=== PATIENT | female | born 1960 | race Caucasian/White ===

== ENCOUNTER → 2017-04-09 | Outpatient (CLI) | payer OTHER ==
[~2017-04-09] MED LIST: AMBIEN 10 MG TA10 MG PO; AMBIEN 5 MG TABL5 M1 PO; ATIVAN1 M1 PO; AUGMENTIN 875875 MG PO; CALCIUM 500 +1 EAC5 PO; CALCIUM/MAGNESIUM PO; CARVEDILOL3.125 MG PO; CIPRO500 MG PO; CIPROFLOXACIN500 M1 PO; CLIMARA 0.070.075 MG TRANSDERM; COLACE100 MG PO; DIFLUCAN200 MG PO; DIOVAN HCT 1601 EAC1 PO; DIPHENHYDRAM50 MG/M2 IV PUSH; DULCOLAX STOOL100 MG PO; FLAGYL500 MG PO; HYDROCODONE-AP1 EAC6 PO; IBUPROFEN 600600 M1 PO; LEVOTHYROXIN0.025 MG PO; LEVOTHYROXINE 0.1 MG PO; LISINOPRIL2.5 MG PO; MAGNESIUM OXID400 MG PO; MILK OF MA2400 MG/10 PO; MIRALAX17 GM PO; MULTIVITAMIN PO; NAPROSYN375 MG PO; NORCO 5-325 TA1 EACH PO; ONDANSETRON HCL4 M2 PO; OTHER MISCELL; PERCOCET 5-3251 EACH PO; PHENERGAN 25 MG25 M1 PO; POTASSIUM20 PO; PROTONIX40 M1 PO; SENOKOT-S1 TA1 PO; SERTRALINE HCL50 MG PO; SPIRONOLACTONE25 M1 PO; TYLENOL325 MG PO; VANCOCIN 250 M250 M1 PO; VENTOLIN HFA 1818 GM INH; VITAMIN B-1100 M1 PO; VIVELLE-DOT1 EAC1 TD; VIVELLE-DOT1 EAC1 TRANSDERM; VIVELLE-DOT1 EAC2 TRANSDERM; XANAX 0.5 MG0.5 MG PO; ZOCOR20 MG PO; ZOFRAN 4 MG ORAL4 MG PO; ZOFRAN ODT4 MG PO; [UNRECOGNIZED DRUG - OTHER] PO
--- NOTE | ~2017-04-09 | EXE ---
[facility] [employer] [place] [address] STRESS ECHOCARDIOGRAM Name: ALLAN PRYOR Room #: [facility]#: [id number] Admission: 04/09/17 Attend Phys: Arjun Cabrera MD Discharge: Date of : 56 Date of Service: 04/09/17 1716 Report #: [id number] THIS REPORT FOR: //name// APPROVED REPORT Exam: Stress Echocardiogram Indication: Chest pain Patient Location: Out-Patient Stress Nurse: Marisol Soto RN HR: 90 bpm Rhythm: NSR Medical History Medical History: Cardiac arrest, cardiomyopathy Allergies: Morphine Cardiac Risk Factors: HTN, Hyperlipidemia, Smoking Procedure The patient underwent an Exercise Stress Test using the Ron Protocol. Blood pressure, heart rate, and EKG were monitored. An Echocardiogram was performed by splicing technician in four stages in quad fashion. At peak stress, four selected images were obtained and placed side by side with resting images for comparison. Stress Test Details Stress Test: Exercise stress testing was performed using a Ron protocol. HR Resting HR: 90 bpm Max Heart Rate (APMHR): 162 bpm Max HR Achieved: 146 bpm Target HR (85% APMHR): 137 bpm % of APMHR: 90 Recovery HR: 104 bpm HR response to stress: Normal HR response to stress BP Resting BP: 127/96 mmHg Max BP: 148/100 mmHg Recovery BP: 118/82 mmHg ECG Resting ECG: Sinus Rhythm, nonspecific ST-T abnormalities Stress ECG: Sinus Rhythm, nonspecific ST-T abnormalities ST Change: Non-ischemic [facility] [address] [place] [address] STRESS ECHOCARDIOGRAM Name: ALLAN PRYOR Room #: [facility]#: [id number] Admission: 04/09/17 Attend Phys: Arjun Cabrera MD Discharge: Date of : 56 Date of Service: 04/09/171715 Report #: [id number] Clinical Reason for Termination: Shaking, short of breath, fatigue Exercise duration: 5 min 4 sec Exercise capacity: 7.00 METs Pre-Stress Echo The resting Echocardiogram showed normal left ventricular contractility with an estimated Ejection Fraction of about 50-55%. Normal wall motion in all segments on baseline images. Post-Stress Echo The stress Echocardiogram showed normal left ventricular contractility with an estimated Ejection Fraction of about 65%. Clinical Normal augmentation of myocardial wall segments using a 17 segment model. Conclusion Clinical Response: Non-ischemic Exercise Capacity: Average Stress ECG Response: Non-ischemic Stress Echo Images: Non-ischemic Other Information Study Quality: Adequate <ELECTRONICALLY SIGNED> By: Arjun Cabrera MD 04/09/171715 15 1716 Arjun Cabrera MD /INF
== END ==
LOC: CV 09:40
DX: R07.9 Chest pain, unspecified (principal)

== ENCOUNTER → 2017-10-28 | Outpatient (CLI) | payer OTHER | LOC: CAT 10-27 12:09 | DX: N28.1 Cyst of kidney, acquired (principal); M47.896 Other spondylosis, lumbar region; Z90.49 Acquired absence of other specified parts of digestive tract; Z90.710 Acquired absence of both cervix and uterus ==

== ENCOUNTER → 2017-11-17 | Outpatient (CLI) | payer OTHER | LOC: NUC 11-06 11:02 | DX: R10.9 Unspecified abdominal pain (principal); R63.4 Abnormal weight loss ==

== ENCOUNTER → 2018-01-13 | Outpatient (CLI) | payer OTHER | LOC: RAD 06:25 | DX: K46.9 Unspecified abdominal hernia without obstruction or gangrene (principal) ==

== ENCOUNTER → 2018-05-03 | Outpatient (CLI) | payer OTHER ==
--- NOTE | ~2018-05-03 | 2DMMODE ---
[facility] [place] [address] 2 D/M-MODE ECHOCARDIOGRAM Name: ALLAN PRYOR Room #: REG [facility]#: [id number] Admission: 05/03/18 Attend Phys: Arjun Cabrera MD Discharge: Date of : 56 Date of Service: 05/03/18 1041 Report #: [id number] THIS REPORT FOR: //name// APPROVED REPORT Study performed: 05/03/2018 09:38:42 EXAM: Comprehensive 2D, Doppler, and color-flow Echocardiogram Patient Location: Out-Patient Status: routine BSA: 1.38 HR: 71 bpm BP: 137/100 mmHg Rhythm: NSR Other Information Study Quality: Adequate/parasternal window Indications Cardiomyopathy, CAD. Hx: Cardiac arrest, HTN 2D Dimensions RVDd: 30.09 mm LVEF(%): 55.36 (>50%) IVSd: 9.03 (7-11mm) LVOT Diam: 19.39 (18-24mm) LVDd: 39.02 mm PWd: 10.22 (7-11mm) LVDs: 27.97 (25-40mm) Aortic Root: 31.30 mm Arnold's LVEF: 55.36 % Volumes Left Atrial Volume (Systole) Single Plane 4CH: 16.36 mL Single Plane 2CH: 20.16 mL Aortic Valve AoV Peak Abhishek.: 1.03 m/s AO Peak Gr.: 4.20 mmHg Mitral Valve E/A Ratio: 0.8 MV Decel. Time: 279.52 ms MV E Max Abhishek.: 0.54 m/s MV A Abhishek.: 0.65 m/s [facility] [address] [address] 2 D/M-MODE ECHOCARDIOGRAM Name: ALLAN PRYOR Room #: [facility]#: [id number] Admission: 05/03/18 Attend Phys: Arjun Cabrera MD Discharge: Date of : 56 Date of Service: 05/03/18 1041 Report #: [id number] PHT: 81.06 ms IVRT: 101.50 ms Pulmonary Valve PV Peak Abhishek.: 0.77 m/s PV Peak Gr.: 2.36 mmHg Tricuspid Valve TR Peak Abhishek.: 2.19 m/s RAP Estimate: 5.00 mmHg TR Peak Gr.: 19.21 mmHg PA Pressure: 24.00 mmHg Left Ventricle The left ventricle is normal size. There is normal LV segmental wall motion. There is normal left ventricular wall thickness. Left ventricular systolic function is normal. LVEF is 50- 55%. Mild diastolic dysfunction is present (impaired relaxation pattern). Right Ventricle The right ventricle is normal size. The right ventricular systolic function is normal. Atria The left atrium size is normal. The right atrium size is normal. Aortic Valve Aortic valve leaflets are mildly thickened. No aortic regurgitation is present. There is no aortic valvular stenosis. Mitral Valve The mitral valve is normal in structure. Trace mitral regurgitation. No evidence of mitral valve stenosis. Tricuspid Valve The tricuspid valve is normal in structure. Mild tricuspid regurgitation. Estimated PAP is 25mmHg. Pulmonic Valve The pulmonary valve is normal in structure. Trace pulmonic regurgitation. Great Vessels The aortic root is normal in size. Ascending aorta is not well visualized. IVC is normal in size and collapses >50% with inspiration. [facility] [place] [address] 2 D/M-MODE ECHOCARDIOGRAM Name: ALLAN PRYOR Room #: REG [facility]#: [id number] Admission: 05/03/18 Attend Phys: Arjun Cabrera MD Discharge: Date of : 56 Date of Service: 05/03/18 1041 Report #: [id number] Pericardium There is no pericardial effusion. <Conclusion> The left ventricle is normal size. There is normal left ventricular wall thickness. Left ventricular systolic function is normal. Mild diastolic dysfunction is present (impaired relaxation pattern). The right ventricle is normal size. The left atrium size is normal. There is no aortic valvular stenosis. Trace mitral regurgitation. Mild tricuspid regurgitation. Estimated PAP is 25mmHg. <ELECTRONICALLY SIGNED> By: Arjun Cabrera MD 05/03/181040 40 40 Arjun Cabrera MD /WHIT
== END ==
LOC: CV 08:52
DX: I07.1 Rheumatic tricuspid insufficiency (principal); I25.10 Atherosclerotic heart disease of native coronary artery without angina pectoris; I42.9 Cardiomyopathy, unspecified; I10 Essential (primary) hypertension

== ENCOUNTER 2019-02-18 18:07 | Inpatient (IN) | payer OTHER ==
[~2019-02-18] VITALS: Ht 162.6 cm; Wt 47.6 kg
[2019-02-18 18:07] VITALS: BP 154/128
[2019-02-18 18:22] LABS: ABSOLUTE NEUTROPHILS 3.6 thou/uL (1.4-8.2); BASOPHILS 0.7 % (0.0-2.0); EOSINOPHILS 1.5 % (0.0-3.0); HEMOGLOBIN 13.6 gm/dL (12.0-15.0); LYMPHOCYTES 27.1 % (24.0-44.0); MCH 36.2 pg (26.0-34.0); MCV 106.6 fL (80.0-100.0); PLATELET COUNT 155 thou/uL (150-400); POLYS 62.7 % (36.0-66.0); RBC 3.75 mil/uL (4.20-5.00); WBC 5.7 thou/uL (4.0-11.0)
[2019-02-18 18:48] LABS: ALBUMIN 4.1 g/dL (3.4-5.0); CALCIUM 10.2 mg/dL (8.5-10.1); TOTAL BILIRUBIN 0.8 mg/dL (<0.1-1.0); TOTAL PROTEIN 8.1 g/dL (6.4-8.2)
--- NOTE | 2019-02-18 19:06 | NUR ---
LAB CALLED REQUESTING MORE URINE FOR ORDERED TESTS. NURSE NOTIFIED
[2019-02-18 19:14] LABS: POTASSIUM 2.9 mmol/L (3.5-5.1)
[2019-02-18 21:32] LABS: URINE BLOOD NEGATIVE (Negative); URINE CLARITY CLEAR; URINE COLOR YELLOW; URINE GLUCOSE-RANDOM* NEGATIVE (Negative); URINE KETONES 1+ (Negative); URINE LEUKOCYTES-REFLEX NEGATIVE (Negative); URINE NITRITE-REFLEX NEGATIVE (Negative); URINE PROTEIN (DIPSTICK) 1+ (Negative); URINE SPECIFIC GRAVITY 1.015 (1.005-1.035); URINE UROBILINOGEN 0.2 E.U./dl (0.2-1.0)
[2019-02-18 21:34] LABS: ICTOTEST (BILI CONFIRMATORY) Negative (Negative); URINE BILIRUBIN NEGATIVE (Negative)
[2019-02-18 21:40] LABS: AMP/METHAMP Negative (Negative); BARBITURATES Negative (Negative); BENZODIAZEPINES Negative (Negative); COCAINE Negative (Negative); METHADONE Negative (Negative); OPIATES Negative (Negative); PCP Negative (Negative)
[2019-02-18 21:41] VITALS: BP 134/106
[2019-02-18 21:42] LABS: CRYSTALS None Seen /LPF (None Seen); HYALINE CASTS 0-3 Few /LPF (None Seen); MUCUS 0-3 Light strn/LPF (None Seen); SQUAMOUS 0-3 Few /LPF (0-3); URINE RBC None Seen /HPF (0-2); URINE WBC-REFLEX 0-5 Rare /HPF (0-5)
[2019-02-18 22:06] VITALS: BP 134/106
[2019-02-18 22:15] VITALS: BP 132/97
[2019-02-18 22:19] LABS: PHOSPHORUS 3.5 mg/dL (2.5-4.9)
[2019-02-18 23:13] LABS: FOLIC ACID 42.7 ng/mL (8.6-58.9)
--- NOTE | 2019-02-18 23:37 | NUR ---
PATIENT WAS A NEW ADMISSION TO THE UNIT THIS SHIFT. SHE ARRIVED VIA CART FROM THE ER AND WAS TRANSFERRED TO THE BED WITHOUT INCIDENT. PATIENT IS FULLY ALERT AND ORIENTED AND ABLE TO PARTICIPATE IN ADMISSION PROCESS AND CALL APPROPRIATELY FOR REQUESTS. SEIZURE PRECAUTIONS INITIATED WITH CIWA SCORE OF 4. NURSE TO COMPLETE ADMISSION PROCESS AND INITIATE CARE PLAN.
[2019-02-18] MEDS ORDERED: SYNTHROID88 MCG PO (23:41)
[2019-02-18 23:50] VITALS: BP 143/104
[2019-02-19 04:40] VITALS: BP 138/100
[2019-02-19 05:41] LABS: CALCIUM 9.1 mg/dL (8.5-10.1); CREATININE 0.7 mg/dL (0.6-1.0); MAGNESIUM 2.8 mg/dL (1.8-2.4); POTASSIUM 3.6 mmol/L (3.5-5.1)
[2019-02-19 07:47] VITALS: BP 139/96
--- NOTE | 2019-02-19 11:03 | EKG ---
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: JIMY : 1960 Requested By: Bishnu Marquis Order Number: [id number] MD: Arjun Cabrera Measurements Intervals [place] Rate: 99 P: 68 FL: 146 QRS: 16 QRSD: 85 T: 12 QT: 364 QTc: 468 Interpretive Statements Sinus rhythm Probable left atrial enlargement Nonspecific ST segment abnormalities Compared to ECG 05/06/2016 12:39:14 Sinus tachycardia no longer present Electronically Signed On 02-19-2019 11:03:42 CDT by Arjun Cabrera [email or web address] ��������������������������������������������� <ELECTRONICALLY SIGNED> ���������������������������������������� By: Arjun Cabrera MD ��������������������������������������������� 02/19/19 1103 16 16 Arjun Cabrera MD /TRAN
[2019-02-19 11:11] VITALS: BP 121/89
[2019-02-19 15:48] VITALS: BP 129/91
[2019-02-19 20:02] VITALS: BP 139/93
--- NOTE | 2019-02-19 21:21 | NUR ---
PT A&OX4, VSS, HAVING TONGUE PAIN. PATIENT HAS A LIDOCAINE SWISH FOR HER TONGUE. MRI AND EEG DONE TODAY. NO SIGNS OF DISTRESS. HAND TREMORS. STEADY ON FEET X1 ASSITST TO BATHROOM. AT BEDSIDE. ALL BED RAILS UP AND PADDED FOR SEIZURE PRECAUTION. FALL BUNDLE IN PLACE. WILL CONTIUE TO MONITOR.
[2019-02-20 05:14] LABS: CALCIUM 9.1 mg/dL (8.5-10.1); CREATININE 0.6 mg/dL (0.6-1.0); MAGNESIUM 1.3 mg/dL (1.8-2.4); PHOSPHORUS 3.6 mg/dL (2.5-4.9); POTASSIUM 3.7 mmol/L (3.5-5.1)
--- NOTE | 2019-02-20 07:30 | NUR ---
Pt. has slept fair during the night. Lorazepam given x2 this shift for anxiety. Tylenol given for headache at HS with good relief. CIWA 2-3. No seizure activities. Seizure precautions maintained. Bed alarm on for safety. Afebrile. No nausea or vomiting. Up with assist to bathroom x1. Will continue to monitor.
[2019-02-20 07:40] VITALS: BP 146/99
[2019-02-20] MEDS ORDERED: VITAMIN B-1100 M2 PO (08:30)
[2019-02-20] MEDS ORDERED: MULTIVITAMINS1 EAC7 PO (08:30)
[2019-02-20 11:23] VITALS: BP 139/97
[2019-02-20 11:24] LABS: CHOLESTEROL 213 mg/dL (<200); HDL CHOLESTEROL 106 mg/dL (>40); LDL CHOLESTEROL 93 mg/dL (<100); TRIGLYCERIDE 71 mg/dL (<150); VLDL 14 mg/dL (<40)
[2019-02-20 15:10] VITALS: BP 147/88
[2019-02-20 19:20] VITALS: BP 142/103
[2019-02-20 19:23] VITALS: BP 138/96
--- NOTE | 2019-02-20 20:55 | NUR ---
ASSUMED CARE OF PATIENT AT 0715, PATIENT ALERT AND ORIENTED X 4. PATIENT UP AD ALLYSON. FALL PRECATIONS IN PLACE, PATIENT AND SPOUSE INSTRUCTED ABOUT BED/CHAIR ALARM, BUT NEEDS REINFORCEMENT. CIWA DONE THIS SHIFT AND IS NORMAL, NO SIDE EFFECTS NOTED. PATIENT C/O PAIN WITH TONGUE AREA, RECEIVED TYLENOL 650 MG X 1 AND LIDOCAINE SWISH AND SPIT X 1 WITH PARTIAL RELIEF. PATIENT HAS RIGHT FOREARM IV WITH NS AT 125CC/HR, PATIENT RECEIVED 1 IV ANTIBIOTIC THIS SHIFT. AT BEDSIDE MOST OF THE DAY. DR KAUR HER THIS AM,A DN ORDER RECEIVED TO DISCHARGE PATIENT TO HOME, WANTS TO SPEAK WITH THE DOCTOR, THIS RN NOTIFIED DR KAUR WHO SPOKE WITH THE , AND PATIENT WILL NOT DISCHARGE TODAY. PATIENT RECEIVED MAGNESIUM 2 GM IVPB X 1 THIS SHIFT, MAGNESIUM LEVEL 1.3. WILL CONTINUE TO MONITOR.
[2019-02-21] VITALS (9 sets, daily range): BP systolic 119–184; BP diastolic 88–124
--- NOTE | 2019-02-21 03:26 | NUR ---
ASSUMED PT CARE AROUND 1900. A&OX4, FORGETFUL. C/O TONGUE PAIN FROM BITING IT AT HOME DURING HER SEIZURE. PAIN MEDICATION GIVEN WITH SOME RELIEF. MILD BILAT HAND TREMORS NOTED. LORAZEPAM GIVEN FOR ANXIETY. PT SLEPT MOST OF THE NIGHT. UP W/ 1 ASSIST TO BTR. FALL PRECAUTIONS IN PLACE. PROGRESSING SLOWLY TOWARD POC GOALS. WILL CONTINUE TO MONITOR FURTHER.
[2019-02-21 05:35] LABS: HEMATOCRIT 33.3 % (37.0-47.0); MCH 36.6 pg (26.0-34.0); MCHC 33.9 g/dL (28.0-37.0); MCV 107.9 fL (80.0-100.0); RBC 3.09 mil/uL (4.20-5.00); RDW 13.3 % (10.5-14.5); WBC 3.7 thou/uL (4.0-11.0)
[2019-02-21 05:36] LABS: HEMOGLOBIN 11.3 gm/dL (12.0-15.0)
[2019-02-21 05:52] LABS: CALCIUM 9.3 mg/dL (8.5-10.1); CREATININE 0.7 mg/dL (0.6-1.0); MAGNESIUM 1.4 mg/dL (1.8-2.4); POTASSIUM 3.6 mmol/L (3.5-5.1)
--- NOTE | 2019-02-21 10:40 | 2DMMODE ---
[facility] [address] [place] [address] 2 D/M-MODE ECHOCARDIOGRAM Name: ALLAN PRYOR Ivan Room #: 354-P [facility] IN M.R.#: [id number] ������������� Admission: 02/18/19 ������������� Attend Phys: Reno Gipson, Discharge: ��� ������������� ��� Date of : 56 Date of Service: 02/21/19 1040 �� Report #: [id number] �������� ��������������������������������������������[id number] THIS REPORT FOR: //name// APPROVED REPORT Study performed: 02/21/2019 10:05:16 EXAM: Comprehensive 2D, Doppler, and color-flow Echocardiogram Patient Location: Echo lab Room #: 354 Status: routine BSA: 1.49 HR: 94 bpm BP: 163/104 mmHg Rhythm: NSR Other Information Study Quality: Good Indications Sycope vs. seizure. Hx: Cardiac arrest x 2. HTN. 2D Dimensions RVDd: 28.88 mm IVSd: 9.34 (7-11mm) LVOT Diam: 20.62 (18-24mm) LVDd: 45.16 mm PWd: 8.56 (7-11mm) LVDs: 33.73 (25-40mm) Aortic Root: 35.45 mm Volumes Left Atrial Volume (Systole) Single Plane 4CH: 21.07 mL Single Plane 2CH: 34.10 mL LA ESV Index: 20.00 mL/m2 Aortic Valve AoV Peak Abhishek.: 0.98 m/s AO Peak Gr.: 3.84 mmHg LVOT Max P.50 mmHg LVOT Max V: 0.79 m/s ALPA Vmax: 2.69 cm2 Mitral Valve E/A Ratio: 0.5 MV Decel. Time: 255.67 ms MV E Max Abhishek.: 0.49 m/s [facility] [address] [place] [address] 2 D/M-MODE ECHOCARDIOGRAM Name: ALLAN PRYOR [facility] [id number] ������������� Admission: 02/18/19 ������������� Attend Phys: Reno Gipson, Discharge: ��� ������������� ��� Date of : 56 Date of Service: 02/21/19 1040 �� Report #: [id number] �������� ��������������������������������������������[id number] MV A Abhihsek.: 0.91 m/s MV PHT: 74.15 ms IVRT: 110.73 ms Pulmonary Valve PV Peak Abhishek.: 0.55 m/s PV Peak Gr.: 1.21 mmHg Pulmonary Vein P Vein S: 0.78 m/s P Vein D: 0.38 m/s P Vein S/D Ratio: 2.05 Tricuspid Valve TR Peak Abhishek.: 2.22 m/s RAP Estimate: 5.00 mmHg TR Peak Gr.: 19.79 mmHg PA Pressure: 25.00 mmHg Left Ventricle The left ventricle is normal size. There is normal LV segmental wall motion. There is normal left ventricular wall thickness. Left ventricular systolic function is normal. LVEF is 55%. Mild diastolic dysfunction is present (impaired relaxation pattern). Right Ventricle The right ventricle is normal size. The right ventricular systolic function is normal. Atria The left atrium size is normal. The right atrium size is normal. Aortic Valve Aortic valve leaflets are mildly thickened. Trace aortic regurgitation. There is no aortic valvular stenosis. Mitral Valve The mitral valve is normal in structure. Trace to mild mitral regurgitation. Tricuspid Valve The tricuspid valve is normal in structure. Mild tricuspid regurgitation. Estimated PAP is 25mmHg. Pulmonic Valve Pulmonic valve is not well visualized. Trace pulmonic regurgitation. [facility] [address] [place] [address] 2 D/M-MODE ECHOCARDIOGRAM Name: ALLAN PRYOR Room #: 354-P [facility] IN .R.#: [id number] ������������� Admission: 02/18/19 ������������� Attend Phys: Reno Gipson, Discharge: ��� ������������� ��� Date of : 56 Date of Service: 02/21/19 1040 �� Report #: [id number] �������� ��������������������������������������������[id number] Great Vessels The aortic root is normal in size. Ascending aorta is not well visualized. IVC is normal in size and collapses >50% with inspiration. Pericardium There is no pericardial effusion. <Conclusion> The left ventricle is normal size. There is normal left ventricular wall thickness. Left ventricular systolic function is normal. Mild diastolic dysfunction is present (impaired relaxation pattern). The right ventricle is normal size. The left atrium size is normal. The right atrium size is normal. Trace aortic regurgitation. Trace to mild mitral regurgitation. Mild tricuspid regurgitation. Estimated PAP is 25mmHg. ��������������������������������������������� <ELECTRONICALLY SIGNED> ���������������������������������������� By: Arjun Cabrera MD ��������������������������������������������� 02/21/19 1040 1040 1040 Arjun Cabrera MD /INF
--- NOTE | 2019-02-21 13:54 | NUR ---
Nutrition: Pt seen due to BMI 18. Admitted following seizure. Hx Daily ETOH, cardiac arrest, multiple abdominal surgeries. Reports current weight is 97# which has has been trending up from a low of 88# 2 months ago. 128# 5 years ago prior to diverticulitis dx/surgeries. Appetite reportedly good. No visible wasting. Agrees to Ensure once a day. Possible discharge noted. Low risk for now.
--- NOTE | 2019-02-21 13:57 | NUR ---
ASSESSMENT: CM REVIEWED CHART AND MET WITH PATIENT AND HER AT THE BEDSIDE. PT REPORTS SHE LIVES IN A HOME WITH HER . PT HAS TWO STEPS TO ENTER WITH NO HANDRAILS. PT REPORTS 14 STEPS WITH HANDRAILS TO HER BEDROOM. PT REPORTS SHE AMBULATES INDEPENDENTLY BUT DOES HAVE A CANE/WALKER/WHEELCHAIR. PT REPORTS SHE IS INDEPENDENT WITH ADLS. PT REPORTS HAVING A GRAB BAR AND SHOWER CHAIR. PT REPORTS SHE DOES NOT NEED HH AT DISCHARGE. PT REPORTS SHE HAS HAD [facility] IN THE PAST. CM DISCUSSED ROLE. PT DOES NOT ANTICIPATE HAVING ANY NEEDS AT DISCHARGE. CM WILL CONTINUE TO FOLLOW TO ASSIST NEEDED.
[2019-02-21] MEDS ORDERED: LIPITOR 20 MG T20 M1 PO (14:52)
[2019-02-21] MEDS ORDERED: TRI-BUFFERED A325 M1 PO (14:59)
[2019-02-22 04:25] VITALS: BP 118/84
--- NOTE | 2019-02-22 06:07 | NUR ---
PATIENT IS PROGRESSING IN HER CARE PLAN. VITAL SIGNS STABLE WITH PATIENT HAVING NO COMPLAINTS OF NAUSEA. PATIENT DID COMPLAIN OF PAIN WHICH WAS TREATED EFFECTIVELY WITH MEDICATION AND NON PHARMACOLOGICAL INTERVENTION. PATIENT HAS REMAINED FULLY ORIENTED AND ABLE TO CALL APPROPRIATELY FOR REQUESTS. CIWA ASSESSMENT NEGATIVE. PATIENT HAS BEEN UP TO BATHROOM MULTIPLE TIMES WITH ASSISTANCE INCIDENT FREE BUT IS STILL CONSIDERED HIGH FALL RISK. POSSIBLE DISCHARGE SOON. CONTINUE PLAN OF CARE.
[2019-02-22 07:20] VITALS: BP 142/108
[2019-02-22 08:59] LABS: CREATININE 0.7 mg/dL (0.6-1.0); MAGNESIUM 1.7 mg/dL (1.8-2.4); POTASSIUM 3.5 mmol/L (3.5-5.1)
[2019-02-22 11:21] VITALS: BP 152/111
--- NOTE | 2019-02-22 14:50 | NUR ---
ON-GOING ASSESSMENT: CM REVIEWED CHART. PT IS POSSIBLE DISCHARGE LATER TODAY OR TOMORROW. PT DENIES HAVING ANY NEEDS FROM CM.
--- NOTE | 2019-02-22 15:47 | HC ---
[facility] [address] CONSULTATION Name: ALLAN PRYOR Room #: 354-P ADM IN M.R.#: [id number] Admission: 02/18/19 ������������������ Attend Phys: Reno Gipson MD Discharge: ������������������ Date of : 56 Report #: [id number] THIS REPORT FOR: //name// CC: Reno Gipson Physician staff DONNIE PETERSEN DATE OF SERVICE: 02/20/2019 We were asked by Dr. Gipson to see the patient. HISTORY OF PRESENT ILLNESS: The patient is a 58-year-old with seizure disorder. The patient was admitted 02/21/2019. The patient has a pertinent history of cardiac arrest in 2014 after ventral hernia repair. At that time, the patient was thought to have arrhythmias. The patient has done reasonably well, but has had problems with persistent incisional ventral hernia and has nutrition issues. It is not clear what led to the seizure, but it may be nutritional issues, as magnesium was low on admission and potassium was relatively low. In any event, during the workup, an MRI/MRA was done and the report, although somewhat dubious, states that there is low flow or possibly occlusion of the left carotid artery and for this, our input was requested. PAST MEDICAL HISTORY: Past history, as mentioned, is significant for the cardiac arrest. This was done when Opal procedure colostomy done in 2013 was being taken down and the patient was being hooked up again. The patient was noted to have a cardiomyopathy in 11/2014 with an ejection fraction in the 20% to 25% range; by 04/24, ejection fraction was normal. The Opal procedure was originally done for diverticulitis. SOCIAL HISTORY: The patient states she is generally healthy, otherwise. FAMILY HISTORY: Positive for diabetes mellitus and kidney disease in mother. Father had heart disease and hypertension. ALLERGIES: THE PATIENT IS ALLERGIC TO MORPHINE AND BEE STINGS. HOME MEDICATIONS: Albuterol, amitriptyline, aspirin, carvedilol, hyoscyamine sulfate (Levsin), levothyroxine, Lortab, magnesium, Naprosyn, omeprazole, potassium, promethazine, sertraline and tizanidine. REVIEW OF SYSTEMS: GENERAL: The patient states she is quite thin and had lost some weight, but her weight was rising. No fever. HENT: No hearing changes. No sinus drainage. EYES: No vision change. [address] [address] CONSULTATION Name: ALLAN PRYOR Room #: 354-P [facility] IN [facility]#: [id number] Admission: 02/18/19 ������������������ Attend Phys: Reno Gipson MD Discharge: ������������������ Date of : 56 Report #: [id number] RESPIRATORY: No cough or shortness of breath. CARDIAC: No chest pain. No exertional dyspnea. GASTROINTESTINAL: Has chronic problems with early satiety and bloating, but she is able to control this with medications and diet. GENITOURINARY: No burning or frequency. MUSCULOSKELETAL: No bone or joint pain. SKIN: No rash or infection. NEUROLOGIC: As mentioned, the patient was admitted with seizure. PHYSICAL EXAMINATION: PSYCHIATRIC: The patient is alert and oriented. VITAL SIGNS: Blood pressure 163/104, heart rate 82, respiratory rate 16, temperature 98.9 and O2 sat 94. HEENT: No scleral icterus, no arcus. Normocephalic. Pupils are round and equal. NECK: No mass, no bruit. CHEST: Clear. HEART: Rhythm regular. ABDOMEN: Soft. Ventral hernia noted. PSYCHIATRIC: Shows insight into problem and answers questions appropriately. NEUROLOGIC: No obvious motor or sensory dysfunction. MUSCULOSKELETAL: No bone or joint asymmetry or deformity. SUMMARY: I reviewed the findings with the patient. If there is total occlusion of the carotid, then no further surgical indication exists. If there is substantial doubt about the MRI/MRA, then we should obtain a CT angiogram. I will leave this to the other consults, but as mentioned, if there is substantial doubt, then we should do a confirmatory study and then ultimately the recommendation will be based on that. Thank you for the consult. ��������������������������������������������� <ELECTRONICALLY SIGNED> ���������������������������������������� By: Mohamud Liu MD ��������������������������������������������� 02/22/19 1547 1538 [id number] Mohamud Liu MD /nt
[2019-02-22 15:59] VITALS: BP 136/105
[2019-02-22 16:02] VITALS: BP 142/89
--- NOTE | 2019-02-22 16:21 | NUR ---
ASSUMED CARE OF PT AT APPROX 0700. PT IS ALERT AND ORIENTED X4, MONITORED ON TELE AND ABLE TO MAINTAIN 02 SAT >90 ON RA. EVEN NON LABORED BREATHING. PT IS MONITORED ON TELE. AT BEDSIDE. ASSESMENT CHARTED. PT I ANXIOUS TO LEAVE. NEW CONSULT FOR NEURO AND RENAL US ORDERED. PT TO BE NPO AFTER MIDNIGHT FOR RENAL US. PT AWARE SHE WILL BE HERE ANOTHER DAY AND WILL NOT DC TODAY PLANNED. PT IS TEARFUL, BUT AGREEABLE. BP TREATED WITH ORDERED MEDS. PATIENT AND HAVE BEEN UPDATED ON POC AND DENY AND FURTHER QUESTIONS OR CONCERNS AT THIS TIME. PT IS UP ADLIB IN ROOM AND HALLWAYS. MAKING GOOD PROGRESS TOWARDS POC GOALS. WILL CONTINUE TO MONITOR.
[2019-02-22 19:45] VITALS: BP 149/105; BP 152/105
[2019-02-23 03:45] VITALS: BP 119/80; BP 137/100
[2019-02-23 06:35] VITALS: BP 135/95
[2019-02-23 07:38] VITALS: BP 113/83; BP 114/86
--- NOTE | 2019-02-23 08:02 | NUR ---
PATIENT IS PROGRESSING IN CARE PLAN. VITAL SIGNS STABLE WITH PATIENT HAVING NO COMPLAINTS OF PAIN. PATIENT DID COMPLAIN OF NAUSEA WHICH WAS TREATED APPROPRIATELY. PATIENT REMAINED ORIENTED BUT ANXIOUS OVER SHIFT, AND WAS ABLE TO CALL APPROPRIATELY FOR NEEDS. CIWA COMPLETED. PATIENT WAS UP AD ALLYSON THROUGHOUT SHIFT WITHOUT INCIDENT APPEARING STRONG AND BALANCED WHEN WALKING. CONTINUE PLAN OF CARE.
[2019-02-23 11:32] VITALS: BP 112/82; BP 124/90
--- NOTE | 2019-02-23 11:56 | NUR ---
ON-GOING ASSESSMENT: CM REVIEWED CHART AND SPOKE WITH ATTENDING. PLANS ARE FOR PATIENT TO LIKELY DISCHARGE HOME TODAY. PT REPORTS SHE WILL HAVE NO NEEDS AT DISCHARGE. PTS IS PRESENT AND IS ABLE TO TAKE HER HOME ONCE DISCHARGED.
[2019-02-23] MEDS ORDERED: NORVASC10 MG PO (13:09)
[2019-02-23 14:02] VITALS: BP 124/90
--- NOTE | 2019-02-23 16:51 | NUR ---
ASSUMED CARE OF PT AT APPROX 0700. PT IS ALERT ANDOIRENTED X4. MONITORED ON TELE AND ABLE TO MAINTAIN 02 SAT >90 ON 02 SETTINGS VIA NC. DENIES PAIN AND SOA. EVEN NON LABORED BREATHING AT REST BUT DOES GET LABORED WITH ACTIVITY. 02 SAT REMAINS STABLE AND PT ABLE TO RECOVER QUICKLY. ASSESSMENT CHARTED. THIS AFTERNOON PT COMPLAINS OF CHEST PAIN AND BP IS ELEVATED DOCTOR NOTIFIED AND ORDERED NITRO AND EKG. PT REFUSES NITRO AND STATES THAT IT IS NOT HER CHEST IT IS HER BREAST. BREAST EXAMINED. NO SWELLING OR CHANGE IN TEMPERATURE. PT REQUESTED MEDICATION FOR ANXIETY, ADMINISTERED TO PT. PT AND FAMILY HAVE BEEN UPDATED ON POC. WILL CONTINUE TO MONITOR.
--- NOTE | 2019-02-23 16:58 | NUR ---
ASSUMED CARE OF PT AT APPROX 0700. PT IS LAERT AND ORIENTED X4, MONITRED ON TELE AND ABLE TO MAINTAIN 02 SAT >90 ON RA. DENIES PAIN AND SOA. BP CONTROLLED. PT NPO FOR RENAL US. PT IS ANXIOUS FOR DC. RECIEVED DC ORDERS. COMPLETED DC. WENT OVER DC PAPERWORK WITH PT AND NEW RX. PATIENT AND DENY ANY QUESTIONS REGARDING DC. PT HAS MET POC GOALS OF DC.
--- NOTE | 2019-02-24 10:08 | HC ---
[facility] [place] [address] CONSULTATION Name: ALLAN PRYOR Room #: 354-P [facility] IN .R.#: [id number] Admission: 02/18/19 ������������������ Attend Phys: Reno Gipson MD Discharge: 02/23/19 ������������������ Date of : 56 Report #: [id number] THIS REPORT FOR: //name// CC: Reno Gipson Physician staff DONNIE PETERSEN DATE OF SERVICE: 02/23/2019 NEPHROLOGY CONSULTATION ATTENDING PHYSICIAN: Dr. Gipson. REASON FOR CONSULTATION: Difficult hypertension. HISTORY OF PRESENT ILLNESS: This 58-year-old patient is known to our service from a prior episode of acute renal failure and electrolyte abnormalities, status post prior cardiac arrest 3-4 years ago after surgery for diverticulitis. She recovered from all that, but at this time, was admitted with seizure disorder, mental status changes. She was found on further evaluation, occluded left common carotid and a partially occluded right carotid artery and difficult hypertension and we are seeing her for that. 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 She had a cardiac arrest after surgery. She has got a fairly heavy alcoholism history as well as a smoking history and history of electrolyte disorders related to the alcoholism including hypomagnesemia. She had a colostomy one time that was repaired. She has got an incisional hernia. She has had mild hypertension and has been on only a small dose of carvedilol for that. PAST MEDICAL HISTORY: As alluded to above. CURRENT MEDICATIONS: Include carvedilol 3.125 mg b.i.d., hydralazine 25 mg t.i.d., amlodipine 10 mg daily. FAMILY HISTORY: She had mother with diabetes, hypertension, end-stage renal disease, who was on dialysis, had a kidney transplant. SOCIAL HISTORY: She is a heavy smoker and heavy drinker as well. REVIEW OF SYSTEMS: GENERAL: She is feeling reasonably well. EYES: Her vision is okay. ENT: Hearing okay, swallows okay. No mouth sores. ENDOCRINE: No diabetes. [facility] [address] [place] [address] CONSULTATION Name: ALLAN PRYOR Ivan Room #: 354-P [facility] IN ..#: [id number] Admission: 02/18/19 ������������������ Attend Phys: Reno Gipson MD Discharge: 02/23/19 ������������������ Date of : 56 Report #: [id number] RESPIRATORY: No shortness of air, pleuritic pain or hemoptysis. GASTROINTESTINAL: No nausea, vomiting or diarrhea. GENITOURINARY: Good urinary stream without dysuria, hematuria or renal stone. NEUROLOGIC: She did have a seizure, but she is well now. MUSCULOSKELETAL: Negative. PHYSICAL EXAMINATION: GENERAL: Reasonably well-appearing patient. She is calm and relaxed today. SKIN: Unremarkable. SKELETAL: Shows her to be well developed, well nourished, somewhat thin. HEENT: Extraocular movements are full. No scleral icterus. Hearing and vision intact. Mucous membranes moist. Tongue, buccal mucosa benign. NECK: Supple, no carotid bruits are heard. CHEST: Clear to auscultation. HEART: Regular. ABDOMEN: Soft. A small incisional hernia noted in the anterior abdomen. EXTREMITIES: Show no peripheral edema. Pulses intact. NEUROLOGIC: Intact. LABORATORY DATA: Creatinine is good at 0.7. ASSESSMENT AND PLAN: Hypertension. She has some difficult hypertension. Of course, with her occluded left common carotid and partially occluded right, we would be cautious about over control of her blood pressure. I would recommend discontinuation of the hydralazine. Continue with the carvedilol and amlodipine at the current time with careful followup by her primary care physician and possibly neurosurgical followup. ��������������������������������������������� <ELECTRONICALLY SIGNED> ���������������������������������������� By: Lev Thompson MD ��������������������������������������������� 02/24/19 1008 1004 41 Lev Thompson MD /nt
--- NOTE | 2019-03-01 14:11 | HC ---
[facility] [place] [address] CONSULTATION Name: ALLAN PRYOR Room #: 354-P [facility] IN M.R.#: [id number] Admission: 02/18/19 ������������������ Attend Phys: Reno Gipson MD Discharge: 02/23/19 ������������������ Date of : 56 Report #: [id number] THIS REPORT FOR: //name// CC: Esdras Kelly Physician staff DONNIE PETERSEN DATE OF SERVICE: 02/18/2019 HISTORY OF PRESENT ILLNESS: This is a 58-year-old female patient who was evaluated by me for a history of tonic-clonic seizure. The patient saw Dr. Arriola in 2014 for a grand mal seizure, which occurred after a cardiac arrest and in relation to lidocaine. She has not had any seizure since then. She drinks about four alcoholic drinks a day. She used to drink more. She has cut back. She was not withdrawing when this seizure happened. The history is that of a grand mal seizure. She mostly feels back to her baseline now. REVIEW OF SYSTEMS: Indicates that this patient had a history of seizure. She had a history of cardiac arrest. She had colon problem. She has a history of hysterectomy, thyroid lobectomy and abdominal surgeries. Reversal of colostomy. She does have some abdominal issues now. She believes she does not have any eye, ENT, cardiac, respiratory, , musculoskeletal, constitutional, dermatological, hematological, psychiatric, throat, allergic symptoms which are new and associated with present symptomatology. PAST MEDICAL HISTORY: Positive for seizure, but happened long time ago. FAMILY HISTORY: Negative for seizure. SOCIAL HISTORY: She drinks alcohol virtually every day. PHYSICAL EXAMINATION: The patient's examination indicate she is alert, responsive, able to follow simple commands. She is oriented. Her speech is back to her baseline. Cranial nerve examination 2-12 looks mostly unremarkable. She has a good position sense in both lower extremities. She indicates that she has trouble with tandem walking or with the balance that is going on for a few months. Her position sense is intact. There is no meningeal sign. I could not look at the patient's fundus. She has no edema, cyanosis or jaundice. She is moderately built individual who does not have any dysmorphic features of eyes, ears and face. Blood pressure is 134/106, respiration is 14, pulse is 101 and temperature is 98.7. LABORATORY DATA: Indicates a normal white count, but MCV is high. Urine indicates normal wbc's. She did have a CT scan of the head, which appeared unremarkable. [place] [id number] CONSULTATION Name: ALLAN PRYOR Room #: [address] [place] [address]#: [id number] Admission: 02/18/19 ������������������ Attend Phys: Reno Gipson MD Discharge: 02/23/19 ������������������ Date of : 56 Report #: [id number] IMPRESSION: This patient had another seizure. She consumes significant amount of alcohol and the blood reflects that. I discussed the situation with her. I discussed with her that we will do the work up. Workup is typically normal. It is your choice if you want to go on seizure medications or not. She does have an option of stopping alcohol altogether and see if that helps. She also has option of going on seizure medication. Either way, she has to stop drinking alcohol altogether. She cannot drive for 6 months and she needs to take seizure precautions. We will try to do rest of the workup tomorrow and see if that shows something. Thank you very much for this referral. ��������������������������������������������� <ELECTRONICALLY SIGNED> ���������������������������������������� By: Blaise Pantoja MD ��������������������������������������������� 03/01/19 1411 [id number] Blaise Pantoja MD /nt
--- NOTE | 2019-03-01 14:11 | EEG ---
[facility] [place] [place] [address] ELECTROENCEPHALOGRAM Name: ALLAN PRYOR Room #: 354-P [facility] IN M.R.#: [id number] ������������������ Admission: 02/18/19 ������������������ Attend Phys: Reno Gipson MD Discharge: 02/23/19 ������������������ Date of : 56 Report #: [id number] ����������������������������������������������������������������� [id number] THIS REPORT FOR: //name// CC: Esdras Kelly Physician staff DONNIE PETERSEN DATE OF SERVICE: 02/19/2019 This patient is being evaluated for seizure. EEG was done by placing the electrodes by standard 10-20 system of electrode placement. Both referential and sequential montages were used for recording. Background activity in this patient's EEG is about 11 Hz and 30 microvolt. It is a symmetrical activity. The patient became drowsy and that is associated with bilateral slowing and vertex sharp waves. Photic stimulation is unremarkable. Throughout the record, no active epileptiform activity was noticed. IMPRESSION: This patient's EEG is unremarkable. Thank you very much for this referral. ���������������������������������������� <ELECTRONICALLY SIGNED> ���������������������������������������� By: Blaise Pantoja MD ��������������������������������������������� 03/01/19 1411 1415 1538 Blaise Pantoja MD /nt
== END 2019-02-23 17:13 | disposition home or self-care (01) | DRG 101 ==
LOC: ER 18:07 → EROBS 19:51 → 3W 19:51 → ENTRNSPT 02-23 15:21 → EDTRNSPTSTS 02-23 15:23 → 3W 02-23 17:13
PROVIDERS: Nurse Practitioner; Nurse Practitioner Family; ADMIT Internal Medicine
DX: G40.409 Other generalized epilepsy and epileptic syndromes, not intractable, without status epilepticus (principal); F10.10 Alcohol abuse, uncomplicated; I10 Essential (primary) hypertension; E87.6 Hypokalemia; I65.22 Occlusion and stenosis of left carotid artery; E83.42 Hypomagnesemia; E03.9 Hypothyroidism, unspecified; Z86.74 Personal history of sudden cardiac arrest; Z93.3 Colostomy status; Z90.710 Acquired absence of both cervix and uterus; Z79.899 Other long term (current) drug therapy; Z88.6 Allergy status to analgesic agent; Z91.030 Bee allergy status
CPT/HCPCS: 10879

== ENCOUNTER 2019-03-03 11:44 | Inpatient (IN) | payer OTHER ==
[~2019-03-03] VITALS: Ht 160 cm; Wt 51.3 kg
--- NOTE | ~2019-03-03 | PLAN ---
[facility] [place] [address] REHAB UNIT PLAN OF CARE Name: ALLAN PRYOR Room #: 504-1 ADM IN M.R.#: [id number] Admission: 03/03/19 ������������������ Attend Phys: Dimitrios Reno MD Discharge: ������������������ Date of : 56 Report #: [id number] THIS REPORT FOR: //name// CC: Dimitrios Reno Physician staff DONNIE PETERSEN DATE OF SERVICE: 03/05/2019 PROGRESS NOTE/OVERALL PLAN OF CARE HISTORY: The patient was seen earlier. Last recorded temperature 37.9, pulse 85, respirations 18, blood pressure is 125/87. Nursing notes they had assisted her to the bathroom several times overnight. She appears to be draining well with her residual at 52 mL. She has been working in therapies with transfers, min assist. Gait min assist 50 feet front-wheeled walker. She was mod assist to go up and down stairs. In occupational therapy, lower body dressing is min assist. Speech therapy, mild comprehensive deficits. She has [id number] cognitive deficits, moderate memory deficits. ASSESSMENT: 1. Left hip intertrochanteric fracture status post intramedullary nail on 02/28/2019. 2. Carotid stenosis. Appreciate Cardiology involvement. 3. Partial small-bowel obstruction with prior bowel surgery, colostomy and takedown. 4. Deep venous thrombosis prophylaxis, on Lovenox. 5. History of seizure disorder. 6. Hypertension. 7. Past history of cardiac arrest x 2. 8. Tobacco and alcohol abuse in the past. PLAN: The overall plan of care is based on the preadmission screen, post-admission physician evaluation and information garnered from therapy assessments. 1. Estimated length of stay is probably 7-10 days. 2. Medical prognosis is reasonably good. 3. Anticipated interventions includes the interdisciplinary acute inpatient rehabilitation program. 4. Anticipated functional outcomes would be for the patient to become modified independent with transfers, mobility and ADLs at a walker level as well as improvement as far as overall cognition. She does have speech therapy involved and has the prior significant complications with the cardiac arrest x 2. 5. Discharge destination would be back home with her . [address] [address] REHAB UNIT PLAN OF CARE Name: ALLAN PRYOR Room #: 504-1 ADM IN .R.#: [id number] Admission: 03/03/19 ������������������ Attend Phys: Dimitrios Reno MD Discharge: ������������������ Date of : 56 Report #: [id number] 6. Expected therapy by additional PT, OT and speech 1 hour per day each five days a week throughout the duration of the acute inpatient rehabilitation stay. ��������������������������������������������� ���������������������������������������� By: ��������������������������������������������� 0741 0957 Dimitrios Reno MD /nt
[~2019-03-03 11:44] MED LIST changes: +LIPITOR 20 MG T20 M1 PO; +MULTIVITAMINS1 EAC7 PO; +NORVASC10 MG PO; +SYNTHROID88 MCG PO; +TRI-BUFFERED A325 M1 PO; +VITAMIN B-1100 M2 PO
[2019-03-03] MEDS ORDERED: AMITRIPTYLINE H10 M3 PO (12:32)
[2019-03-03] MEDS ORDERED: FOLIC ACID1 MG PO (12:33)
[2019-03-03] MEDS ORDERED: NEURONTIN600 MG PO (12:37)
[2019-03-03] MEDS ORDERED: NEURONTIN300 MG PO (12:43)
[2019-03-03] MEDS ORDERED: LIDODERM1 EACH TRANSDERM (12:47)
[2019-03-03] MEDS ORDERED: MILK OF MA2400 MG/11 PO (12:50)
[2019-03-03] MEDS ORDERED: OXYCODONE HCL 55 MG PO (13:01)
[2019-03-03] MEDS ORDERED: OXYCODONE HCL10 MG PO (13:03)
[2019-03-03] MEDS ORDERED: OXYCODONE HCL15 MG PO (13:05)
[2019-03-03] MEDS ORDERED: MIRALAX17 GM PO (13:06)
[2019-03-03] MEDS ORDERED: SENOKOT-S1 TA2 PO (13:08)
[2019-03-03] MEDS ORDERED: ZOLOFT50 MG PO (13:09)
--- NOTE | 2019-03-03 14:55 | NUR ---
chart review. pt new to [facility] from today. pt is a & o x 3 with some forgetfulness. pleasant and able to make her needs know. pt preferrs going by cheri. intro to cm, dcp, and team meetings. " ok i want to get home so will work on that"/pt. cheri reported " live in house with and youngest son. independent prior to hospital , getting ready for son and family to come in from in [place] carrying up laundry let go of hand rails, fell backwards down 6 to landing then 6 more to hardwood floor. 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 3 steps to front door - no hand rails. 16 steps inside house. independent with cooking, cleaning, dressing, manage own medication but my helps because all the medication changes. can drive but don't drive often. PCP is Marilin Shook at . 1 fall in last year, slipped out of bed and hit head on night stand."/chrei. per chart pt has cane, walker and wheel chair that she does not use. bedside nurse in room during visit as well. will cont following as needed for dc needs.
[2019-03-03 15:43] VITALS: BP 131/85
--- NOTE | 2019-03-03 15:45 | NUR ---
1450 ADMITTED TO ROOM 504. PATIENT IS ALERT AND ORIENTED X4. PATIENT LARIOS, PLASTICS PATTERNMAKER ARE EQUAL. LUNGS ARE CLEAR. ABD IS SOFT WITH BSX4. PATIENT HAS TWO INCISIONS ON HER LEFT HIP. PATIENT HAS TRACE EDEMA IN HER LEFT LEG. PLAN FOR MARTHA HOSE TO LOWER EXTREMITIES. PATIENT WEARS GLASSES AND HAS HER OWN TEETH. PATIENT IS WBAT WITH GAIT BELT AND WALKER AND ASSIST OF 1 STAFF. FALL AND SAFTY PROTOCOLS IN PLACE. C/O PAIN IN HER LEFT HIP. PATIENT WILL HAVE EVALS FOR OT/PT/ST IN A.M. PATIENT WT 113 LBS. PATIENT VSS 131/85, P71, R 16, T 98. 02 SAT 96 % ON R.A. PATIENT IS ON REGULAR DIET. WILL CONTINUE TO MONITER.
[2019-03-03 19:10] VITALS: BP 121/90
--- NOTE | 2019-03-04 00:15 | NUR ---
PT ASSESSMENT COMPLETED AND VSS. MEDS GIVEN ORDERED AND WELL TOLERATED. FALL PRECAUTIONS IN PLACE. UP TO THE BATHROOM WITH ASST/GAIT/WALKER. STEADY. PRN PAIN MEDICATION HELPFUL. REPOSITIONING FREQUENTLY. SLEEPING AT THIS TIME. SEIZURE PADS IN PLACE. WILL CONTINUE TO MONITOR FREQUENTLY.
[2019-03-04 06:09] LABS: HEMATOCRIT 23.2 % (37.0-47.0); HEMOGLOBIN 7.9 gm/dL (12.0-15.0); MCH 36.4 pg (26.0-34.0); RBC 2.17 mil/uL (4.20-5.00); RDW 13.2 % (10.5-14.5); WBC 7.1 thou/uL (4.0-11.0)
[2019-03-04 06:32] LABS: CALCIUM 9.3 mg/dL (8.5-10.1); CREATININE 0.6 mg/dL (0.6-1.0); MAGNESIUM 1.6 mg/dL (1.8-2.4); POTASSIUM 3.7 mmol/L (3.5-5.1)
--- NOTE | 2019-03-04 18:25 | NUR ---
ASSUMED CARE OF PT AT 0715. PT IS A&OX4 AND VITAL SIGNS ARE STABLE. PT TRANSFERS AND AMBULATES WITH 1 PERSON MINIMAL ASSIST WITH GAIT BELT AND WALKER. PT TAKES MEDICATIONS WHOLE WITH THIN LIQUIDS. DRESSINGS TO LLE C/D/I. PATIENT REPORTED PAIN DURING SHIFT AND WAS MANAGED WITH ORAL PAIN MEDICATIONS, PATIENT PARTICIPATED IN SCHEDULED THERAPIES. FALL PRECAUTIONS IN PLACE AND NURSING WILL CONTINUE TO MONITOR.
[2019-03-04 20:00] VITALS: BP 125/87
--- NOTE | 2019-03-05 03:09 | NUR ---
assumed care at approx 1900 evening 03/04. pt alert and oriented x4, appropriate and cooperative. pt visiting with at bedside at change o shift. pt assisted up to bathroom several times in night. bladder scanned and showed post residual as 52 ml. pt took hs meds with water tolerating well. pt given pain meds as ordered. pt appears to be sleeping now with hourly rounding. bed alarm on and call light in reach. will continue to monitor.
[2019-03-05 07:42] VITALS: BP 140/89
--- NOTE | 2019-03-05 15:25 | NUR ---
ASSUMED CARE OF PT AT 0715. PT IS A&OX4 AND VITAL SIGNS ARE STABLE. PT PAIN MANAGED WITH ORAL MEDICATIONS AND PT WAS ABLE TO PARTICIPATE IN SCHEDULED THERAPIES. DRESSINGS X2 TO THE LLE C/D/I ORDERS PER ORTHO SURGEON TO LEAVE DRESSING IN PLACE UNTIL F/U AND ONLY CHANGE IF SOILED WITH XEROFORM, 2X2 GUAZE AND TEGADERM. TRANSFERS AND AMBULATES WITH STANDBY ASSISTANCE USING GAIT BELT AND WALKER. SEIZURE PRECAUTIONS IN PLACE FOR HX OF SEIZURES. FALL PRECAUTIONS IN PLACE AND NURSING WILL CONTINUE TO MONITOR.
[2019-03-05 18:50] LABS: URINE BILIRUBIN NEGATIVE (Negative); URINE BLOOD NEGATIVE (Negative); URINE CLARITY CLEAR; URINE COLOR YELLOW; URINE GLUCOSE-RANDOM* NEGATIVE (Negative); URINE KETONES NEGATIVE (Negative); URINE LEUKOCYTES-REFLEX NEGATIVE (Negative); URINE NITRITE-REFLEX NEGATIVE (Negative); URINE PROTEIN (DIPSTICK) NEGATIVE (Negative); URINE SPECIFIC GRAVITY <= 1.005 (1.005-1.035); URINE UROBILINOGEN 0.2 E.U./dl (0.2-1.0)
[2019-03-05 19:30] VITALS: BP 109/87
--- NOTE | 2019-03-06 00:29 | NUR ---
PT ASSESSMENT COMPLETED AND VSS. MEDS GIVEN ORDERED AND WELL TOLERATED. FALL PRECAUTIONS IN PLACE. UP TO THE BSC WITH ASST/GAIT/WALKER. STEADY. DSG ON L HIP X 2 DRY AND INTACT. SLEEPING AND PAIN MEDICATION WORKING WELL. SLEEPING. WILL CONTINUE TO MONITOR FREQUENTLY.
--- NOTE | 2019-03-06 15:51 | HC ---
[facility] [place] [address] [place] [address] CONSULTATION Name: ALLAN PRYOR Room #: 504-1 ADM IN M.R.#: [id number] Admission: 03/03/19 ������������������ Attend Phys: Dimitrios Reno MD Discharge: ������������������ Date of : 56 Report #: [id number] THIS REPORT FOR: //name// CC: Dimitrios Reno Physician staff DONNIE TRINITY DATE OF SERVICE: 03/05/2019 NEUROBEHAVIORAL STATUS EXAM ATTENDING PHYSICIAN: Dimitrios Reno MD MILL STENCILER: Addy Collado, PhD CLINICAL PRESENTATION: The patient is a 58-year-old female admitted to the [facility] Rehab Unit for a comprehensive inpatient rehabilitation program. She sustained a fall on 02/26/2019 in which she was admitted through the Emergency Room to the [facility]. She had a displaced left femoral intertrochanteric fracture. The patient reported that her fall occurred when she was trying to walk upstairs with her hands full of laundry when she fell backward down approximately 2 flights of stairs. Her medical history includes a bowel surgery with an ostomy takedown and 2 prior cardiac arrests. Her assessment on admission to [facility] is a left hip intertrochanteric fracture, status post intramedullary nail on 02/28/2019 with weightbearing as tolerated, carotid stenosis, partial small bowel obstruction with prior bowel surgery, colostomy and takedown, history of seizure disorder, hypertension, hypothyroidism, past history of cardiac arrest x 2 and tobacco/alcohol abuse in her past. The patient was living with her in their home. 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 The patient has 2 children. She describes having an unsteady gait. Prior to this most recent admission, she had been sedentary at home. She has a supportive . The patient is described as having been independent with instrumental activities of daily living. Although, her has been setting up her medication. Her described the seizure disorder as a consequence of dehydration. There is no reported history of anxiety or depression. Her most recent seizure was 15 days ago, which was described as related to metabolic issues associated with dehydration. The seizure in November 2014 was in the hospital following a bowel surgery. TECHNIQUES UTILIZED: Clinical interview, review of medical records, staff consultation and behavioral observation, mini mental status exam 2 standard version, clock drawing and letter category fluency assessment. [address] [address] CONSULTATION Name: ALLAN PRYOR Room #: 504-1 [facility] IN ..#: [id number] Admission: 03/03/19 ������������������ Attend Phys: Dimitrios Reno MD Discharge: ������������������ Date of : 56 Report #: [id number] EXAMINATION FINDINGS: The patient was alert and cooperative with the assessment. She accurately described events surrounding her admission. There is no evidence of aphasia. She does not report auditory or visual hallucinations. Her response speed was slow. She was talkative and tangential during the interview. Reduced thought organization is suggested. She describes her symptoms to include sleep disturbance, anxiety and depression. She does not report a change in appetite. Performance on the MMSE 2 brief version was a raw score of 13 and 16, T score of 30 and percentile rank of 2, which is in the borderline range. Her performance on the MMSE 2 standard version was 26/30, which is a T score of 39 and percentile rank of 14. Her letter fluency was within normal limits with a raw score of 36 and a T score of 54, which is at the 66th percentile. Estimated category fluency based on animal fluency was a T score of 52 and percentile rank of 58, which is within normal limits. Clock drawing is within normal limits. She had some difficulty with visual spatial construction and a slight tremor during the constructive tasks. The patient is presenting with subtle to mild variability in cognition. She reports difficulty with word finding and short-term memory. DIAGNOSTIC IMPRESSION: Unspecified anxiety disorder with depression. Subtle to mild neurocognitive disorder -- likely due to medical etiology without behavioral disorder. RECOMMENDATIONS: The patient may benefit from the use of relaxation strategies to assist in the management of anxiety. Brief psychological services to assist in adjustment may be of benefit to improve mood and lower her feelings of anxiety. Reassurance during her recovery and rehab. program will also lower concerns about recovery. Followup neuropsychological assessment may be of benefit as she is likely to have had a concussion from her fall. Additionally, previous cardiac arrest can result in hypoxia and contribute to difficulty in memory. Thank you very much for allowing me to provide the consultation on this patient. ��������������������������������������������� <ELECTRONICALLY SIGNED> ���������������������������������������� By: Addy Collado, PhD ��������������������������������������������� 03/06/19 1551 1740 0212 Addy Collado, PhD /nt
[2019-03-06 20:18] VITALS: BP 133/88
--- NOTE | 2019-03-06 21:57 | NUR ---
ASSUMED CARE OF PT AT 0715. PT A&OX4 AND VITAL SIGNS STABLE. PT PARTICIPATED IN SCHEDULED THERAPIES PAIN MANAGED WITH ORAL MEDICATIONS. AT END OF SHIFT PT REPORTED TO NURSE THAT SHE IS HAVING INCREASED PAIN IN HER LEFT HIP AND FEELS LIKE THE BONE AT HER HIP FEELS UNSTABLE AND THAT "BONE IS RUBBING ON BONE". NIGHT NURSE STATED THAT SHE WOULD CALL FOR NEW ORDERS, AND THIS NURSE INSTRUCTED PATIENT THAT UNTIL NEW ORDERS WERE RECEIVED TO INITIATE TOTAL HIP PRECAUTIONS AND NON-WEIGHT BEARING TO THE AFFECTED HIP. PATIENT AREED TO PRECAUTIONS. FALL PRECAUTIONS IN PLACE AND NURSING WILL CONTINUE TO MONITOR.
--- NOTE | 2019-03-07 03:11 | NUR ---
PT ASSESSMENT COMPLETED AND VSS. MEDS GIVEN ORDERED AND WELL TOLERATED. PT C/O OF INCREASED PAIN. ALSO, SHE FEELS LIKE MAYBE THERE IS A PROBLEM WITH HER LEFT HIP. SHE DESCRIBES FEELING BONE RUBING AGAINST BONE WITH INCREASED PAIN. CONTACTED BELT BUCKLE MAKER JENNIFER. PER ORDERS WILL KEEP PT ON BEDREST TONIGHT AND USE THE BEDPAN. ALSO RECEIVED AN ORDER FOR INCREASE IN PAIN MEDICATION AND SLEEP MEDICATION. WORKING WELL. PT HAS HAD FREQUENCY OVER THE PAST COUPLE OF DAYS. UA NEGATIVE. PT VOIDING LARGE AMOUNTS OF CYU EACH TIME SHE VOIDS. PT IS SLEEPING WELL AT THIS TIME. WILL CONTINUE TO MONITOR.
[2019-03-07 07:30] VITALS: BP 117/67
--- NOTE | 2019-03-07 12:37 | NUR ---
ASSUMED CARES AT 0700. PT SLEEPY, ALERT AND ORIENTED*4. C/O LEFT HIP PAIN 11/14, REFUSED PAIN MEDICATION AT THIS TIME. STATED THAT SHE FELT LIKE SHE HAD A NEW FRACTURE ON LEFT LE, XRAY DONE (NO NEW FX). BRUISING NOTED ON LEFT INNER THIGH. DRESSING ON LEFT THIGH REMAIN DRY AND INTACT. WEIGHT BEARING ON EXTREMITY TOLERATED. ALL VITALS REMAIN STABLE. PT UP WITH 1 MIN ASSIST AND TOLERATED WELL. Q1H VISUAL CHECKS. CALL LIGHT WITHIN REACH. FALL PRECAUTIONS IN PLACE
[2019-03-07 21:25] VITALS: BP 123/67
--- NOTE | 2019-03-08 03:16 | NUR ---
ASSUMED PT CARE AT 1900. PT ASSESSMENT COMPLETED AND VSS. C/O LEFT HIP PAIN 06/16, GAVE PRN OXYCODONE AND PRN TYLENOL SINCE PT EXTREMELY IN PAIN AND WAS CRYING. MEDS GIVEN ORDERED AND WELL TOLERATED. REPORTED HAD 4 LOOSE STOOLS DURING DAY AND REQUESTS TO HOLD SCHEDULE LAXATIVE. FALL PRECAUTIONS IN PLACE. CALL LIGHT WITHIN REACH. UP TO THE BSC WITH ASST/GAIT/WALKER AT NIGHT DUE TO URGENCY . DSG ON L HIP X 2 DRY AND INTACT. SLEEPING AND PAIN MEDICATION WORKING WELL. STILL SLEEPING SOUNDLY AT THIS MOMENT. WILL CONTINUE TO MONITOR FREQUENTLY.
[2019-03-08 06:11] LABS: HEMATOCRIT 25.4 % (37.0-47.0); HEMOGLOBIN 8.7 gm/dL (12.0-15.0); MCHC 34.4 g/dL (28.0-37.0); MCV 104.6 fL (80.0-100.0); PLATELET COUNT 482 thou/uL (150-400); RBC 2.43 mil/uL (4.20-5.00); RDW 13.1 % (10.5-14.5); WBC 5.2 thou/uL (4.0-11.0)
[2019-03-08 06:40] LABS: CALCIUM 9.6 mg/dL (8.5-10.1); CREATININE 0.7 mg/dL (0.6-1.0); MAGNESIUM 1.6 mg/dL (1.8-2.4); POTASSIUM 4.2 mmol/L (3.5-5.1)
[2019-03-08 06:41] LABS: ABSOLUTE NEUTROPHILS 2.9 thou/uL (1.4-8.2); POIKILOCYTOSIS 1+; POLYCHROMASIA 1+; SCHISTOCYTES 1+
[2019-03-08 06:42] LABS: MACROCYTES 1+
[2019-03-08 07:04] VITALS: BP 121/78
--- NOTE | 2019-03-08 12:42 | NUR ---
team meeting, recommendation : dc home with hh ( pt, ot, nursing,) 5th. no dme needs, has walker already.
--- NOTE | 2019-03-08 13:22 | NUR ---
Nutrition: no new wt since last assessment. Folic acid, thiamine, MVI, statin and other meds reviewed. Last albumin from 2 weeks ago was WNL. Recent intake appears fair-good with avg of 73%. Pt reports she does not like the Magic Cup due to the texture, will discontinue, also dislikes Ensure. Per notes, plan for discharge on the . Rec honor food preferences and offer snacks for dereased meal intake. Assessed at mild nutrtion risk.
[2019-03-08 19:10] VITALS: BP 122/90
--- NOTE | 2019-03-09 01:40 | NUR ---
PT ASSESSMENT COMPLETED AND VSS. MEDS GIVEN ORDERED AND WELL TOLERATED. FALL PRECAUTIONS IN PLACE. UP TO THE BATHROOM WITH ASST/GAIT/WALKER. PRN PAIN MEDICATION WORKING WELL. DSGS ON LEFT HIP DRY AND INTACT. SLEEPING WELL. WILL CONTINUE TO MONITOR FREQUENTLY.
[2019-03-09 07:35] VITALS: BP 132/93
[2019-03-09 09:00] VITALS: BP 110/76
--- NOTE | 2019-03-09 10:53 | NUR ---
cm visited with pt rt rosalinda and no [facility] for hh. pt stated " do not know any other hh please call [facility]"/cheri. cm called spoke with [facility]. [place] provided in net work with rosalinda " [facility] is fine i heard of them"/[facility]. referral to be sent to [facility] ( pt, ot, nursing ). anticipate dc on , will provide transportation home. cm spoke with alycia with [facility] and is going to visit pt prior to dc on dcp: home with [facility] ( pt , ot, nursing); bedside nurse to fax dc orders to [facility] - fax # [phone], if need to call [facility] # [phone]
[2019-03-09 12:08] VITALS: BP 110/76
--- NOTE | 2019-03-09 13:12 | NUR ---
ASSUMED CARES AT 0700. PT AWAKE, ALERT AND ORIENTED*4. C/O PAIN LEFT HIP, PAIN MEDICATION ADMINISTERED NEEDED. VITALS REMAIN STABLE. CONTINUES TO HAVE BRUISING ON HIS INNER LEFT THIGH. INCISION ON HIP LEFT REMAIN DRY AND INTACT, DRESSING CHANGED AFTER SHOWER THIS AM. PT UP WITH 1 CONTACT GUARD, AMBULATED WITH GAITBELT AND WALKER AND TOLERATED WELL. Q1H VISUAL CHECKS. CALL LIGHT WITHIN REACH. FALL PRECAUTIONS IN PLACE
--- NOTE | 2019-03-09 13:47 | NUR ---
DISCHARGE PLANNING. ANTICIPATED DISCHARGE TO HOME WITH HOME HEALTH SERVICES. REFERRAL FAXED TO [facility]. CALL RECEIVED FROM KRISTINE SERRATO MOLDING MANAGER. ROJELIO STATES KRISTINE CAN ACCEPT PATIENT CLINICALLY. ROJELIO WILL NEED HOME HEALTH DISCHARGE ORDERS FAXED TO HER IN ORDER TO SUBMIT FOR INSURANCE AUTH THROUGH [facility] AND AUTH PROCESS CAN TAKE ANYWHERE FROM 7 TO 10 DAYS. UNIT CM NOTIFIED.
[2019-03-09 19:05] VITALS: BP 141/89
--- NOTE | 2019-03-10 01:46 | NUR ---
assumed care at approx 1900 evening 03/09. pt lying in bed at change of shift with head of bed elevated. pt alert and oriented x4, appropriate and cooperataive. pt requested snack at hs stating she was hungry. pt ate sandwich and fruit. pt took hs meds with water tolerating well. pt appears to be sleeping soundly with hourly rounding checks. bed alarm on, call light in reach. will continue to monitor.
[2019-03-10 07:45] VITALS: BP 133/87
--- NOTE | 2019-03-10 20:00 | NUR ---
ASSUMED CARE OF PT AT 0715. PT IS A&OX4, VITAL SIGNS ARE STABLE. PT REPOPRTS PAIN AND WAS TREATED AND MANAGED WITH PO MEDICAITONS, PARTICIPATED IN SCHEDULED THERAPIES. PLANS FOR D/C 03/11. PATIENT TRANSFERS AND AMBULATES WITH STANDBY ASSISTANCE WITH GAIT BELT AND WALKER. DRESSINGS TO LLE AT SURGICAL SITES C/D/I. SEIZURE PRECAUTIONS (HX OF SEIZURES) AND FALL PRECAUTIONS IN PLACE AND NURSING WILL CONTINUE TO MONITOR.
[2019-03-10 21:41] VITALS: BP 146/87
[2019-03-10 23:00] VITALS: BP 152/65
--- NOTE | 2019-03-11 01:44 | NUR ---
PT ASSESSMENT COMPLETED AND VSS. MEDS GIVEN ORDERED AND WELL TOLERATED. FALL PRECAUTIONS IN PLACE. UP TO THE BATHROOM WITH ASST/GAIT/WALKER - STEADY. PRN PAIN MEDICATION HELPFUL. DSG ON L HIP DRY AND INTACT. SLEEPING WELL. WILL CONTINUE TO MONITOR FREQUENTLY.
[2019-03-11 07:20] VITALS: BP 117/78
[2019-03-11 09:31] VITALS: BP 117/78
[2019-03-11] MEDS ORDERED: CYCLOBENZAPRINE5 MG PO (09:48)
[2019-03-11] MEDS ORDERED: OXYCODONE HCL 55 MG PO (09:48)
[2019-03-11] MEDS ORDERED: ACETAMINOPHEN325 M1 PO (09:49)
--- NOTE | 2019-03-11 10:00 | NUR ---
ASSUMED CARES AT 0700. REPORTS SLEPT GOOD LAST NIGHT. PT AWAKE, ALERT AND ORIENTEDX4. ABLE TO VOICE HER NEEDS. C/O PAIN LEFT HIP, RATES PAIN AT 9/10, PAIN MEDICATION ADMINISTERED NEEDED. VITALS REMAIN STABLE ON RA BRUISING ON HIS INNER LEFT THIGH IS FADING. INCISION ON HIP LEFT REMAIN DRY AND INTACT, DRESSING CHANGED, INCISION HEALING WELL AND PT WILL FOLLOW UP WITH [facility] WITHIN 1 WEEK AFTER DISCHARGE TO REMOVE SUTURES. PT UP WITH 1 CONTACT GUARD, AMBULATED WITH GAITBELT AND WALKER AND TOLERATED WELL. OFFERED SUPPORTIVE CARE. ENCOURAGED PT TO VOICE HER NEEDS. ASSISTED TO BATHROOM. HAD BM THIS AM. PT ABLE TO WASHED UP AND PUT CLOTHES ON WITH SUPER[employer]ION AND MIN HELP. PT D/C HOME WITH HH TODAY. Q1H VISUAL CHECKS. CALL LIGHT WITHIN REACH. FALL PRECAUTIONS IN PLACE.
--- NOTE | 2019-03-11 10:01 | H ---
[facility] [place] [address] HISTORY AND PHYSICAL Name: ALLAN PRYOR Room #: 504-1 ADM IN M.R.#: [id number] Admission: 03/03/19 ������������������ Attend Phys: Dimitrios Reno MD Discharge: ������������������ Date of : 56 Report #: [id number] THIS REPORT FOR: //name// CC: Dimitrios Reno Physician staff DONNIE PETERSEN DATE OF SERVICE: 03/04/2019 HISTORY AND PHYSICAL/POSTADMISSION PHYSICIAN EVALUATION HISTORY OF PRESENT ILLNESS: The patient is a 58-year-old white female who has multiple premorbid medical issues who apparently missed a step while she was going up the steps. She had a fall 02/26/2019 was admitted to [facility]. CT image revealed comminuted mildly displaced left femoral intertrochanteric fracture. She was cleared by Cardiology prior to surgery and underwent left intramedullary implant on 02/28/2019 and is allowed weightbearing as tolerated. The patient during the workup did undergo a CTA showing complete occlusion of the left common carotid artery. She has proximal 50% luminal narrowing in the region of the distal right common carotid artery. Cardiology has been following. Apparently recommendation was to hold aspirin 325 for 12 weeks. Cardiology has been consulted. The patient was progressing in therapies at [facility] and felt to be ready for admission for acute in-hospital inpatient rehabilitation. She is to continue the Lovenox for DVT prophylaxis as is ordered. PAST MEDICAL HISTORY: Includes a prior history of bowel surgery with subsequent ostomy takedown with cardiac arrest x 2. PAST SURGICAL HISTORY: Diverticulitis, encephalopathy, seizures, portal hypertensive gastropathy, partial small-bowel obstruction, malnutrition. ALLERGIES: BEE STING AND MORPHINE. MEDICATIONS: Please see the full medication listing. This includes vitamins, herbals, and supplements. SOCIAL HISTORY: She lives with her , cyril. There are 3-5 steps to get in. She can stay on the lower level, although there is no bedroom there, but there is apparently a comfortable couch that she could sleep on. She has the kitchen on that level. Her is retired and there is a son that lives there as well that can assist. REVIEW OF SYSTEMS: Did not offer any current complaints of chest pain, shortness of breath or abdominal discomfort. [address] [address] HISTORY AND PHYSICAL Name: ALLAN PRYOR Room #: 504-1 ADM IN [facility]#: [id number] Admission: 03/03/19 ������������������ Attend Phys: Dimitrios Reno MD Discharge: ������������������ Date of : 56 Report #: [id number] Past history also includes a note of some tobacco and alcohol abuse. PHYSICAL EXAMINATION: GENERAL: The patient is a thin 58-year-old white female, pleasant, in no obvious distress. VITAL SIGNS: Last recorded temperature 36.8, pulse 87, respirations 20, blood pressure 121/90. She is alert. Facies appeared symmetric. HEENT: Appeared to be benign. CHEST: Sounded clear to auscultation. CARDIOVASCULAR: Regular rate and rhythm. ABDOMEN: She has the old incisions from her abdominal surgery, which appear well healed. Soft, nontender. Bowel sounds positive. GENITOURINARY AND RECTAL: Deferred. EXTREMITIES: She has functional range of motion of both upper extremities. Strength appears to be grade 4+/5, right lower extremity functional range of motion with strength grade 4+/5, left lower extremity, her hip incisions are dressed, appeared dry. There is no calf swelling. She can dorsiflex her left ankle. She has been min assist with basic transfers and short distance functional mobility. ASSESSMENT: A 58-year-old white female with the following problems: 1. Left hip intertrochanteric fracture status post intramedullary nail. On 02/28/2019 [facility] allowed weightbearing as tolerated. 2. Carotid stenosis. Question regarding aspirin and statin. Cardiology assisting. 3. Partial small-bowel obstruction with prior bowel surgery, colostomy and takedown. 4. History of seizure disorder. 5. Hypertension. 6. Hypothyroidism. 7. Past history of cardiac arrest x 2. 8. Tobacco/alcohol abuse in the past. PLAN: The patient is admitted for acute in-hospital inpatient rehabilitation. From a postadmission physician evaluation perspective, there are no relevant changes since the preadmission screening. Please see the above review of prior and current medical and functional conditions and comorbidities. Please see the patient's previous and current functional status. As far as prior functional level. she was ambulatory and did not use gait aids, but it sounds like she may have done some furniture walking. As far as risk of complications includes the multiple comorbidities as noted above. Initial plan of care involves the interdisciplinary acute inpatient rehabilitation program. As far as measurable functional goals, the goal is to be modified independent with transfers, mobility and ADLs with appropriate gait aids, so she can return back to the home setting. Prognosis is reasonably good with estimated length of stay probably at least 5-10 days. Potential barriers would include the [facility] [address] [place] [address] HISTORY AND PHYSICAL Name: ALLAN PRYOR Room #: 504-1 ADM IN M.R.#: [id number] Admission: 03/03/19 ������������������ Attend Phys: Dimitrios Reno MD Discharge: ������������������ Date of : 56 Report #: [id number] comorbidities and decreased functional status. The patient meets diagnostic criteria for an acute in-hospital inpatient rehabilitation stay. She meets the medical necessity criteria. We will have the consult physicians continue to follow. She does have the tolerance for therapies and has appropriate discharge goals back to the home setting. ADDENDUM: The patient is on Lovenox for DVT prophylaxis. ��������������������������������������������� <ELECTRONICALLY SIGNED> ���������������������������������������� By: Dimitrios Reno MD ��������������������������������������������� 03/11/19 1001 0816 0842 Dimitrios Reno MD /nt
== END 2019-03-11 13:55 | disposition home health service (06) | DRG 536 ==
LOC: ENTRNSPT 03-11 12:37
PROVIDERS: Hospitalist; Nurse Practitioner; ADMIT Physical Medicine & Rehabilitation
DX: S72.142A Displaced intertrochanteric fracture of left femur, initial encounter for closed fracture (principal); K56.600 Partial intestinal obstruction, unspecified as to cause; I42.9 Cardiomyopathy, unspecified; I65.22 Occlusion and stenosis of left carotid artery; G40.909 Epilepsy, unspecified, not intractable, without status epilepticus; I10 Essential (primary) hypertension; R26.9 Unspecified abnormalities of gait and mobility; G31.84 Mild cognitive impairment of uncertain or unknown etiology; W18.39XA Other fall on same level, initial encounter; E03.9 Hypothyroidism, unspecified; Y93.89 Activity, other specified; Y92.89 Other specified places as the place of occurrence of the external cause; Y99.8 Other external cause status; Z86.74 Personal history of sudden cardiac arrest; Z91.030 Bee allergy status; Z88.6 Allergy status to analgesic agent
CPT/HCPCS: 10112

== ENCOUNTER → 2019-06-13 | Outpatient (CLI) | payer OTHER ==
[~2019-06-13] MED LIST changes: +ACETAMINOPHEN325 M1 PO; +AMITRIPTYLINE H10 M3 PO; +CYCLOBENZAPRINE5 MG PO; +FOLIC ACID1 MG PO; +LIDODERM1 EACH TRANSDERM; +MILK OF MA2400 MG/11 PO; +NEURONTIN300 MG PO; +NEURONTIN600 MG PO; +OXYCODONE HCL 55 MG PO; +OXYCODONE HCL10 MG PO; +OXYCODONE HCL15 MG PO; +SENOKOT-S1 TA2 PO; +ZOLOFT50 MG PO
== END ==
LOC: NUC 07:45
DX: I42.9 Cardiomyopathy, unspecified (principal); E78.5 Hyperlipidemia, unspecified; I10 Essential (primary) hypertension; F17.200 Nicotine dependence, unspecified, uncomplicated

== ENCOUNTER 2019-08-08 18:18 | Inpatient (IN) | payer OTHER ==
[~2019-08-08] VITALS: Ht 160 cm; Wt 49.8 kg
[2019-08-08 18:19] VITALS: BP 157/109
[2019-08-08 18:40] LABS: ABSOLUTE NEUTROPHILS 4.1 thou/uL (1.4-8.2); BASOPHILS 0.2 % (0.0-2.0); EOSINOPHILS 0.1 % (0.0-3.0); HEMATOCRIT 34.6 % (37.0-47.0); HEMOGLOBIN 11.7 gm/dL (12.0-15.0); LYMPHOCYTES 7.2 % (24.0-44.0); MCH 36.1 pg (26.0-34.0); MCHC 33.7 g/dL (28.0-37.0); MCV 106.9 fL (80.0-100.0); MONOCYTES 6.3 % (1.0-8.0); PLATELET COUNT 137 thou/uL (150-400); POLYS 86.2 % (36.0-66.0); RBC 3.24 mil/uL (4.20-5.00); RDW 14.5 % (10.5-14.5); WBC 4.8 thou/uL (4.0-11.0)
[2019-08-08 18:50] LABS: ANION GAP 14 mmol/L (7-16); BUN 8 mg/dL (7-18); CALCIUM 9.4 mg/dL (8.5-10.1); CHLORIDE 98 mmol/L (98-107); CO2 28 mmol/L (21-32); CREATININE 0.7 mg/dL (0.6-1.0); GLUCOSE 109 mg/dL (74-106); SODIUM 140 mmol/L (136-145)
[2019-08-08 18:59] LABS: ALBUMIN 3.7 g/dL (3.4-5.0); PHOSPHORUS 3.3 mg/dL (2.5-4.9); SGOT 79 U/L (15-37); SGPT 30 U/L (30-65); TOTAL BILIRUBIN 0.7 mg/dL (<0.1-1.0); TOTAL PROTEIN 7.8 g/dL (6.4-8.2); TROPONIN-I <0.06 ng/mL (<0.06)
[2019-08-08 19:03] LABS: MAGNESIUM 0.9 mg/dL (1.8-2.4)
[2019-08-08 19:14] LABS: URINE BILIRUBIN NEGATIVE (Negative); URINE BLOOD NEGATIVE (Negative); URINE CLARITY CLEAR; URINE COLOR YELLOW; URINE GLUCOSE-RANDOM* NEGATIVE (Negative); URINE KETONES NEGATIVE (Negative); URINE LEUKOCYTES-REFLEX NEGATIVE (Negative); URINE NITRITE-REFLEX NEGATIVE (Negative); URINE PROTEIN (DIPSTICK) NEGATIVE (Negative); URINE UROBILINOGEN 0.2 E.U./dl (0.2-1.0)
[2019-08-08 19:20] LABS: MACROCYTES 1+
[2019-08-08 19:21] LABS: AMP/METHAMP Negative (Negative); BARBITURATES Negative (Negative); BENZODIAZEPINES Negative (Negative); COCAINE Negative (Negative); METHADONE Negative (Negative); OPIATES Negative (Negative); PCP Negative (Negative)
[2019-08-08] MEDS ORDERED: ROBAXIN 750 MG750 MG PO (20:02)
[2019-08-08] MEDS ORDERED: CALCIUM500 MG PO (20:02)
[2019-08-08] MEDS ORDERED: ONDANSETRON ODT4 MG PO (20:03)
[2019-08-08] MEDS ORDERED: OMEPRAZOLE 20 M20 M1 PO (20:03)
[2019-08-08] MEDS ORDERED: PROAIR HFA8.5 GM INH (20:04)
[2019-08-08] MEDS ORDERED: VITAMIN B-1100 M2 PO (20:05)
[2019-08-08] MEDS ORDERED: VITAMIN B-121000 MC2 SUBLING (20:06)
[2019-08-08 20:15] VITALS: BP 158/104
--- NOTE | 2019-08-08 20:16 | NUR ---
HANDOFF TOOL PRINTED TO CCU AT THIS TIME.
--- NOTE | 2019-08-08 20:38 | NUR ---
FIRST ATTEMPT TO CALL REPORT. CCU TO RETURN CALL
--- NOTE | 2019-08-08 20:52 | NUR ---
REPORT GIVEN TO CCU NURSE KURT AT THIS TIME. NURSE STATED SHE HAD NO FURTHER QUESTIONS.
[2019-08-08 20:55] VITALS: BP 175/144
[2019-08-08 21:36] VITALS: BP 153/94
[2019-08-08 22:12] LABS: FOLIC ACID 63.6 ng/mL (8.6-58.9)
[2019-08-08] MEDS ORDERED: PHENERGAN 25 MG25 MG PO (22:58)
[2019-08-08] MEDS ORDERED: METHOCARBAMOL750 MG PO (23:13)
[2019-08-09 00:33] VITALS: BP 133/91
[2019-08-09 00:51] LABS: MAGNESIUM 1.4 mg/dL (1.8-2.4)
[2019-08-09 01:04] LABS: POTASSIUM 2.8 mmol/L (3.5-5.1)
--- NOTE | 2019-08-09 05:33 | NUR ---
PT IS AN ER ADMIT WHO CAME TO THE FLOOR WITH SEIZURES. SPOUSE AT BEDSIDE. PT IS STABLE. SEIZURE PRECAUTION IN PLACE. ADMISSION ASSESSMENT AND EDUCATION COMPLETED. PT IS ALERT AND ORIENTED WITH NO SIGN OF DISTRESS NOTED. SKIN IS INTACT, FALL PRECAUTION IN PLACE. PT IS SEEN BY WINDOW SYSTEMS ADMINISTRATOR. PAIN MED ADMINISTERED FOR PAIN TO LEFT HIP. CONTINUE TO MONITOR PATIENT. DENIES ANY FURTHER NEEDS AT THIS TIME.
[2019-08-09 05:40] VITALS: BP 128/98
[2019-08-09 08:07] VITALS: BP 160/110
--- NOTE | 2019-08-09 08:40 | EKG ---
[address] [place] [address] ELECTROCARDIOGRAM REPORT Name: ALLAN PRYOR Room #: 216-P [facility] IN .R.#: [id number] Admission: 08/08/19 Attend Phys: Giorgio Cleveland MD Discharge: Date of : 56 Report #: [id number] THIS REPORT FOR: //name// [facility] ED Test Date: 2019-08-08 Test Time: 18:38:53 Pat Name: ALLAN PRYOR Department: Room: [facility] Gender: F Athletic Gear Custodian: REBA : 1960 Requested By: Bladimir Park Order Number: [id number] MD: Nelson Nieto Measurements Intervals [place] Rate: 112 P: 56 [place]: 167 QRS: 23 QRSD: 86 T: 13 QT: 362 QTc: 494 Interpretive Statements Sinus tachycardia RSR' in V1 or V2, probably normal variant Borderline prolonged QT interval Baseline wander in lead(s) V2 Compared to ECG 02/18/2019 18:17:38 RSR' in V1 or V2 now present Sinus rhythm no longer present Electronically Signed On 08-09-2019 8:39:57 PAPER COATING SUPERVISOR by Nelson Nieto [email or web address] <ELECTRONICALLY SIGNED> By: Nelson Nieto MD 08/09/19 0839 37 37 Nelson Nieto MD /EPI
[2019-08-09 08:41] LABS: MAGNESIUM 2.4 mg/dL (1.8-2.4)
[2019-08-09 08:53] LABS: POTASSIUM 2.7 mmol/L (3.5-5.1)
[2019-08-09 11:46] VITALS: BP 142/101
[2019-08-09 17:07] VITALS: BP 132/91
--- NOTE | 2019-08-09 19:05 | NUR ---
ASSUMED CARE 0700. ALERT X4, ST ON TELE, STAND BY ASSIST. SEIZURE PRECAUTIONS IN PLACE. CALLS FOR ASSISTANCE CAN BE IMPULSIVE. FALL PRECAUTIONS REMAIN IN PLACE.
[2019-08-09 19:07] VITALS: BP 139/99
--- NOTE | 2019-08-10 05:22 | NUR ---
ASSUMED PT CARE AT 1900. SPOUSE AT BEDSIDE. AT THE BEGINNING OF SHIFT, PT WWAS BECOMING IRRIATBLE AND AGITATED. SHE STATED SHE WANTS TO GO OUTSIDE AND SMOKE. RN COMMUNICATED WITH PATIENT THAT SHE CANT GO OUTSIDE AND SMOKE. SHE HAD REQUESTED FOR A NICOTINE PATCH, WHUCH WASN'T DUE. PT HAD TAKEN OFF THE INITIAL NICTOTINE PATCH. PT BECAME MORE AGITATED AND IRRITABLE. SHE STATED SHE WANTED TO GO FOR A WALK. RN TOLD SPOUSE AND PATIENT SHE COULD ONLY WALK ON THE UNIT BUT SHE HAD LFET THE UNIT AND WAS OFF THE MONITOR. SECURITY WAS NOTIFIED AND PT WAS FOUND AND BROUGHT BACK TO UNIT. AGITATION INCREASED AND ATIVAN WAS ADMINISTERED. CIWA PROTOCOL WAS DONE AND HER SCORE WAS 9. IV ATIVAN ADMINISTERED AND MORE ATIVAN WAS GIVEN. PT WAS GOING TO BE RESTRAINED, SHE IS CONFUSED. HALDOL ORDERED AND ADMINISTERED TO PT. CONTINUE TO MONITOR PATIENT. SCHEDULED MEDS ADMINISTERED TO PT. FALL PRECAUTION IN PLACE. DENIES ANY FURTHER NEEDS AT THIS TIME.
[2019-08-10 06:53] LABS: CALCIUM 8.4 mg/dL (8.5-10.1); CREATININE 0.6 mg/dL (0.6-1.0); MAGNESIUM 1.3 mg/dL (1.8-2.4); PHOSPHORUS 3.2 mg/dL (2.5-4.9); POTASSIUM 4.4 mmol/L (3.5-5.1)
[2019-08-10 08:15] VITALS: BP 127/99
--- NOTE | 2019-08-10 08:34 | EKG ---
[address] [address] ELECTROCARDIOGRAM REPORT Name: ALLAN PRYOR Room #: 216- ADM IN M.R.#: [id number] Admission: 08/08/19 Attend Phys: Giorgio Cleveland MD Discharge: Date of : 56 Report #: [id number] THIS REPORT FOR: //name// Test Date: 2019-08-09 Test Time: 13:35:01 Pat Name: ALLAN PRYOR Department: Room: 216 Gender: F Piping Designer: Christine COLEY : 1960 Requested By: Giorgio Cleveland Order Number: [id number] MD: Nelson Nieto Measurements Intervals [place] Rate: 94 P: 51 UT: 137 QRS: 41 QRSD: 81 T: 42 QT: 384 QTc: 481 Interpretive Statements Sinus rhythm Compared to ECG 08/08/2019 18:38:53 Sinus tachycardia no longer present Electronically Signed On 08-10-2019 8:34:04 PROJECTION ENGINEER by Nelson Nieto [email or web address] <ELECTRONICALLY SIGNED> By: Nelson Nieto MD 08/10/19 0834 1335 [id number] Nelson Nieto MD /TRAN
[2019-08-10 11:30] VITALS: BP 128/94
[2019-08-10] MEDS ORDERED: ZOLOFT50 M1 PO (13:44)
--- NOTE | 2019-08-10 16:47 | NUR ---
patient on ETOH protocol. Casemgt rec consult. Patient somulent, casemgt to visit with patient regarding tx options once more alert.
[2019-08-10 17:00] VITALS: BP 133/98
--- NOTE | 2019-08-10 17:11 | NUR ---
ASSUMED CARE 0700. REMAINS ON CIWA PROTOCAL PER ORDER. UP WITH ASSISTANCE TO COMMODE. POOR MEAL INTAKE. REMAINS ON ELECTROLYTE PROTOCOL. FALL PRECAUTIONS IN PLACE. CALL LIGHT IN REACH. VS WNL. NSR ON TELE.
[2019-08-10 19:16] VITALS: BP 139/96
[2019-08-11 00:20] VITALS: BP 132/94
[2019-08-11 04:55] VITALS: BP 134/87
--- NOTE | 2019-08-11 05:57 | NUR ---
ASSESSMENT DOCUMENTED.PT BEEN RESTING IN NO ACUTE DISTRESS.A/O AND VERY DROWSY.PT EASY TO AROUSE TO USE BATHROOM AND PARTICIPATE IN ADLS.PT WAS ABLE TO EAT GOOD AMOUNT OF FOOD LAST NOC.IVF INFUSING.MAGNESIUM WAS REPLACED PER ELYTES PROTOCOLS.REMAINS ON CIWR PER PROTOCOL REQUIRING LORAZEPAM.ON SEIZURE PRECAUTIONS.NO SPELLS OR SEIZURE EPISODES NOTED.NO CONCERNS AT THIS TIME.WILL CONT TO MONITOR PER POC.
[2019-08-11 09:40] VITALS: BP 132/88
--- NOTE | 2019-08-11 15:51 | NUR ---
Case opened to follow for dc planning needs. Senior Industrial Engineer visited with the pt and her spouse at bedside. Pt is a&ox4 today but having c/o double vision. Nursing advised and they report pt has a neuro consult ordered. Pt's spouse at bedside. Both report pt has been going to outpt therapy 2xwkly since her hip fx in the summer. 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 Pt's health insurance is through her spouse who is retired [employer]. She is anticipating resuming outpt therapy [place] vs . The pt has an old ostomy and is indep with cares. Pt has rwalker for home use and a railing on her stairs. Pt's spouse drives and denies any dc concerns. Both acknowledge daily ethol use but minimize anything beyond one drink. Ethol resources offered and pt receptive. Community resources for AA and mental health counseling noted on the pt's dc instructions. The pt has been seen by therapy this afternoon and they are supportive of the pt going to outpt therapy at [place] and advise use of her rwalker at all times for balance. No cm interventions indicated at this time. Will remain available should dc needs arise.
[2019-08-11 16:01] VITALS: BP 132/88
[2019-08-11 16:03] VITALS: BP 132/88
--- NOTE | 2019-08-11 17:39 | NUR ---
ASSESSMENT CHARTED. PT ALERT AND ORIENTED WITH FORGETFULNESS. VSS. REPORT HAVING DOUBLE VISION. DR. MAHER AND DR VELIZ NOTIFIED. ORDERS RECEIVED. UPDATED ON PT'S PROGRESS. ON CIWA AND SEIZURE PROTOCAL. WILL CONTINUE TO MONITOR.
[2019-08-11 19:33] VITALS: BP 133/87
[2019-08-12 04:30] VITALS: BP 127/86
--- NOTE | 2019-08-12 04:44 | NUR ---
PT APPEARS TO BE ASLEEP. PT SR ON MONITOR. PT REMAINS ON RA. REQUIRED 2 DOSES OF PAIN MEDS DURING SHIFT. UP TO BATHROOM MULTIPLE TIMES TO VOID.
[2019-08-12 08:00] VITALS: BP 107/71
[2019-08-12] MEDS ORDERED: NEURONTIN 300300 M1 PO (11:25)
[2019-08-12] MEDS ORDERED: TRAMADOL 50 MG50 MG PO (11:26)
[2019-08-12 12:00] VITALS: BP 121/79
[2019-08-12] MEDS ORDERED: [UNRECOGNIZED DRUG - REMARK] (14:14)
--- NOTE | 2019-08-12 14:39 | NUR ---
PT ALERT AND ORIENTED WITH FORGETFULNESS. VSS. RECEIVED PRN PAIN MED FOR LEFT HIP PAIN WITH PARTIAL RELIEF. SEEN BY DR. VELIZ AND DR. MAHER. ORDERS GIVEN TO DISCHARGE PT TO HOME WITH HOME HEALTH. DISCHARGE INSTRUCTIONS GIVEN TO PT AND THE . THEY VERBERLISED UNDERSTANDING. PT LEFT THE FACILITY ACCOMPANIED BY THE .
== END 2019-08-12 15:28 | disposition home health service (06) | DRG 100 ==
LOC: ER 18:18 → 2N 19:42 → EROBS 19:42 → 2N 20:56 → ENTRNSPT 08-12 14:37 → EDTRNSPTSTS 08-12 14:42 → 2N 08-12 15:28
PROVIDERS: Emergency Medicine; Nurse Practitioner Acute Care; ADMIT Hospitalist
DX: R56.9 Unspecified convulsions (principal); E43 Unspecified severe protein-calorie malnutrition; I42.9 Cardiomyopathy, unspecified; Z68.1 Body mass index [BMI] 19.9 or less, adult; I10 Essential (primary) hypertension; E87.6 Hypokalemia; E83.42 Hypomagnesemia; D53.9 Nutritional anemia, unspecified; F17.210 Nicotine dependence, cigarettes, uncomplicated; E03.9 Hypothyroidism, unspecified; G62.9 Polyneuropathy, unspecified; F10.10 Alcohol abuse, uncomplicated; R40.0 Somnolence; Z79.82 Long term (current) use of aspirin; Z93.3 Colostomy status; Z90.710 Acquired absence of both cervix and uterus; Z88.6 Allergy status to analgesic agent; Z82.49 Family history of ischemic heart disease and other diseases of the circulatory system; Z83.79 Family history of other diseases of the digestive system; Z71.6 Tobacco abuse counseling; Z79.899 Other long term (current) drug therapy
CPT/HCPCS: 10081

== ENCOUNTER 2020-03-02 12:00 | Inpatient (IN) | payer OTHER ==
[~2020-03-02] VITALS: Ht 160 cm; Wt 38.1 kg
--- NOTE | ~2020-03-02 | EKG ---
[facility] [place] [address] ELECTROCARDIOGRAM REPORT Name: ALLAN PRYOR Ivan Room #: 247-P ADM IN M.R.#: [id number] Admission: 03/02/20 Attend Phys: Esdras Kelly MD Discharge: Date of : 56 Report #: [id number] THIS REPORT FOR: cc: FAM - Family physician unknown FAM - Family physician unknown Bud Farrell MD ~ THIS REPORT FOR: //name// [facility] Test Date: 2020-03-06 Test Time: 08:23:33 Pat Name: ALLAN PRYOR Department: Room: [facility] Gender: F Digital Specialist: Vinh CORTEZ : 1960 Requested By: Aure Guerra Order Number: [id number] MD: Measurements Intervals [place] Rate: 97 P: 39 TN: 132 QRS: 43 QRSD: 70 T: -6 QT: 362 QTc: 460 Interpretive Statements Sinus rhythm Anteroseptal infarct, age indeterminate Compared to ECG 03/05/2020 23:35:16 Myocardial infarct finding now present [email or web address] By: 0823 2 Epiphany Epiphany, /EPI
--- NOTE | ~2020-03-02 | HC ---
[facility] [place] [address] CONSULTATION Name: ALLAN PRYOR Room #: 205-P ADM IN M.R.#: [id number] Admission: 03/02/20 Attend Phys: Esdras Kelly MD Discharge: Date of : 56 Report #: [id number] THIS REPORT FOR: cc: [facility] - Family physician unknown FAM - Family physician unknown Vivek Goodman MD ~ CC: DANIEL unknown Esdras Kelly DATE OF SERVICE: 03/23/2020 ENDOCRINE CONSULTATION NOTE CONSULTING PHYSICIAN: Dr. Cleveland. REASON FOR CONSULTATION: Hypothyroidism. HISTORY OF PRESENT ILLNESS: This is a 59-year-old female patient who presented originally on 03/02/2020 with complaints of progressive weakness, diminishing appetite, poor p.o. intake and weight loss, along with nausea and occasional vomiting. She was admitted for further care and monitoring and was found to have issues with malabsorption, malnutrition, and then ended up having a cardiopulmonary arrest and underwent a successful CPR, after which she was mechanically ventilated. During that time, she developed aspiration pneumonia and was ensured to be COVID-19 negative and had become encephalopathic and developed issues with metabolic acidosis as well. The patient has stabilized gradually and was successfully extubated on 03/20/2020. I am consulted due to uncontrolled hypothyroidism. The patient's who is available bedside indicated that the patient had hypothyroidism for decades and that she has been on a stable regimen of levothyroxine 88 mcg daily, which she maintains has been given to her consistently up until her presentation to the hospital. It appears that during the patient's critical illness which is the majority of her hospital stay here, she has not been able to receive levothyroxine. The patient at this point suffers significant expressive aphasia and is unable to give much information pertaining to her history of present illness. Levothyroxine 100 mcg daily was resumed earlier today. REVIEW OF SYSTEMS: CONSTITUTIONAL: Fatigue, tiredness, weight loss, diminishing appetite. HEENT: No sore throat, ear drainage or sinus pain. PULMONARY: Shortness of breath, recent issues with respiratory failure, mechanical ventilation, extubated on 03/20/2020, aspiration pneumonia resolved. CARDIAC: Cardiopulmonary arrest earlier during this hospital stay, dyspnea on exertion. No chest pain or palpitations. GASTROINTESTINAL: Intractable abdominal discomfort and nausea with occasional [facility] [address] [place] [address] CONSULTATION Name: ALLAN PRYOR Room #: [address] [place] [address] [place] ..#: [id number] Admission: 03/02/20 Attend Phys: Esdras Kelly MD Discharge: Date of : 56 Report #: [id number] vomiting, weight loss. NEUROLOGY: Generalized seizure disorder, polyneuropathy. PSYCHIATRY: Depression, anxiety. Otherwise, review of systems was noncontributory other than those mentioned in HPI. PAST MEDICAL HISTORY: 1. Hypothyroidism. 2. Respiratory failure in the context of pulseless electrical activity and cardiac arrest with mechanical ventilation, extubated on 03/20/2020. 3. Recent issues with aspiration pneumonia. 4. Cardiomyopathy. 5. History of alcohol abuse. 6. Severe malnutrition. 7. Hypertension. 8. Depression. 9. Peripheral neuropathy. 10. Generalized seizure disorder. 11. History of diverticulitis. 12. History of left hip fracture. 13. Anemia. 14. Malnutrition. PAST SURGICAL HISTORY: Noted for ventral hernial repair, bowel resection, reversal of colostomy, hysterectomy, rhinoplasty, thyroid lobectomy. OUTPATIENT MEDICATIONS: Phenergan 25 mg p.r.n., methocarbamol 750 mg p.o. t.i.d., carvedilol, Coreg 3.25 mg daily, levothyroxine 88 mcg daily, Ultram q.6 hours p.r.n., omeprazole 20 mg daily, albuterol 2 puffs q.4-6 hours p.r.n., vitamin B1 100 mg t.i.d., cyanocobalamin 1000 mcg sublingual daily, magnesium oxide 800 mg p.o. b.i.d., folic acid 1 mg daily. ALLERGIES: BEE STINGS AND MORPHINE. FAMILY HISTORY: Noncontributory. SOCIAL HISTORY: She is an everyday smoker. Drinks alcohol. PHYSICAL EXAMINATION: GENERAL: female patient who appears uncomfortable, confused, cachectic, but not in pain or distress. VITAL SIGNS: Blood pressure 131/89 mmHg, heart rate is 95 beats per minute, respiration 18 per minute, temperature 36.6 degrees Celsius. CONSTITUTIONAL: The patient is sitting upright in bed, appears uncomfortable. She is moaning indiscriminately, but does not appear to be in pain or distress. [address] [address] CONSULTATION Name: ALLAN PRYOR Room #: 205-P [facility] IN [facility].#: [id number] Admission: 03/02/20 Attend Phys: Esdras R. Hura, MD Discharge: Date of : 56 Report #: [id number] HEENT: Anicteric sclerae. Intact extraocular motions. NECK: Supple, without JVD. No thyromegaly. CHEST: Noted for moderate air entry with scattered rales. No wheezes or crackles. HEART: Regular rate and rhythm without murmurs or gallops. ABDOMEN: Soft, lax. No guarding. Active bowel sounds. EXTREMITIES: Lower extremity exam is negative for ankle edema. The patient has good pedal pulses bilaterally. NEUROLOGIC: Awake, alert, aphasic, moves both upper extremities spontaneously. PSYCHIATRIC: Seems a bit frustrated and upset, moans indiscriminately, nonverbal. LABORATORY RESULTS: Blood glucose values have ranged between 81 and 162 mg/dL, sodium 139, potassium 3.4, chloride 105, CO2 of 23, anion gap 11, BUN 12, creatinine 0.7, glucose 98, AST 22, lipase 214, total bilirubin 0.2, calcium 9.7, phosphorus 3.2, magnesium 2.7, alkaline phosphatase 130, ALT 13, total protein 5.9, albumin 2.0. EGFR 85. Ammonia 22. Lactic acid 2.8. Troponin is negative. Total cholesterol 213, triglycerides 106, HDL 106, LDL 93. Free T4 is 0.7. BNP 2491. INR 1.1. White blood count 6.6, hemoglobin 8.4, hematocrit 24.8, platelets 377. TSH 40.384. Hemoglobin A1c from 11/2014 was 5.2. ASSESSMENT AND PLAN: 1. Hypothyroidism. As noted per her current thyroid function indices, the patient has uncontrolled hypothyroidism. One could debate the adequacy of her dose to begin with. However, a few week long interruption of levothyroxine intake due to the significant medical events she had undergone had almost certainly contributed to this outlook. That said, I will resume the patient's levothyroxine therapy at this point in time, but at a slightly higher dose of levothyroxine 100 mcg daily. I discussed this change at length with her and I explained that further followup in the future would be necessary in 6-8 weeks to ensure the adequacy of this dose. 2. Hyperlipidemia. The patient is currently on atorvastatin therapy and tolerates it well, she is to continue with the same. 3. Hyperglycemia. The patient has had intermittent hyperglycemia that has been covered with a Humalog supplemental scale with mostly adequate control. The patient does not have a well-described history of type 2 diabetes mellitus. Her hemoglobin A1c was well within normal limits several years ago in 2015. I will check a current hemoglobin A1c to better ascertain her overall outlook here more recently. 4. Hypertension. The patient's level of blood pressure control is adequate, continue with the current regimen. I have reviewed the patient's clinical care notes, laboratory data, and other pertinent clinical information for over 35 minutes in addition to my interview with her and her . [address] [address] CONSULTATION Name: ALLAN PRYOR Room #: 205-P [facility] IN M.R.#: [id number] Admission: 03/02/20 Attend Phys: Esdras Kelly MD Discharge: Date of : 56 Report #: [id number] I appreciate this consultation by Dr. Cleveland. By: 1430 46 Vivek Goodman MD /nt
[2020-03-02 12:00] VITALS: BP 97/71
[~2020-03-02 12:00] MED LIST changes: +CALCIUM500 MG PO; +METHOCARBAMOL750 MG PO; +NEURONTIN 300300 M1 PO; +OMEPRAZOLE 20 M20 M1 PO; +ONDANSETRON ODT4 MG PO; +PHENERGAN 25 MG25 MG PO; +PROAIR HFA8.5 GM INH; +ROBAXIN 750 MG750 MG PO; +TRAMADOL 50 MG50 MG PO; +VITAMIN B-121000 MC2 SUBLING; +ZOLOFT50 M1 PO; +[UNRECOGNIZED DRUG - REMARK]
[2020-03-02 12:28] LABS: URINE BLOOD NEGATIVE (Negative); URINE CLARITY SL CLOUDY; URINE COLOR YELLOW; URINE GLUCOSE-RANDOM* NEGATIVE (Negative); URINE KETONES 3+ (Negative); URINE LEUKOCYTES-REFLEX NEGATIVE (Negative); URINE NITRITE-REFLEX NEGATIVE (Negative); URINE PROTEIN (DIPSTICK) 1+ (Negative)
[2020-03-02 12:35] LABS: URINE BILIRUBIN NEGATIVE (Negative)
[2020-03-02 12:36] LABS: ICTOTEST (BILI CONFIRMATORY) Negative (Negative)
[2020-03-02 12:47] LABS: HEMATOCRIT 37.2 % (37.0-47.0); HEMOGLOBIN 12.8 gm/dL (12.0-15.0); MCH 36.9 pg (26.0-34.0); MCHC 34.3 g/dL (28.0-37.0); MCV 107.6 fL (80.0-100.0); PLATELET COUNT 326 thou/uL (150-400); RBC 3.46 mil/uL (4.20-5.00); RDW 13.6 % (10.5-14.5); WBC 6.6 thou/uL (4.0-11.0)
[2020-03-02 12:56] LABS: ALBUMIN 3.2 g/dL (3.4-5.0); CALCIUM 9.4 mg/dL (8.5-10.1); TOTAL PROTEIN 6.8 g/dL (6.4-8.2)
[2020-03-02 12:58] LABS: POTASSIUM 2.1 mmol/L (3.5-5.1)
[2020-03-02 13:10] LABS: URINE REDUCING SUBSTANCE NEGATIVE
[2020-03-02 13:23] LABS: SQUAMOUS >10 Many /LPF (0-3)
[2020-03-02 13:24] LABS: CRYSTALS None Seen /LPF (None Seen); HYALINE CASTS 0-3 Few /LPF (None Seen); URINE RBC None Seen /HPF (0-2); URINE WBC-REFLEX 0-5 Rare /HPF (0-5)
[2020-03-02 13:25] LABS: BACTERIA-REFLEX 1-9 Few /HPF (None Seen)
[2020-03-02 13:50] LABS: ABSOLUTE NEUTROPHILS 5.2 thou/uL (1.4-8.2)
[2020-03-02 13:51] LABS: MACROCYTES 1+
[2020-03-02 14:00] LABS: CALCIUM 9.4 mg/dL (8.5-10.1); CREATININE 1.1 mg/dL (0.6-1.0)
[2020-03-02 14:10] LABS: POTASSIUM 1.8 mmol/L (3.5-5.1)
[2020-03-02] MEDS ORDERED: TRAMADOL 50 MG50 MG PO (14:26)
[2020-03-02] MEDS ORDERED: SENOKOT8.6 MG PO (14:27)
[2020-03-02 14:32] VITALS: BP 102/79
[2020-03-02 15:49] VITALS: BP 96/66
[2020-03-02] MEDS ORDERED: CARVEDILOL12.5 MG PO (16:57)
[2020-03-02 17:30] VITALS: BP 137/83
[2020-03-02 19:20] VITALS: BP 105/77
--- NOTE | 2020-03-02 19:39 | NUR ---
ASSUMED CARE AT 1600, PT TRANSFERRED FROM ED BY ED PROPERTY ADJUSTER. ASSESSMENT AND VITAL SIGNS COMPLETED PER CCU PROTOCOL. PT RESTING COMFORTABLY, CRITICAL LAB VALUES CALLED TO DR. NUR. RN WILL CONTINUE TO MONITOR AND FOLLOW PLAN OF CARE.
[2020-03-03] VITALS (7 sets, daily range): BP systolic 81–108; BP diastolic 54–73
[2020-03-03 04:18] LABS: HEMATOCRIT 28.9 % (37.0-47.0); MCH 36.8 pg (26.0-34.0); MCHC 34.4 g/dL (28.0-37.0); RBC 2.7 mil/uL (4.20-5.00); RDW 13.6 % (10.5-14.5); WBC 3.7 thou/uL (4.0-11.0)
[2020-03-03 04:20] LABS: HEMOGLOBIN 9.9 gm/dL (12.0-15.0)
[2020-03-03 04:36] LABS: ALBUMIN 2.1 g/dL (3.4-5.0); CREATININE 0.9 mg/dL (0.6-1.0); MAGNESIUM 2.1 mg/dL (1.8-2.4); TOTAL BILIRUBIN 0.5 mg/dL (0.2-1.0); TOTAL PROTEIN 5.1 g/dL (6.4-8.2)
[2020-03-03 04:41] LABS: CALCIUM 7.3 mg/dL (8.5-10.1); POTASSIUM 2.5 mmol/L (3.5-5.1)
--- NOTE | 2020-03-03 06:01 | NUR ---
ASSESSMENT DOCUMENTED.PT A/OX4.VSS.C/O PAIN MOSTLY TO LEFT HIP AND BUTTOCKS.PAIN MEDS GIVEN ORDERED.MANUFACTURERS AGENT ORDERED EXTRA MEDS FENTANYL AND TRAMADOL THAT ARE CONTROLLING PAIN PARTIALLY.PT DESCRIBES PAIN TO HIP THROBBING,SHARP PAIN,RATING PAIN AT 6-9/10 ON 0-10 PAIN SCALE.PT STATES PAIN IS CONSTANT,SHE ALSO STATED THAT SHE HAD APPOINTMENT AT TO F/U FOR INCREASING PAIN LATELY TO THAT HIP BUT THEY CANCELLED THE APPOINTMENT,H/O FX TO LEFT HIP ONE YEAR AGO.C/O NAUSEAX1 THAT WAS CONTROLLED WITH [facility]..CRITICAL POTASSIUM LEVEL AND CALCIUM CALLED IN TO JANELLE ARAIZA,ORDERS GIVEN,REPLACING POTASSIUM AT THIS TIME.WOUND TO BUTTOCK DRESSED WITH MEPILEX.PT DENIES NAY OTHER NEEDS AT THIS TIME.WILL CONT TO MONITOR PER POC.
[2020-03-03 06:46] LABS: AMP/METHAMP Negative (Negative); BARBITURATES Negative (Negative); BENZODIAZEPINES Negative (Negative); COCAINE Negative (Negative); METHADONE Negative (Negative); OPIATES Negative (Negative); PCP Negative (Negative)
--- NOTE | 2020-03-03 18:40 | NUR ---
ASSESSMENT DOCUMENTED. BP LOW. PT ASYMPTOMATIC. MRI FAX SHEET FILLED OUT AND SENT TO FAX NUMBER. PT RESTING IN BED WITH CALL LIGHT IN REACH. WILL CONTINUE TO MONITOR.
[2020-03-04 03:00] VITALS: BP 88/64
--- NOTE | 2020-03-04 04:42 | NUR ---
ASSUMED CARE OF PATIENT AT 1900. PATIENT C/O PAIN THROUGH NOC. OBTAINED ORDER FOR ROBAXIN PER PATIENT REQUEST IT IS A HOME MEDICATION. PATIENT STATES THAT IT HELPS WITH THE PAIN. AT 2317 PATIENT HAD AN EPISODE OF EXTREME TACHYCARDIA WITH A HR OF 186. PATIENT WAS FOUND REPOSITIONING HERSELF. PATIENT DENIES ANY CHEST PAIN OR SOA. PATIENT REPORTS IMPROVEMENT IN APPETITE AND REQUESTED A SANDWICH AT BEDTIME.
[2020-03-04 07:22] VITALS: BP 91/66
[2020-03-04 11:22] VITALS: BP 80/58
[2020-03-04 14:16] LABS: FOLIC ACID 8.6 ng/mL (8.6-58.9)
[2020-03-04 15:36] VITALS: BP 103/76
--- NOTE | 2020-03-04 16:33 | NUR ---
ASSESSMENT CHARTED. PT ALERT AND ORIENTED. HAD LOW BP THIS SHIFT. PROVIDER AWARE. PRN PAIN MED GIVEN WITH PARTIAL RELIEF. AT THE BEDSIDE. WILL CONTINUE TO MONITOR.
[2020-03-04 20:00] VITALS: BP 99/75
--- NOTE | 2020-03-05 03:16 | NUR ---
PT RESTING QUIETLY CALLS OUT FOR ASST TO BSC, PRN PAIN MEDS GIVEN FOR C/O L HIP PAIN, NPO SINCE MNOC FOR EGD, REPOSTIONS SELF IN BED, WILL CON'T TO MONITOR PER PPOC.
[2020-03-05 03:40] VITALS: BP 98/72
[2020-03-05 07:30] VITALS: BP 158/67; BP 97/63
[2020-03-05 09:10] LABS: HEMATOCRIT 31.5 % (37.0-47.0); HEMOGLOBIN 10.2 gm/dL (12.0-15.0); MCH 35.9 pg (26.0-34.0); MCHC 32.4 g/dL (28.0-37.0); MCV 110.7 fL (80.0-100.0); RBC 2.85 mil/uL (4.20-5.00); RDW 14.1 % (10.5-14.5); WBC 5.8 thou/uL (4.0-11.0)
[2020-03-05 11:45] VITALS: BP 103/68
--- NOTE | 2020-03-05 13:35 | NUR ---
met with patient and spouse at bedside. Patient admits with hypokalemia, weight loss, electrolyte imbalance. Patient resides at home with spouse. Patient with hx of ORIF left hip February 2019. Patient to have THR in November then COVID cancelled apt. Patient has a f/u apt for THR March 14 with orthopedic from . Spouse at bedside reports he highly doubts she will be strong enough for sx for hip. Due to delay patient has pain in left hip. She uses a walker at home. They have steps in home 8 steps, landing then 8 more steps. Patient reports she does steps using scooting up steps on bottom. Patient with medical hx of bowel sx and ostomy with reversal, cardiac arrest as well. Patient has been to 5n then transitioned to outpatient therapy. 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 [facility] following for dc planning.
[2020-03-05 16:45] VITALS: BP 100/58
--- NOTE | 2020-03-05 16:53 | NUR ---
ASSESSMENT CHARTED. PT ALERT AND ORIENTED. VSS. PRN PAIN MED AND MUSCLE RELAXER GIVEN FOR LEFT HIP PAIN. NPO AFTER MIDNIGHT FOR EGD IN AM. CONSENT SIGNED. WILL CONTINUE TO MONITOR.
[2020-03-05 20:40] VITALS: BP 113/93
--- NOTE | 2020-03-05 23:56 | NUR ---
pt transfered to icu post code, left message with spouse on cell and house phone, pt intubated and st per monitor, report given to staff.
[2020-03-06] VITALS (55 sets, daily range): BP systolic 80–154; BP diastolic 54–118
[2020-03-06 00:08] LABS: BE(vivo) -14.6 mmol/L (-2 to +3); HCO3 12.3 mmol/L (22.0-26.0); PCO2 32.3 mmHg (35.0-45.0); PO2 82.7 mmHg (80.0-100.0); sO2 93.9 % (92.0-98.0)
[2020-03-06 00:09] LABS: pH 7.197 (7.360-7.450)
[2020-03-06 00:44] LABS: HEMATOCRIT 35.2 % (37.0-47.0); HEMOGLOBIN 10.2 gm/dL (12.0-15.0); MCH 36.7 pg (26.0-34.0); MCHC 29.1 g/dL (28.0-37.0); RBC 2.79 mil/uL (4.20-5.00); RDW 16.1 % (10.5-14.5); WBC 13.6 thou/uL (4.0-11.0)
[2020-03-06 00:45] LABS: MCV 125.8 fL (80.0-100.0)
[2020-03-06 00:49] LABS: ALBUMIN 1.5 g/dL (3.4-5.0); CALCIUM 7.3 mg/dL (8.5-10.1); CREATININE 0.7 mg/dL (0.6-1.0); TOTAL BILIRUBIN 0.5 mg/dL (0.2-1.0); TOTAL PROTEIN 4.8 g/dL (6.4-8.2)
[2020-03-06 00:52] LABS: POTASSIUM 6.2 mmol/L (3.5-5.1)
[2020-03-06 03:34] LABS: BE(vivo) -3.2 mmol/L (-2 to +3); HCO3 18.4 mmol/L (22.0-26.0); PCO2 23.4 mmHg (35.0-45.0); PO2 105.3 mmHg (80.0-100.0); pH 7.514 (7.360-7.450); sO2 98.4 % (92.0-98.0)
--- NOTE | 2020-03-06 08:12 | EKG ---
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 : 1960 Requested By: Cece Greer Order Number: [id number] MD: Girish Yu Measurements Intervals [place] Rate: 123 P: 51 NM: 161 QRS: 87 QRSD: 88 T: 4 QT: 304 QTc: 435 Interpretive Statements Sinus tachycardia Borderline right axis deviation Low voltage, extremity and precordial leads Compared to ECG 08/09/2019 13:35:01 Low QRS voltage now present Heart rate has increased Electronically Signed On 03-06-2020 8:12:27 CDT by Girish Yu [email or web address] <ELECTRONICALLY SIGNED> By: Girish Yu MD, [facility] 03/06/20 0812 233 31 Girish Yu MD, FAC /EPI
--- NOTE | 2020-03-06 08:15 | NUR ---
Pt TRANSFERRED TO ICU POST CODE LAST NIGHT AND IS NOW INTUBATED. D/T TRANSFER TO ICU FOR HIGHER LEVEL OF CARE, WILL NEED NEW PT ORDERS PRIOR TO RESUMING PT INTERVENTIONS ONCE Pt MEDICALLY APPROPRIATE.
[2020-03-06 08:16] LABS: BE(vivo) -1.8 mmol/L (-2 to +3); HCO3 21.9 mmol/L (22.0-26.0); PCO2 33.3 mmHg (35.0-45.0); PO2 57.7 mmHg (80.0-100.0); pH 7.435 (7.360-7.450); sO2 91.2 % (92.0-98.0)
--- NOTE | 2020-03-06 09:03 | NUR ---
Received pt to ICU 247 from CCU-post code. Pt unresponsive, slight movement of extremities noted, not purposeful. No eye opening. Pupils responsive. Monitor shows SR. BP supported with Levophed to keep map >65. Incont of urine-catheter placed-uo minimally adequate. On vent via ETT-Called new consult to Dr Nava. orders received. Cont on 100% Fi02 -unable to wean 02 at this time. Abd distended, soft, 0g placed -sma amount yellow gastric contents. Incont of soft brown stool. No bleeding noted. last Hgb 10. Legs mottled up to knees, await Doppler results prior to SCD placed. Reswabbed for Covid 19. Enhanced Precautions practiced. See Natero for assessment. Update given to Pt approx 0730.
--- NOTE | 2020-03-06 11:14 | NUR ---
pt moved to pod 3 in icu.
[2020-03-06 12:35] LABS: HEMATOCRIT 28.2 % (37.0-47.0); HEMOGLOBIN 9.7 gm/dL (12.0-15.0); MCH 36.9 pg (26.0-34.0); MCHC 34.4 g/dL (28.0-37.0); RBC 2.63 mil/uL (4.20-5.00); RDW 14.4 % (10.5-14.5); WBC 7.4 thou/uL (4.0-11.0)
[2020-03-06 12:46] LABS: CALCIUM 7.1 mg/dL (8.5-10.1); CREATININE 0.7 mg/dL (0.6-1.0); POTASSIUM 3.6 mmol/L (3.5-5.1)
--- NOTE | 2020-03-06 12:49 | NUR ---
CONSULTED TO PLACE A CENTRAL LINE FOR A PATIENT IN ICU. THE RIGHT JUGULAR WAS WIDLEY PATENT. A #6F TRIPLE LUMEN POWER INJECTABLE CENTRAL LINE WAS PLACED AFTER A BEDSIDE TIMEOUT WAS COMPLETED. LINE WAS 25CM AND ADVANCED WITHOUT DIFFICULTY. A STAT CHEST XRAY VERIFIED LINE IN GOOD POSITION FOR USE
[2020-03-06 12:58] LABS: TROPONIN-I <0.06 ng/mL (<0.06)
[2020-03-06 13:03] LABS: MCV 107.3 fL (80.0-100.0)
--- NOTE | 2020-03-06 13:40 | NUR ---
PER PATIENT'S SHERRIE'S REQUEST, THIS NURSE SPOKE WITH PATIENT'S SON JOEL VIA PHONE TO PROVIDE UPDATE ON PATIENT. JOEL'S PHONE NUMBER IS [phone]. ANSWERED ALL OF JOEL'S QUESTIONS AND HE EXPRESSED UNDERSTANDING OF PATIENT'S CURRENT STATUS & PLAN OF CARE. HE WOULD LIKE UPDATED BY STAFF.
[2020-03-06 13:53] LABS: CALCIUM 7.1 mg/dL (8.5-10.1); CREATININE 0.8 mg/dL (0.6-1.0)
[2020-03-06 14:30] LABS: POTASSIUM 3.9 mmol/L (3.5-5.1)
--- NOTE | 2020-03-06 14:30 | NUR ---
PATIENT'S SHERRIE PRESENT AT BEDSIDE TO VISIT PATIENT. PATIENT WAS COVID NEGATIVE X 2. THIS NURSE SPOKE WITH SHERRIE AT BEDSIDE REGARDING PATIENT STATUS. SHERRIE HAS DIFFICULTY COMPREHENDING INFORMATION REGARDING PATIENT STATUS AND PLAN OF CARE. SHERRIE FREQUENTLY ASKED NURSE THE SAME QUESTIONS AGAIN AND NEEDED RE-EDUCATION ON THE SITUATION FREQUENTLY.
--- NOTE | 2020-03-06 15:28 | 2DMMODE ---
[facility] [address] [address] 2 D/M-MODE ECHOCARDIOGRAM Name: ALLAN PRYOR Room #: 247-P ADM IN M.R.#: [id number] Admission: 03/02/20 Attend Phys: Esdras Kelly MD Discharge: Date of : 56 Report #: [id number] THIS REPORT FOR: cc: FAM - Family physician unknown FAM - Family physician unknown Arjun Cabrera MD ~ APPROVED REPORT Study performed: 03/06/2020 14:19:03 EXAM: Comprehensive 2D, Doppler, and color-flow Echocardiogram Patient Location: ICU Room #: [facility] Status: routine BSA: 1.48 HR: 119 bpm BP: 127/90 mmHg Rhythm: Tachycardia Other Information Study Quality: Technically Limited Indications Hypertension/HDD Cardiac arrest 2D Dimensions IVSd: 6.52 (7-11mm) LVOT Diam: 21.03 (18-24mm) LVDd: 44.99 mm PWd: 7.02 (7-11mm) Ascending Ao: 34.90 (22-36mm) LVDs: 38.59 (25-40mm) Aortic Root: 29.00 mm IVC: 18.00 mm Aortic Valve AoV Peak Abhishek.: 1.21 m/s AO Peak Gr.: 5.86 mmHg LVOT Max P.44 mmHg LVOT Max V: 0.78 m/s ALPA Vmax: 2.24 cm2 Pulmonary Valve PV Peak Abhishek.: 0.79 m/s PV Peak Gr.: 2.50 mmHg Tricuspid Valve [facility] [address] [place] [place] [address] 2 D/M-MODE ECHOCARDIOGRAM Name: ALLNA PRYOR Room #: 247- ADM IN M.R.#: [id number] Admission: 03/02/20 Attend Phys: Esdras Kelly MD Discharge: Date of : 56 Report #: [id number] TR Peak Abhishek.: 2.50 m/s TR Peak Gr.: 24.98 mmHg PA Pressure: 30.00 mmHg Left Ventricle The left ventricle is normal size. There is dyskinesis in the apical septal wall. There is global hypokinesis of the left ventricle. There is normal left ventricular wall thickness. Left ventricular ejection fraction is at least moderately decreased. LVEF is 35-40%. This study is not technically sufficient to allow evaluation of the LV diastolic function. Right Ventricle The right ventricle is normal size. The right ventricular systolic function is normal. Atria The left atrium size is normal. The right atrium size is normal. Aortic Valve The aortic valve is normal in structure. The Aortic valve is sclerotic. No aortic regurgitation is present. There is no aortic valvular stenosis. Mitral Valve The mitral valve is normal in structure. Trace to mild mitral regurgitation. No evidence of mitral valve stenosis. Tricuspid Valve The tricuspid valve is normal in structure. There is trace tricuspid regurgitation. Estimated PAP 30 mmHg. There is no pulmonary hypertension. Pulmonic Valve The pulmonary valve is normal in structure. There is no pulmonic valvular regurgitation. Great Vessels The aortic root is normal in size. IVC is normal in size and collapses >50% with inspiration. Pericardium There is no pericardial effusion. <Conclusion> [facility] [address] [place] [address] 2 D/M-MODE ECHOCARDIOGRAM Name: ALLAN PRYOR Room #: [facility] IN [facility].#: [id number] Admission: 03/02/20 Attend Phys: Esdras Kelly MD Discharge: Date of : 56 Report #: [id number] The left ventricle is normal size. There is normal left ventricular wall thickness. Left ventricular ejection fraction is at least moderately decreased. LVEF is 35-40%. The right ventricle is normal size. The left atrium size is normal. The Aortic valve is sclerotic. Trace to mild mitral regurgitation. There is trace tricuspid regurgitation. Estimated PAP 30 mmHg. <ELECTRONICALLY SIGNED> By: Arjun Cabrera MD 03/06/20 1527 1527 1527 Arjun Cabrera MD /INF
--- NOTE | 2020-03-06 15:39 | NUR ---
SW reviewed chart and spoke with attending physician. Pt was transferred to ICU from CCU following code blue. PT is currently intubated and sedated. Pt had repeat COVID test, which was negative. SW is following to assist as needed.
--- NOTE | 2020-03-06 17:02 | EKG ---
[facility] [place] [address] ELECTROCARDIOGRAM REPORT Name: ALLAN PRYOR Room #: 247-P ADM IN M.R.#: [id number] Admission: 03/02/20 Attend Phys: Esdras Kelly MD Discharge: Date of : 56 Report #: [id number] THIS REPORT FOR: cc: FAM - Family physician unknown FAM - Family physician unknown Girish Yu MD [facility] THIS REPORT FOR: //name// [facility] Test Date: 2020-03-06 Test Time: 08:23:33 Pat Name: ALLAN PRYOR Department: Room: [facility] P Gender: F Anesthesia Attending: Vinh CORTEZ : 1960 Requested By: Aure Guerra Order Number: [id number] MD: Girish Yu Measurements Intervals [place] Rate: 97 P: 39 WA: 132 QRS: 43 QRSD: 70 T: -6 QT: 362 QTc: 460 Interpretive Statements Sinus rhythm Anteroseptal infarct, age indeterminate Compared to ECG 03/05/2020 23:35:16 No significant change was found Electronically Signed On 03-06-2020 17:02:05 CDT by Girish Yu [email or web address] <ELECTRONICALLY SIGNED> By: Girish Yu MD, [facility] 03/06/20 1702 2 2 Girish Yu MD, [facility] /EPI
--- NOTE | 2020-03-06 17:02 | EKG ---
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 : 1960 Requested By: KEON Peralta Order Number: [id number] MD: Girish Yu Measurements Intervals [place] Rate: 108 P: 62 MT: 160 QRS: 64 QRSD: 83 T: -8 QT: 317 QTc: 425 Interpretive Statements Sinus tachycardia Septal infarct, age indeterminant Low voltage, extremity leads Compared to ECG 03/05/2020 23:32:54 Sinus tachycardia no longer present Electronically Signed On 03-06-2020 17:01:35 CDT by Girish Yu [email or web address] <ELECTRONICALLY SIGNED> By: Girish Yu MD, [facility] 03/06/20 1701 2335 [id number] Girish Yu MD, [facility] /EPI
--- NOTE | 2020-03-06 19:21 | NUR ---
PATIENT ALLAN CONTINUES INTUBATED/ON VENT. FIO2 WAS REDUCED FROM 100% TO 80% THIS SHIFT. VSS. ST ON MONITOR WITH HR IN 110S-120S. RR IN 20S; OVER-BREATHING THE VENT. OCCASIONAL PERIODS WHEN ALLAN HAS RR IN 30S. NOTIFIED DR ONOFRE OF THIS. VENT PROTOCOL ORDERS PLACED. FENTANYL AND VERSED ALTERNATED; PROVIDED RELIEF OF LABORED BREATHING; RR CAME BACK DOWN INTO THE 20S. BPS WERE MAINTAINED ON LEVO GTT; BP BECAME ELEVATED; LEVO GTT REDUCED & STOPPED. BP STABLE. AFEBRILE. ALLAN IS UNRESPONSIVE. HAS SPONTANEOUS SWALLOW REFLEX. SLUGGISH PUPIL RESPONSE AND CORNEAL REFLEX; DOLL EYES PRESENT. ALLAN DOES NOT PULL AWAY FROM PAINFUL STIMULI. UPON STERNAL RUB, ARMS BILATERALLY MOVED TOWARDS BODY. NO GAG OR COUGH REFLEX UPON PERFORMING ORAL CARE/SUCTIONING. GCS 5 CONSISTENTLY THIS SHIFT. [facility] CALLED. REFERRAL NUMBER IS [phone]. [place] REMAINS IN PLACE. TOTAL OUTPUT THIS SHIFT WAS 1425CC. TOTAL IVF INPUT WAS 1997. ONE BAG SODIUM BICARB GIVEN. PERIPHERAL IVS REMOVED. RIGHT IJ TRIPLE LUMEN PLACED. EEG, EKG, AND ECHO COMPLETED THIS SHIFT. RESTRAINTS WERE DISCONTINUED AT 1800. PROTECTIVE BOOTS PLACED BILATERALLY FOR HEEL PROTECTION. MOTTLING PRESENT BILATERAL LEGS AND BILATERAL ELBOWS. BLOOD GLUCOSE 200 AND 166 THIS SHIFT.
[2020-03-07] VITALS (44 sets, daily range): BP systolic 76–125; BP diastolic 49–92
[2020-03-07 04:50] LABS: BE(vivo) -5.8 mmol/L (-2 to +3); HCO3 17.2 mmol/L (22.0-26.0); PCO2 25.9 mmHg (35.0-45.0); PO2 165.8 mmHg (80.0-100.0); pH 7.439 (7.360-7.450); sO2 99.2 % (92.0-98.0)
[2020-03-07 06:06] LABS: HEMATOCRIT 26.9 % (37.0-47.0); MCH 36.1 pg (26.0-34.0); MCHC 33.7 g/dL (28.0-37.0); MCV 107.1 fL (80.0-100.0); RBC 2.51 mil/uL (4.20-5.00); RDW 14.1 % (10.5-14.5); WBC 7.9 thou/uL (4.0-11.0)
[2020-03-07 06:23] LABS: ALBUMIN 1.5 g/dL (3.4-5.0); CALCIUM 6.9 mg/dL (8.5-10.1); CREATININE 0.7 mg/dL (0.6-1.0); MAGNESIUM 1.3 mg/dL (1.8-2.4); TOTAL BILIRUBIN 0.3 mg/dL (0.2-1.0); TOTAL PROTEIN 4.8 g/dL (6.4-8.2)
--- NOTE | 2020-03-07 06:26 | NUR ---
PATIENT DOES NOT OPEN EYES TO NAME SPONTANEOUSLY. SISTER (RENEE) CALLED IN AND ASKED TO SPEAK IN PATIENT'S EAR, AWARE. PATIENT OPENED EYES AND BLINKED 4 TIMES WHEN SISTER WAS TALKING ON THE PHONE. RESPONDS TO PAINFUL STIMULI ON LEFT HAND, DOES NOT RESPOND TO PAINFUL STIMULI ON RIGHT HAND. PUPILS SLUGGISH. SINUS RHYTHM TO SINUS TACHYCARDIA ON MONITOR. PRN VERSED GIVEN FOR AGITATION. L[place]NA PATENT. VENTILATOR SETTINGS CHANGED THROUGHOUT THE NIGHT, FIO2 DECREASED TO 60% FROM 80%, O2 SAT REMAINED ABOVE 90%, PATIENT HAS A POSITIVE GAG REFLEX AND CLOSES MOUTH WHEN DOING ORAL CARE. NO SIGN OF ACUTE DISTRESS NOTED AT THIS TIME. WILL CONTINUE TO MONITOR.
--- NOTE | 2020-03-07 08:00 | NUR ---
NURSE AND JERRY RN PRESENT AT BEDSIDE ASSESSING PATIENT. TURNED PATIENT TO RIGHT SIDE AND REPOSITIONED HER WITH WEDGES. PATIENT HAD SEIZURE LIKE ACTIVITY. PATIENT'S LEFT LEG AND ARM BEGAN TO HAVE SHAKING OR REPETITIVE MOVEMENTS; PATIENT'S HEAD TURNED TOWARDS THE LEFT AND HER EYES DEVIATED TO THE LEFT. PATIENT'S HR INCREASED INTO THE 130S AND HER OXYGEN SATS DROPPED INTO THE 80S. PRN VERSED GIVEN. NOTIFIED PHYSICIAN OF EVENT.
--- NOTE | 2020-03-07 08:18 | HC ---
[facility] [place] [address] CONSULTATION Name: ALLAN PRYOR Room #: 247-P ADM IN M.R.#: [id number] Admission: 03/02/20 Attend Phys: Esdras Kelly MD Discharge: Date of : 56 Report #: [id number] THIS REPORT FOR: cc: FAM - Family physician unknown FAM - Family physician unknown Faizan Jimenez MD ~ CC: [facility] unknown Esdras Kelly DATE OF SERVICE: 03/03/2020 GI CONSULTATION REASON FOR CONSULTATION: Recurrent nausea and vomiting. HISTORY OF PRESENT ILLNESS: Background, the patient is a 59-year-old white female admitted through the Emergency Room on 03/02/2020 with recurrent nausea, vomiting, hypokalemia and hypomagnesemia. She has had recurrent episodes of nausea and vomiting over the past 2 years and frequently will decrease her intake to clear liquids and this will resolve; however, recent episode did not improve. She had recurrent problems over the past 3 weeks with limited intake such that her weight decreased 10-15 pounds. She had not recognized any change in medications or her diet prior to onset of symptoms. She has no significant abdominal distention. If she did eat or drink a small amount, she would frequently regurgitate soon afterwards with burning. She felt very weak. She had no symptoms of chest pain, shortness of breath, fevers or chills. PAST MEDICAL HISTORY: She has an extensive past history, but does not always recall well dates. She has seen Dr. Haley, my partner in the past, but it has been a while. She had recurrent different types of abdominal pain. She does not recall timing of her last upper endoscopy. PAST SURGICAL HISTORY: She has undergone multiple abdominal surgeries for diverticular disease. She has undergone laparoscopic repair of her recurrent ventral hernia on November 2014 and believes that this was her last surgery. She underwent reversal of colostomy on August 2014 after previous placement on March 2014. She has undergone hysterectomy, rhinoplasty, thyroid lobectomy, left hip repair. She did have cardiac arrest x2 in 2014. She has history of hypertension, recurrent diverticulitis, carotid stenosis. 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 HOME MEDICATIONS: K-Dur 20 mEq p.o. b.i.d., gabapentin 300 mg p.o. t.i.d., acetaminophen p.r.n., Phenergan p.r.n., methocarbamol 750 mg p.o. t.i.d. p.r.n., carvedilol 12.5 mg per day, levothyroxine 88 mcg per day, tramadol 50 mg p.r.n., Senokot 8.6 mg each day, omeprazole 20 mg each day, Zofran p.r.n., albuterol inhaler p.r.n., thiamine 100 mg p.o. t.i.d., vitamin B12 1000 mcg sublingual [address] [address] CONSULTATION Name: ALLAN PRYOR Ivan Room #: 247-P [facility] IN .R.#: [id number] Admission: 03/02/20 Attend Phys: Esdras Kelly MD Discharge: Date of : 56 Report #: [id number] each day, magnesium oxide 800 mg p.o. b.i.d., folic acid 1 mg per day, and MiraLax 17 g per day. ALLERGIES: BEE STINGS, MORPHINE, LIDOCAINE. SOCIAL HISTORY: She does smoke cigarettes and does drink alcohol. REVIEW OF SYSTEMS: She denies any fevers or chills. She has experienced no significant chest pain, shortness of breath, wheezing, or cough. She has felt very weak. She has had recurrent nausea and at least small volume emesis with burning chest pain. She denies abdominal pain. PHYSICAL EXAMINATION: GENERAL: She appears alert and in no acute distress at rest, but frail and thin in stature. VITAL SIGNS: Afebrile, blood pressure 108/71, pulse 94. HEENT: No scleral icterus. CARDIOVASCULAR: Heart rate and rhythm regular. LUNGS: Clear to auscultation. ABDOMEN: Soft, scaphoid with no focal tenderness to palpation. EXTREMITIES: She has no significant peripheral edema. LABORATORY DATA: On admission on March 02; white blood cell count 6600, hemoglobin 12.8 with MCV 107.6, platelet count 326,000. Initial sodium 125, potassium 2.1, chloride 75, anion gap 26, BUN 12, creatinine 1.0. AST mildly increased at 56, alkaline phosphatase 155. Serum alcohol level less than 10. UA with 3+ ketones. IMAGING STUDIES: CT abdomen revealed no acute findings in the abdomen and pelvis, a multilobulated 0.8 x 1.2 cm cystic lesion in the uncinate process had increased in size from 0.9 cm. IMPRESSION: 1. Recurrent nausea and vomiting, etiology unclear. She has had recurrent issues over at least the past 2 years. Whether this may be related to severe gastritis, peptic ulcer disease, impaired emptying of the stomach, exacerbated by electrolyte abnormalities, or other is not completely clear. 2. Severe hypokalemia with initial potassium with potassium decreased to 1.8. 3. Hypomagnesemia. 4. 0.8 x 1.2 cm cystic lesion in the uncinate process. 5. Multiple abdominal surgeries. RECOMMENDATIONS: 1. Sips of water/ice chips. 2. Consider EGD Thursday. 3. Continue PPI. [facility] [address] [place] [address] CONSULTATION Name: ALLAN PRYOR Room #: 247-P ADM IN M.R.#: [id number] Admission: 03/02/20 Attend Phys: Esdras Kelly MD Discharge: Date of : 56 Report #: [id number] 4. She is to schedule followup MRI of the abdomen with contrast in 6 months to reevaluate cystic lesion in the pancreas. <ELECTRONICALLY SIGNED> By: Matteo Haley MD 03/07/20 0818 [id number] Faizan Jimenez MD /nt
--- NOTE | 2020-03-07 08:20 | NUR ---
HOSPITALIST AT BEDSIDE. IV KEPPRA; IV POTASSIUM; IV MAGNESIUM GIVEN PER ORDERS.
--- NOTE | 2020-03-07 13:50 | NUR ---
REMOVED 3 RINGS FROM PATIENT'S FINGERS DUE TO HER EDEMA. PLACED RINGS IN A LABELED BAG AND GAVE TO THE PATIENT'S TO TAKE HOME.
--- NOTE | 2020-03-07 13:55 | NUR ---
PATIENT TO CT SCAN AND BACK VIA BED WITH PORTABLE MONITOR, WITH THIS NURSE AND RT FOR CT OF HEAD.
--- NOTE | 2020-03-07 15:30 | NUR ---
PHOTO TAKEN OF PATIENT'S WOUND. PLACED ON CHART.
--- NOTE | 2020-03-07 16:55 | NUR ---
SPOKE WITH DR BETANCUR VIA PHONE. TUBE FEEDING STARTED. OK TO PLACE LOW DOSE INSULIN SS, HYPOGLYCEMIA ORDERS, AND ACCUCHECKS Q6H.
--- NOTE | 2020-03-07 16:59 | NUR ---
SPOKE WITH DR ONOFRE VIA PHONE REGARDING PATIENT'S LOW URINE OUTPUT (10-15 CC/HR). PATIENT HAD A 1 LITER BOLUS OF NS OVER 2 HRS THIS SHIFT AND MAINTANCE NS WAS INCREASED FROM 120 CC/HR TO 150 CC/HR. URINE OUTPUT REMAINED AT 10-15 CC/HR. ORDER TO GIVE 1 LITER BOLUS OF NS OVER 1 HR AND MONITOR URINE OUTPUT. SPOKE ABOUT INCREASING EDEMA IN PATIENT'S BILATERAL ARMS/HANDS; NOT CONCERNING AT THIS TIME. SPOKE ABOUT PRN MED FOR SEIZURE LIKE ACTIVITY; USE PRN VERSED FOR THIS.
--- NOTE | 2020-03-07 19:06 | NUR ---
CT HEAD AND EEG COMPLETED THIS SHIFT. PRN VERSED AND FENTANYL GIVEN FOR VENT COMFORT. VSS. LOW URINE OUTPUT- DR ONOFRE AWARE. PATIENT RECEIVED 2 L BOLUS OF NS ORDERED. SR TO ST ON THE MONITOR.
[2020-03-08] VITALS (29 sets, daily range): BP systolic 80–126; BP diastolic 50–87
--- NOTE | 2020-03-08 01:58 | NUR ---
URINE OUTPUT APPROX 10ML/HR. DR. ONOFRE NOTIFIED. ORDERS OBTAINED FOR LASIX. REFER TO EMAR.
[2020-03-08 04:45] LABS: BE(vivo) -4.5 mmol/L (-2 to +3); HCO3 17.9 mmol/L (22.0-26.0); PCO2 24.3 mmHg (35.0-45.0); PO2 62.5 mmHg (80.0-100.0); pH 7.486 (7.360-7.450)
[2020-03-08 04:58] LABS: HEMATOCRIT 24.1 % (37.0-47.0); HEMOGLOBIN 8.2 gm/dL (12.0-15.0); MCH 36.3 pg (26.0-34.0); MCHC 34.3 g/dL (28.0-37.0); MCV 105.8 fL (80.0-100.0); RBC 2.27 mil/uL (4.20-5.00); RDW 14.3 % (10.5-14.5); WBC 7.5 thou/uL (4.0-11.0)
[2020-03-08 05:17] LABS: CREATININE 0.7 mg/dL (0.6-1.0)
--- NOTE | 2020-03-08 11:05 | NUR ---
discussed during los, no anticipated dc, possible going for eeg tomorrow and thursday. will cont following as needed for dc needs.
[2020-03-08 18:54] LABS: MAGNESIUM 1.5 mg/dL (1.8-2.4); POTASSIUM 3.5 mmol/L (3.5-5.1)
--- NOTE | 2020-03-08 19:00 | NUR ---
ASSUMED CARE OF PATIENT AT 1400 FROM RUY BARNETT. ASSESSMENT COMPLETED. LAGUNA PATENT. PATIENT SEDATED AND UNRESPONSIVE. PATIENT IN UPPER EXTREMITY RESTRAINTS. MAG AND K+ REPLACED AND RECHECKED WITH LABS. PATIENT'S AND SON, ALTERNATED VISITATION TODAY AND AT THE BEDSIDE FOR THE MAJORITY OF THE DAY. JEVITY RUNNING AT 40 WITH RESIDUAL <10. PATIENT TO CONTINUE WITH POC.
[2020-03-09] VITALS (24 sets, daily range): BP systolic 96–122; BP diastolic 66–89
[2020-03-09 04:40] LABS: BE(vivo) -5.3 mmol/L (-2 to +3); HCO3 16.4 mmol/L (22.0-26.0); PO2 215.1 mmHg (80.0-100.0); pH 7.512 (7.360-7.450); sO2 99.6 % (92.0-98.0)
[2020-03-09 04:41] LABS: PCO2 20.9 mmHg (35.0-45.0)
[2020-03-09 04:47] LABS: HEMATOCRIT 22.8 % (37.0-47.0); HEMOGLOBIN 7.5 gm/dL (12.0-15.0); MCH 35.9 pg (26.0-34.0); MCHC 32.9 g/dL (28.0-37.0); MCV 108.8 fL (80.0-100.0); RBC 2.1 mil/uL (4.20-5.00); RDW 14.5 % (10.5-14.5); WBC 6.4 thou/uL (4.0-11.0)
[2020-03-09 05:10] LABS: ALBUMIN 1.5 g/dL (3.4-5.0); CALCIUM 7.4 mg/dL (8.5-10.1); CREATININE 0.7 mg/dL (0.6-1.0); MAGNESIUM 1.9 mg/dL (1.8-2.4); POTASSIUM 3.6 mmol/L (3.5-5.1); TOTAL BILIRUBIN 0.2 mg/dL (0.2-1.0); TOTAL PROTEIN 4.7 g/dL (6.4-8.2)
--- NOTE | 2020-03-09 06:10 | NUR ---
ASSUMED [facility] E[facility] CARE AT 1845. VITAL SIGNS STABLE WITH NURSE NOT PERCEIVING ANY PAIN OR NAUSEA ON BEHALF OF PATIENT. PATIENT IS SEDATED AND UNRESPONSIVE. CRITICAL LOW PCO2 ON THIS MORNINGS ABG WITH PROVIDER CONTACTED AND ORDERS RECEIVED. PATIENT WAS SLIGHTLY AGITATED WITH TURNS AND REPOSITIONING. PRN MEDICATION PROVIDED ACCORDINGLY. TURNS AND SKIN CARE PROVIDED. ENDICOTT TRANSPLANT REPRESENTITIVE CONTACTED NURSE FOR REPORT CONCERNING PATIENT AND STATES THAT CURRENTLY THEY ARE GOING TO STOP FOLLOWING. THEY WILL BE AVAILABLE IF NEEDED. CONTINUE PLAN OF CARE.
--- NOTE | 2020-03-09 17:42 | NUR ---
1200: SPOKE WITH PT'S ABOUT HOSPITAL POLICY REGARDING VISITORS. AN EXCEPTION WAS MADE PER THE PIPEMAN TO ALLOW THE SON AND TO SWITCH AND COME THE SAME DAY. DISCREPENSIES TODAY REGARDING THIS PLAN. SECURITY, DESIGNATED VISITOR LIST, AND HOUSE SUPPERVISOR WERE UNSURE ON THE PLAN OF ACTION. 1730: PT'S SON AT BEDSIDE. SPOKE WITH HOUSE SUPPERVISOR AND SECURITY FOR THE PLAN THIS . JOSE, REAL ESTATE CLOSING COORDINATOR STATED DUE TO THE LACK OF COMMUNICATION, WE WILL ALLOW SON AND TO SWITCH VISITING, NOT TO BE HERE AT THE SAME TIME. IS REQUESTING A SECOND OPINION FOR HOSPITALIST. DR PRATT CALLED, HE WILL SPEAK WITH GYPSY IN THE MORNING. SON ALSO REQUESTED A FAMILY MEETING WITH HOSPITALIST AND SPECIALISTS ON THURSDAY AFTER EEG TO MAKE PLAN.
--- NOTE | 2020-03-09 18:31 | NUR ---
SPOKE WITH /SON/MUTUEL DEPARTMENT MANAGER/ICU CHARGE ABOUT HOSPITAL POLICY REGARDING VISITING HOURS. AN EXCEPTION WAS MADE PER THE DRIP BOX TENDER TO ALLOW THE SON AND TO SWITCH AND COME VISIT THE PT ON THE SAME DAY. DISCREPENSIES REGARDING THIS PLAN, SECURITY, DESIGNATED VISITOR LIST, AND HOUSE SUP WERE UNSURE ON THE POA. PT SON AT BEDSIDE, SECURITY WAS CALLED FOR THE SAFETY OF STAFF AND PTS. FOR NOW I AM TOLD THAT IT IS OKAY FOR TWO SEPERATE VISITORS TO VISIT ON THE SAME DAY, JUST NOT AT THE SAME TIME. THIS WILL BE REVISITED ON THURSDAY. SON ALSO REQUESTED A FAMILY MEETING WITH THE HOSPITALIST AND SPECIALISTS AFTER REPEAT EEG ON THURSDAY TO UPDATE PLAN. ASSESSMENTS DOCUMENTED. PT INTUBATED AND SEDATED. POLYUREA. NO BM. CENTRAL LINE DRESSING CHANGED BY RN. VENT SETTINGS UNCHANGED. WILL CONTINUE TO MONITOR.
[2020-03-10] VITALS (54 sets, daily range): BP systolic 80–121; BP diastolic 52–83
[2020-03-10 03:41] LABS: HEMATOCRIT 23.1 % (37.0-47.0); HEMOGLOBIN 7.7 gm/dL (12.0-15.0); MCH 35.6 pg (26.0-34.0); MCHC 33.2 g/dL (28.0-37.0); MCV 107.4 fL (80.0-100.0); RBC 2.15 mil/uL (4.20-5.00); RDW 14.4 % (10.5-14.5); WBC 6.7 thou/uL (4.0-11.0)
[2020-03-10 03:50] LABS: CALCIUM 7.8 mg/dL (8.5-10.1); CREATININE 0.6 mg/dL (0.6-1.0); MAGNESIUM 1.5 mg/dL (1.8-2.4); POTASSIUM 3.1 mmol/L (3.5-5.1)
[2020-03-10 05:40] LABS: BE(vivo) -1.3 mmol/L (-2 to +3); HCO3 20.8 mmol/L (22.0-26.0); PCO2 25.7 mmHg (35.0-45.0); PO2 150.5 mmHg (80.0-100.0); pH 7.526 (7.360-7.450); sO2 99.2 % (92.0-98.0)
--- NOTE | 2020-03-10 08:02 | NUR ---
PT MOVING EXTREMITIES BUT UNSURE OF IT IS SPONTANEOUS OR ON COMMAND. PT EDEMATOUS AND WEEPING. LASIX GIVEN THIS AM. VITAL SIGNN STABLE. CONTINUE TO MONITOR. PLAN FOR EEG ON THURSDAY. UPDATED ON PT STATUS THIS AM.
--- NOTE | 2020-03-10 13:33 | NUR ---
PATIENT REMAINS INTUBATED AND SEDATED. ON SEDATION VACATION THIS AM PATIENT BECAME TACHYCARDIC, TACHYPNIC, AND STARTED ABDOMINAL BREATHING. PATIENT ALSO SEEMED VERY UNCOMFORTABLE HER HEAD WAS RAISING OFF THE BED AND ARMS WERE COMING UP. WHEN PLACING MY FINGER IN HER HAD AT THAT TIME SHE DID SQUEEZE THEM BUT WOULD NOT LET GO WHEN ASKED. IT DID NOT SEEM PURPOSEFUL. PATIENTS EYES ALSO OPENING BUT NOT TRACKING AND NO CORNEAL REFLEX NOTED. TOLERATING TUBE FEEDINGS. AT BEDSIDE. MRI ON THURSDAY PER NEURO. NO FURTHER CONCERNS AT THIS TIME. WILL CONTINUE TO MONITOR AND CARE PER PLAN OF CARE.
[2020-03-11] VITALS (29 sets, daily range): BP systolic 82–125; BP diastolic 48–90
[2020-03-11 04:18] LABS: CALCIUM 7.9 mg/dL (8.5-10.1); CREATININE 0.6 mg/dL (0.6-1.0); POTASSIUM 3.9 mmol/L (3.5-5.1)
[2020-03-11 05:50] LABS: BE(vivo) -2.8 mmol/L (-2 to +3); HCO3 20.9 mmol/L (22.0-26.0); PO2 142.4 mmHg (80.0-100.0); pH 7.433 (7.360-7.450); sO2 98.9 % (92.0-98.0)
--- NOTE | 2020-03-11 09:30 | NUR ---
sedation vacation: With lower dose propofol, patient awake, tracks, will not follow with eyes around the room. She has a positive gag and cough, alarms the vent with coughing, increase tachycardia HR 120's, increased restlessness with head. Sedation resumed for patient comfort and ventilator management.
--- NOTE | 2020-03-11 19:00 | NUR ---
Patient slowly progressing towards plan of care as evidenced by slight improvement of neuro function. She will track, smile, frown. However, no purposeful movement. Plan for MRI and EEG tomorrow.
[2020-03-12] VITALS (17 sets, daily range): BP systolic 99–149; BP diastolic 69–107
[2020-03-12 04:14] LABS: CALCIUM 8.4 mg/dL (8.5-10.1); CREATININE 0.5 mg/dL (0.6-1.0); POTASSIUM 3.7 mmol/L (3.5-5.1)
[2020-03-12 07:41] LABS: HEMATOCRIT 23.1 % (37.0-47.0); HEMOGLOBIN 7.6 gm/dL (12.0-15.0); MCH 35.5 pg (26.0-34.0); MCHC 32.8 g/dL (28.0-37.0); MCV 108.3 fL (80.0-100.0); RBC 2.13 mil/uL (4.20-5.00); RDW 15.6 % (10.5-14.5); WBC 6.2 thou/uL (4.0-11.0)
--- NOTE | 2020-03-12 11:17 | NUR ---
PT AT BEDSIDE, MRI QUESTIONAIRE COMPLETED. PROPOFOL WAS TURNED OFF AT 0840. PT HAS A POSITIVE GAG, COUGH AND PUPILARY REFLEX. PT DOES NOT TRACK, DOES NOT WITHDRAW FROM PAIN IN UPPER OR LOWER EXTREMITIES. PT MOVES HEAD, OPENS EYES AND MAKES YAWNING MOVEMENT BUT NOTHING TO COMMAND. PT DUMPING URINE THIS MORNING, URINE IS ALMOST COMPLETLY CLEAR.
[2020-03-12 12:02] LABS: BE(vivo) -0.1 mmol/L (-2 to +3); HCO3 22.3 mmol/L (22.0-26.0); PCO2 28.2 mmHg (35.0-45.0); PO2 119.5 mmHg (80.0-100.0); pH 7.516 (7.360-7.450); sO2 98.7 % (92.0-98.0)
--- NOTE | 2020-03-12 14:13 | NUR ---
chart review. geeta notified by bedside nurse that would like to speak with cm. cm called henrique back via phone call, he is not here at this time " she is down for mri and i will have hope but need someone to guide and lead me on next steps not follow me. i am not giving up, but not looking good"/spouse henrique. active listen during phone call. education that can get palliative to talk with him if needed and he is ready for that. palliative was discussed during los today. geeta passed on information to bedside nurse and MD. will cont following as needed for dc needs. she remains on vent going to have eeg and mri of head today.
[2020-03-13] VITALS (24 sets, daily range): BP systolic 109–149; BP diastolic 72–99
[2020-03-13 05:38] LABS: CALCIUM 8.8 mg/dL (8.5-10.1); CREATININE 0.6 mg/dL (0.6-1.0); POTASSIUM 3.3 mmol/L (3.5-5.1)
--- NOTE | 2020-03-13 06:37 | NUR ---
PATIENT OPENS EYES SPONTANEOUSLY, HEAD FOLLOWS RN FROM ONE SIDE OF THE ROOM TO THE OTHER, BUT DOES NOT TRACK ON REQUEST. PATIENT DOES NOT MOVE EXTREMETIES. SINUS TACHYCARDIA ON REAL ESTATE ADMINISTRATIVE ASSISTANT. ON VENTILATOR, FIO2 40%, O2 SAT REMAINS ABOVE 90%, PATIENT WEEPING ON RIGHT ARM. LAGUNA PATENT WITH GREATER THAN 30 ML/HR. MEDICATION SPECIALIST PRESENT AT THE BEDSIDE. SPOKE WITH MULTIPLE TIMES THROUGHOUT THE NIGHT AND GAVE UPDATES. NO SIGN OF ACUTE DISTRESS NOTED AT THIS TIME. WILL CONTINUE TO MONITOR.
--- NOTE | 2020-03-13 20:01 | NUR ---
PATIENT WRITHING IN BED AND PULLING AT TRACH AND OG TUBE. STRUCTURES ASSEMBLER CONTACTED WITH NURSE TO REINITIATE PROPOFOL AND PLACE BILATERAL WRIST RESTRAINTS. CALLED AND NOTIFIED.
--- NOTE | 2020-03-13 20:04 | NUR ---
ASSUMED CARE AT 0700. PT AWAKE AND UNSEDATED BUT UNABLE TO FOLLOW ANY COMMANDS. PT DOES RESPOND TO PAIN AND HAS A GAG REFLEX PRESENT. [facility] ROUNDED ON PT THIS AFTERNOON AND STATED THEY WILL NOT BE CALLING ABOUT PT DAILY. IF PT'S CONDITION CHANGES AND PT DETERIORATES THAT WE ARE TO CALL THEM BACK BUT AT THIS TIME PT HAS HIGHER GSC SCORE. PT STILL ON VENT. PT HAS OG TUBE FOR HYDRATION/MEDICATION NEEDS. PT CONSTANTLY THRASHES HEAD BACK AND FORTH. SHE WILL OCCASIONALLY MOVE LEFT ARM AND RAISE IT IN THE AIR. PT HAS NOT PULLED OR ATTEMPTED TO PULL AT ANY LINES OR TUBES THIS SHIFT. PT DID MANAGE TO TONGUE OUT HER OG TUBE AT SHIFT CHANGE. TUBE FEEDING STOPPED AND NEW OG TUBE PLACED. XRAY ORDERED FOR TUBE PLACEMENT BY ON COMING SHIFT. PT HAD BEDSIDE EEG TODAY AND WENT TO MRI TODAY. PT HAD 2 BM'S THIS SHIFT. PT HAS WOUND TO COCCYX AREA THAT IS COVERED WITH PINK FOAM DRESSING. DRESSING IS Q 4 DAY CHANGE. RN LOOKED UNDER DRESSING AND WOUND IS DRY WITH NO DRAINAGE PRESENT AND HAS A SMALL SCAB PRESENT. PT IS BEING TURNED Q2 HOURS WITH USE OF WEDGES AND PILLOWS. PT'S RIGHT ARM IS EDEMATOUS AND WEEPING. BILAT ARMS ARE ELEVATED AND PAD IS PLACED UNDER RIGHT ARM TO KEEP PT AND BED DRY. PT HAS ADEQUATE UO. PT WAS TOLERATING TUBE FEEDINGS PRIOR TO PULLING OG TUBE OUT AND WAS AT GOAL RATE OF 40 ML/HR. K WAS LOW THIS AM AND WAS REPLACED PER PROTOCOL. SEE LABS.
--- NOTE | 2020-03-13 20:13 | NUR ---
PT'S SON JOEL ARRIVED AT APPROXIMATELY 1600. SON ASKED TO SPEAK WITH NEUROLOGIST. RN PAGED DR. HENRY AND HE CALLED BACK AND SPOKE TO PT'S SON AND ANSWERED QUESTIONS FOR PT'S SON. AT 1700 RN WENT INTO PT'S ROOM AND STATED TO SON THAT VISITING HOURS HAD ENDED AND 1700 AND THAT HE COULD TAKE A FEW MINUTES TO TELL THE PT GOODBYE. PT'S SON BECAME VERY UPSET AND STATED THAT RN DID NOT KNOW WHAT SHE WAS TALKING ABOUT AND THAT HE HAS SPECIAL PERMISSION TO STAY UNTIL 1800. PT'S SON REQUESTED TO TALK TO THE PERSON IN CHARGE. NURSE MALT HOUSE KILN OPERATOR WAS ON UNIT AT THE TIME AND SHE WAS ASKED TO COME SPEAK WITH PT'S SON. NURSE MALT HOUSE KILN OPERATOR STATED THE SAME VISITING HOURS POLICY AND PT'S SON BECAME VERY UPSET STATING THAT HE HAS SPECIAL PERMISSION TO BE THE SECOND VISITOR FOR THIS PT THE CURRENT RULE IS ONLY 1 DESIGNATED VISITOR PER NON-COVID PT'S. PT'S SON ALSO STATED THAT HE HAS SPECIAL PERMISSION TO STAY UNTIL 1800 EACH NIGHT. PT'S SON GAVE NAMES OF 2 HOUSE SUPERVISORS AND HOSPITAL INSULATION ESTIMATOR. NURSE MALT HOUSE KILN OPERATOR STATED SHE WOULD ALLOW HIM TO STAY UNTIL 1800 TODAY BUT THAT SHE WOULD FOLLOW UP WITH ABOVE STATED INDIVIDUALS TO CLARIFY IF THIS IS IN FACT WHAT HE HAS BEEN TOLD. NURSE MALT HOUSE KILN OPERATOR STATES SHE IS HERE TOMORROW AND WILL LET UPDATE NURSING WITH WHAT IS DECIDED.
[2020-03-14] VITALS (25 sets, daily range): BP systolic 86–137; BP diastolic 55–88
[2020-03-14 04:49] LABS: BE(vivo) 0.2 mmol/L (-2 to +3); HCO3 23.4 mmol/L (22.0-26.0); PCO2 30.3 mmHg (35.0-45.0); PO2 141.4 mmHg (80.0-100.0); pH 7.506 (7.360-7.450)
[2020-03-14 05:51] LABS: ABSOLUTE NEUTROPHILS 5.5 thou/uL (1.4-8.2); BASOPHILS 0.1 % (0.0-2.0); EOSINOPHILS 0.9 % (0.0-3.0); HEMATOCRIT 21.6 % (37.0-47.0); HEMOGLOBIN 7.2 gm/dL (12.0-15.0); LYMPHOCYTES 13.2 % (24.0-44.0); MCHC 33.2 g/dL (28.0-37.0); MCV 108.4 fL (80.0-100.0); MONOCYTES 4.3 % (1.0-8.0); PLATELET COUNT 312 thou/uL (150-400); POLYS 81.5 % (36.0-66.0); RBC 1.99 mil/uL (4.20-5.00); RDW 15.2 % (10.5-14.5); WBC 6.8 thou/uL (4.0-11.0)
--- NOTE | 2020-03-14 06:57 | NUR ---
ASSUMED PATIENT CARE AT 1845. VITAL SIGNS STABLE WITH NURSE NOT PERCEIVING ANY PAIN OR NAUSEA. ON BEHALF OF PATIENT. BREATHING STABLE ON VENTILATOR EVIDENCED BY ASSESSMENT AND CONTINUOUS SATURATION MONITORING. PATIENT IS UNABLE TO FOLLOW DIRECTIONS AND NEURO STATUS HAS SHOWN NO IMPROVEMENT SINCE PREVIOUS SHIFT. TURNED FREQUENTLY WITH SKIN CARE PROVIDED. GOOD OUTPUT THROUGH LAGUNA CATHETER. CONTINUE PLAN OF CARE.
[2020-03-14 07:05] LABS: ALBUMIN 1.6 g/dL (3.4-5.0); CALCIUM 9.3 mg/dL (8.5-10.1); CREATININE 0.6 mg/dL (0.6-1.0); POTASSIUM 3.4 mmol/L (3.5-5.1); TOTAL BILIRUBIN 0.2 mg/dL (0.2-1.0); TOTAL PROTEIN 5.3 g/dL (6.4-8.2)
--- NOTE | 2020-03-14 09:14 | NUR ---
pt on cpap mode, tolerating well.
[2020-03-14 09:43] LABS: BE(vivo) -0.6 mmol/L (-2 to +3); HCO3 22.5 mmol/L (22.0-26.0); PCO2 30.5 mmHg (35.0-45.0); PO2 105.5 mmHg (80.0-100.0); pH 7.486 (7.360-7.450); sO2 98.2 % (92.0-98.0)
--- NOTE | 2020-03-14 11:14 | NUR ---
pt has a lot of oral secretions, tape holding og tube to ett got saturated and pt was able to wiggle ogt out. tube feed turned off, will replace and get kub for confirmation
[2020-03-15] VITALS (23 sets, daily range): BP systolic 103–142; BP diastolic 67–95
[2020-03-15 08:20] LABS: ALBUMIN 1.6 g/dL (3.4-5.0); CALCIUM 9.1 mg/dL (8.5-10.1); CREATININE 0.7 mg/dL (0.6-1.0); POTASSIUM 3.1 mmol/L (3.5-5.1); TOTAL BILIRUBIN 0.2 mg/dL (0.2-1.0)
--- NOTE | 2020-03-15 13:46 | NUR ---
PT OPENS EYES AND IS TRACKING. NOT FOLLOWING COMMANDS. AT BEDSIDE, ALL LABS AND POC REVIEWED WITH . DR CHAMBERS SPOKE WITH REGARDING TEST RESULTS AND PTS MENTATION. PT TOLERATED CPAP TRIAL FOR 4 HRS, PT APNEIC ALARM SOUNDING-RR 6. CPAP DISCONTINUED AND UPDATED JAZMÍN. VITAL SIGNS STABLE. PLAN IS TO ATTEMPT WEANING AGAIN TOMORROW- UPDATED ON PLAN.
--- NOTE | 2020-03-15 17:36 | HC ---
[facility] [place] [address] CONSULTATION Name: ALLAN PRYOR Room #: 247-P ADM IN M.R.#: [id number] Admission: 03/02/20 Attend Phys: Esdras Kelly MD Discharge: Date of : 56 Report #: [id number] THIS REPORT FOR: cc: FAM - Family physician unknown FAM - Family physician unknown Blaise Pantoja MD ~ CC: DANIEL unknown Esdras Kelly DATE OF SERVICE: 03/06/2020 HISTORY OF PRESENT ILLNESS: This 59-year-old female patient who was evaluated by me to prognosticate the patient after cardiac arrest. I talked to the night nurses looking after this patient and talked to [facility] former and talked to the day nurses. The patient has a nonischemic cardiomyopathy and had V-tach. She was on the monitor at that time and she was resuscitated. Nurses tell me she is not on any sedation, but she is not responding this morning either. She does have a gag reflex. REVIEW OF SYSTEMS: Positive for GI problems. The patient was bradycardic at one time. The patient is intubated. She has by record question of seizure history. 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 She also has a history of carotid stenosis or occlusion. That appeared to be documented and CT angiogram done in 2019. PAST MEDICAL HISTORY: Pretty extensive and is positive for ischemic cardiomyopathy. FAMILY AND SOCIAL HISTORY: Unavailable. We will try to contact the family. PHYSICAL EXAMINATION: This patient has no response of any kind to any painful or verbal stimuli. Pupils are sluggish at best. She has no reflexes. That is all the examination which can be carried out. Her blood pressure is 138/98. Pulse is 102 and respiration is 24. LABORATORY DATA: Indicate a white count of 13.6, but that may be because of stress. She has numerous lab abnormalities. Potassium has fluctuated. Her albumin is very low. IMPRESSION: Neurological consultation is being requested to prognosticate the patient ____. She had a cardiac arrest. It was in-hospital arrest. It is too early to determine the prognosis. She is going to get more testing done. I will get an EEG done but we have to wait until the Cardiology and Pulmonary feels comfortable to do some imaging study of the brain. She will need that and I will talk to other physician how comfortable they feel, sending her down for [address] [address] CONSULTATION Name: ALLAN PRYOR Room #: 247-P ADM IN .R.#: [id number] Admission: 03/02/20 Attend Phys: Esdras Kelly MD Discharge: Date of : 56 Report #: [id number] and we will get it done when they feel comfortable. Thank you very much for this referral and we will try to reach ____ <ELECTRONICALLY SIGNED> By: Blaise Pantoja MD 03/15/20 1736 [id number] Blaise Pantoja MD /brandon
--- NOTE | 2020-03-15 17:37 | EEG ---
[facility] [place] [address] ELECTROENCEPHALOGRAM Name: ALLAN PRYOR Room #: 247-P ADM IN M.R.#: [id number] Admission: 03/02/20 Attend Phys: Esdras Kelly MD Discharge: Date of : 56 Report #: [id number] THIS REPORT FOR: //name// CC: FAM unknown Esdras Kelly DATE OF SERVICE: 03/13/2020 INTERPRETATION: This patient is being evaluated for hypoxic encephalopathy. EEG was done by placing the electrodes by standard 10-20 system of electrode placement. Both referential and sequential montages were used for recording. Background activity in this patient's EEG is about 5-6 Hz and 10 microvolt. It is still low-voltage activity. Photic stimulation was unremarkable. No active epileptiform activity was noticed. IMPRESSION: This is an abnormal EEG, which is slow and low amplitude. That is a nonspecific finding, which can occur with encephalopathy, dementia, effect of psychotropic medication, etc. Clinical correlation is recommended. EEG looks about the same as it was on the first time. Thank you very much for this referral. <ELECTRONICALLY SIGNED> By: Blaise Pantoja MD 03/15/20 1737 1518 1523 Blaise Pantoja MD /nt
--- NOTE | 2020-03-15 17:37 | EEG ---
[facility] [place] [address] ELECTROENCEPHALOGRAM Name: ALLAN PRYOR Room #: 247-P ADM IN M.R.#: [id number] Admission: 03/02/20 Attend Phys: Esdras Kelly MD Discharge: Date of : 56 Report #: [id number] THIS REPORT FOR: //name// CC: FAM unknown Esdras Kelly DATE OF SERVICE: 03/07/2020 This patient is being evaluated for hypoxic encephalopathy. EEG was done by placing the electrode by standard 10-20 system of electrode placement. A lot of artifact was present, so paralytic agents were given by Pulmonology. Background activity is very disorganized and poorly formed. It may be about 4 Hz and 10 microvolts. Photic stimulation is unremarkable. IMPRESSION: This is a severely abnormal EEG consistent with encephalopathy. Well-defined cortical activity is present. The patient will need serial EEGs to prognosticate her. Thank you very much for this referral. <ELECTRONICALLY SIGNED> By: Blaise Pantoja MD 03/15/20 [phone] Blaise Pantoja MD /nt
--- NOTE | 2020-03-15 17:37 | EEG ---
[facility] [place] [address] ELECTROENCEPHALOGRAM Name: ALLAN PRYOR Room #: 247-P ADM IN M.R.#: [id number] Admission: 03/02/20 Attend Phys: Esdras Kelly MD Discharge: Date of : 56 Report #: [id number] THIS REPORT FOR: //name// CC: FAM unknown Esdras Kelly DATE OF SERVICE: 03/06/2020 This patient is being evaluated for hypoxic encephalopathy. EEG was attempted, but there is a lot of artifact, most of is muscle artifact, but some of it is chewing artifact. Photic stimulation is unremarkable. It is not possible to make any impression on this EEG. IMPRESSION: This patient's EEG is masked by a lot of artifact and is not possible to make a definite impression on this. It is recommended that a repeat EEG be done by giving the patient some paralyzing agent if the patient is still on vent. <ELECTRONICALLY SIGNED> By: Blaise Pantoja MD 03/15/20 [phone] Blaies Pantoja MD /nt
--- NOTE | 2020-03-15 17:37 | EEG ---
[facility] [place] [address] ELECTROENCEPHALOGRAM Name: ALLAN PRYOR Room #: 247-P ADM IN M.R.#: [id number] Admission: 03/02/20 Attend Phys: Esdras Kelly MD Discharge: Date of : 56 Report #: [id number] THIS REPORT FOR: //name// CC: FAM unknown Esdras Kelly DATE OF SERVICE: 03/09/2020 This patient is being evaluated for hypoxic encephalopathy. EEG was done by placing the electrode by standard 10-20 system of electrode placement. Both referential and sequential montages were used for recording. EEG is very difficult to interpret. There is a lot of muscle and electronic artifact is present and it is not possible to tell whether that from the cortical activity. On some occasions, the EEG looks about the same, but on other occasions, EEG does appear to be showing cortical activities, which is difficult to distinguish from the artifact. Photic stimulation is unremarkable. IMPRESSION: This is a difficult EEG to interpret. A lot of artifact is present, which is difficult to separate from the cortical activity. I will suggest doing an EEG with a paralyzing agent and without propofol if possible in this patient because this EEG is not very diagnostic. Thank you very much for this referral and if you have any question, please feel free to contact me. <ELECTRONICALLY SIGNED> By: Blaise Pantoja MD 03/15/20 [id number] Blaise Pantoja MD /brandon
[2020-03-16] VITALS (22 sets, daily range): BP systolic 115–150; BP diastolic 77–100
[2020-03-16 04:55] LABS: BE(vivo) 0.1 mmol/L (-2 to +3); HCO3 22.9 mmol/L (22.0-26.0); PCO2 27.3 mmHg (35.0-45.0); PO2 115.7 mmHg (80.0-100.0); pH 7.542 (7.360-7.450); sO2 98.7 % (92.0-98.0)
[2020-03-16 05:50] LABS: ABSOLUTE NEUTROPHILS 5.6 thou/uL (1.4-8.2); BASOPHILS 0.3 % (0.0-2.0); EOSINOPHILS 1.1 % (0.0-3.0); LYMPHOCYTES 10.9 % (24.0-44.0); MCH 35.4 pg (26.0-34.0); MCHC 33.3 g/dL (28.0-37.0); MCV 106.3 fL (80.0-100.0); MONOCYTES 6.2 % (1.0-8.0); PLATELET COUNT 339 thou/uL (150-400); POLYS 81.5 % (36.0-66.0); RBC 1.97 mil/uL (4.20-5.00); WBC 6.9 thou/uL (4.0-11.0)
[2020-03-16 06:11] LABS: ALBUMIN 1.9 g/dL (3.4-5.0); CALCIUM 9.5 mg/dL (8.5-10.1); CREATININE 0.8 mg/dL (0.6-1.0); TOTAL BILIRUBIN 0.2 mg/dL (0.2-1.0); TOTAL PROTEIN 5.3 g/dL (6.4-8.2)
--- NOTE | 2020-03-16 07:24 | NUR ---
PATIENT REMAINS ON THE VENT WITH NO SEDATION. PATIENT TRACKS, BUT DOES NOT FOLLOW COMMANDS. NO RESPIRATORY DISTRESS NOTED OVER NIGHT. POTASSIUM LEVEL 3.0 THIS MORNING, REPLACING PER PROTOCOL. , SHERRIE CALLED AND THIS NURSE UPDATED HIM ON PATIENT CONDITION. VSS. SEE ASSESSMENT FOR MORE INFO.
--- NOTE | 2020-03-16 08:18 | NUR ---
0715 RECEIVED REPORT FROM URBANO. ASSUMED CARE AT THIS TIME.
[2020-03-16 17:13] LABS: BE(vivo) 0.2 mmol/L (-2 to +3); PCO2 29.3 mmHg (35.0-45.0); PO2 119.4 mmHg (80.0-100.0); pH 7.512 (7.360-7.450); sO2 98.7 % (92.0-98.0)
--- NOTE | 2020-03-16 17:21 | NUR ---
patient cont in ICU care, on vent, anoxic encephalopathy. Spouse supportive. Dr Frazier consult for goals of care. Casemgt following for dc planning.
--- NOTE | 2020-03-16 20:57 | NUR ---
RECIEVED CALL BACK FROM DR COLEMAN FOR A ROUTINE CONSULT CALLED TO ANSWERING SERVICE AT THE END OF PREVIOUS SHIFT BY P[REVIOUS SHIFT NURSE
[2020-03-17] VITALS (24 sets, daily range): BP systolic 100–144; BP diastolic 57–95
--- NOTE | 2020-03-17 05:40 | NUR ---
PT ALERT INTUBATED. NO ABLE ABLE TO COMMUNICATE OR FOLLOW COMMANDS. NO S/S OF PAIN. TUBE FEEDING JEVITY THRO OG TUBE. PT ON SOFT RESTRAINTS. PT HAS A LAGUNA DRAINS WITHOUT ANY DIFFICULTIES. TURN AND REPO Q2H. NO NEW ACUTE FINDINGS SO FAR THIS SHIFT.
--- NOTE | 2020-03-17 09:38 | NUR ---
asked to speak to discharge coordinator. He was informed earlier that no food or drinks were allowed in the ICU per ICU policy. States that he has been allowed since the beginning to bring in & drink while in the room. Explained policy to him a second time.Apologized for any inconvenience.Reminded him that no food or drinks for visitrs was on the ICU pamplet, which he states he was given.--vw
[2020-03-17 12:15] LABS: HEMATOCRIT 20.1 % (37.0-47.0); MCH 35.9 pg (26.0-34.0); MCHC 33.8 g/dL (28.0-37.0); MCV 106.3 fL (80.0-100.0); RBC 1.89 mil/uL (4.20-5.00); RDW 15.1 % (10.5-14.5); WBC 7.5 thou/uL (4.0-11.0)
[2020-03-17 12:20] LABS: HEMOGLOBIN 6.8 gm/dL (12.0-15.0)
[2020-03-17 12:28] LABS: CALCIUM 9.6 mg/dL (8.5-10.1); CREATININE 0.8 mg/dL (0.6-1.0); POTASSIUM 3.5 mmol/L (3.5-5.1)
[2020-03-17 16:50] LABS: HEMATOCRIT 20.8 % (37.0-47.0)
--- NOTE | 2020-03-17 17:53 | NUR ---
PATIENT REMAINS INTUBATED - NOT ON ANY SEDATION. MOVING ALL EXREMITIES SPONTANEOUSLY (R > L) BUT DOES NOT FOLLOW COMMANDS. OPENS EYES SPONTANEOUSLY, OCCASSIONALLY ATTEMPTS TO TRACK APPROPRIATELY. BREATHING TRIAL ATTEMPTED EARLIER IN THE DAY AND PATIENT DID NOT TOLERATE WELL - BECAUME TACHEIPNEIC RR 40s, HR 110s, AND VISIBLY RESTLESS WITHIN 15 MIN OF TRIAL INITIATION. CBC COLLECTED AND SENT PER ORDER, HGB 6.8 - DR. NOYOLA NOTIFIED AND PLAN FOR TRANSFUSION OF PRBCS. TMAX 100.8, TYLENOL GIVEN AND DR. NOYOLA NOTIFIED. PATIENT'S AT THE BEDSIDE, AND UPDATED ON PROGRESS / PLAN OF CARE.
[2020-03-18] VITALS (49 sets, daily range): BP systolic 87–161; BP diastolic 59–106
[2020-03-18 00:20] LABS: HEMATOCRIT 25.4 % (37.0-47.0); HEMOGLOBIN 8.6 gm/dL (12.0-15.0)
--- NOTE | 2020-03-18 01:54 | NUR ---
PATIENT AGITATED AND PULLING AT RESTRAINTS WHILE TRYING TO PUT LEGS OUT OF BED. STRIKE WARFARE/MISSILE SYSTEMS OFFICER CONTACTED WITH NURSE INSTRUCTED TO PUT PATIENT BACK ON LOW DOSE PROPOFOL.
--- NOTE | 2020-03-18 07:52 | NUR ---
ASSUMED PATIENT CARE AT 1845. BREATHING STABLE ON VENTILATOR EVIDENCED BY ASSESSMENT AND CONTINUOUS SATURATION MONITORING. PATIENT IS ALERT BUT UNABLE TO FOLLOW COMMANDS OR PROPERLY TRACK. PROPOFOL INITIATED DUE TO PATIENT BEING RESTLESS AND AGITATED. FREQUENT TURNS WITH SKIN CARE PROVIDED. ADEQUATE OUTPUT THROUGH INDWELLING CATHETER. TUBE FEED PER ORDER WITH MINIMAL TO NO RESIDUALS. CONTINUE PLAN OF CARE.
--- NOTE | 2020-03-18 09:57 | NUR ---
Dr Uribe here to see pt for rounds. Requesting to have Propofol shut off. Propofol shut off now. Sinus tachycardia-rate 99. is at bedside and spoke with .
[2020-03-18 11:25] LABS: BE(vivo) 1.9 mmol/L (-2 to +3); HCO3 24.3 mmol/L (22.0-26.0); PCO2 29.9 mmHg (35.0-45.0); PO2 111.1 mmHg (80.0-100.0); pH 7.527 (7.360-7.450); sO2 98.5 % (92.0-98.0)
--- NOTE | 2020-03-18 11:52 | NUR ---
Propofol dc'd at 0958. Pt has completed CPAP trial. Pt is awake and restless at this time. Pt does not follow requests to assess understanding. ABG was called to Dr Wilkerson. Order received to continue on CPAP for now and update later. Pt incontinent of stool.
--- NOTE | 2020-03-18 13:30 | NUR ---
Placed back on vent setting from CPAP trial period. Pt having apnea alarms and low minute ventilation. Pt does not appear in distress and is much more alert according to her .
--- NOTE | 2020-03-18 19:38 | NUR ---
ASSUMED CARE OF PT AT 1400. PT MORE ALERT AND ANIMATED THIS AFTERNOON. FOLLOWING COMMANDS. PLAN TO START PRECEDEX TONIGHT FOR SEDATION, CALLED AND INFORMED OF MEDICATION CHANGE. VERY AWAKE, TRYING TO SIT UP IN BED, NEEDS SOMETHING TO STAY CALM. PLAN FOR WEAN TOMORROW AND MAYBE EXTUBATE.
[2020-03-19] VITALS (46 sets, daily range): BP systolic 83–143; BP diastolic 56–98
[2020-03-19 05:24] LABS: BASOPHILS 0.8 % (0.0-2.0); EOSINOPHILS 1.9 % (0.0-3.0); HEMATOCRIT 24.8 % (37.0-47.0); HEMOGLOBIN 8.4 gm/dL (12.0-15.0); LYMPHOCYTES 14.9 % (24.0-44.0); MCH 33.8 pg (26.0-34.0); MCHC 33.9 g/dL (28.0-37.0); MCV 99.5 fL (80.0-100.0); MONOCYTES 6.4 % (1.0-8.0); PLATELET COUNT 377 thou/uL (150-400); RBC 2.49 mil/uL (4.20-5.00); RDW 20.6 % (10.5-14.5); WBC 6.6 thou/uL (4.0-11.0)
[2020-03-19 05:41] LABS: CALCIUM 9.5 mg/dL (8.5-10.1); CREATININE 0.7 mg/dL (0.6-1.0); TOTAL BILIRUBIN 0.2 mg/dL (0.2-1.0); TOTAL PROTEIN 5.9 g/dL (6.4-8.2)
[2020-03-19 05:50] LABS: BE(vivo) -1.2 mmol/L (-2 to +3); HCO3 21.1 mmol/L (22.0-26.0); PCO2 27.8 mmHg (35.0-45.0); PO2 115.5 mmHg (80.0-100.0); pH 7.498 (7.360-7.450); sO2 98.6 % (92.0-98.0)
--- NOTE | 2020-03-19 06:32 | NUR ---
PRECEDEX STARTED AND TITRATED.OCCASIONALLY BP IS LOW.MONITOR SHOWS SR,ST.POC CONTINUED.
--- NOTE | 2020-03-19 09:00 | NUR ---
chart review. pt spouse at bedside with her, she remains on vent, noted from outside room, pt had eyes open and legs up in bed moving. will cont following as needed for dc needs. dung lund working with rishi.
--- NOTE | 2020-03-19 14:28 | NUR ---
DR. ONOFRE SPOKE WITH PT'S AFTER WHICH IS WAS INSTRUCTED TO SWITCH VENTILATOR BACK TO ASSIST CONTROL AND USE SEDATION IF NEEDED. DO JEMIMA WILL REEVALUATE PT IN THE AM.
--- NOTE | 2020-03-19 17:27 | NUR ---
PT REMIANS ON MACHANICAL VENTILATION AT 30% FI02 AND TUBE FEEDING VIA OG TUBE. PT HAD 8 HOUR CPAP TRIAL TODAY. PT PROGRESSING TOWARDS GOALS.
--- NOTE | 2020-03-19 18:35 | NUR ---
CALLED PT'S AT HOME SO HE COULD DISCUSS CASE WITH DR. COLEMAN. ASKED TO CALL PT'S SISTER (SANG) TO GIVE MORE COMPLETE INFORMATION TO FAMILY I COULD ONLY GIVE A LIMITED UPDATE AT THE TIME.
[2020-03-20] VITALS (47 sets, daily range): BP systolic 86–153; BP diastolic 61–107
[2020-03-20 06:16] LABS: CALCIUM 9.5 mg/dL (8.5-10.1); CREATININE 0.6 mg/dL (0.6-1.0); POTASSIUM 3.5 mmol/L (3.5-5.1)
--- NOTE | 2020-03-20 08:17 | NUR ---
ASSUMED PT CARE AT THE CHANGE OF SHIFT, PT IS AWAKE, ALERT AND ABLE TO NOD FOR YES OR NO QUESTIONS, VSS, SR/ST ON THE MONITOR, PT REMAINS ON THE VENT O2SATS STABLE, REMAINS ON PRECEDEX, [id number] MAINTAINED, TUBE FEEDING ORDERED, ASSESSMENTS CHARTED, PASSED ON REPORT TO DAY NURSE
[2020-03-20 11:56] LABS: BE(vivo) -2.2 mmol/L (-2 to +3); HCO3 20.8 mmol/L (22.0-26.0); PCO2 29.6 mmHg (35.0-45.0); PO2 116.4 mmHg (80.0-100.0); pH 7.465 (7.360-7.450); sO2 98.5 % (92.0-98.0)
--- NOTE | 2020-03-20 15:42 | NUR ---
ASSUMED CARE AT 0700, ASSESSMENT AND VITAL SIGNS COMPLETED PER ICU PROTOCOL. DR. ONOFRE ROUNDED THIS AM, DISCUSSED PLAN FOR EXTUBATION. DR. COLEMAN ROUNDED THIS AM, DISCUSSED LONG-TERM CARE WITH SPOUSE AND PT. 1300: PT EXTUBATED BY RT, RN WAS BEDSIDE ASSISTING. PT PLACED ON NON REBREATHER FACE SHIELD AT 35% O2. PT REMAINS STABLE POST EXTUBATION. DR. ONOFRE ROUNDED AGAIN IN THE AFTERNOON TO ASSESS. PLAN OF CARE DISCUSSED, RN WILL CONTINUE TO MONITOR.
[2020-03-21] VITALS (20 sets, daily range): BP systolic 104–161; BP diastolic 71–107
[2020-03-21 05:59] LABS: CALCIUM 8.9 mg/dL (8.5-10.1); CREATININE 0.6 mg/dL (0.6-1.0); POTASSIUM 3.2 mmol/L (3.5-5.1)
--- NOTE | 2020-03-21 07:18 | NUR ---
PT DELIRIOUS AND CONFUSED BUT FOLLOWS COMMANDS. PT HASNT SLEPT THROUGHOUT THE NIGHT. PT ON 5L NC. CHART CHECK. CONTINUE TO MONITOR. CHART CHECK.
--- NOTE | 2020-03-21 17:47 | NUR ---
PATIENT ON/OFF 2 L N/C, VSS, SOME DELIRUM NOTED, BUT ABLE TO FOLLOW COMMANDS AND REDIRECT APPROPRIATELY. PATIENT TRANSFERED TO CCU BED 205. AT BEDSIDE AND PRESENT DURING TRANSFER. BELONGINGS (CLOTHING, SHOES) WITH PATIENT. RECIEVING RN UPDATED.
[2020-03-21 18:26] LABS: MAGNESIUM 2.7 mg/dL (1.8-2.4); POTASSIUM 3.6 mmol/L (3.5-5.1)
--- NOTE | 2020-03-21 20:01 | NUR ---
1999 - WENT INTO THE ROOM PER PT'S 'S REQUEST TO SEE THE RN. UPON ENTERING PROVIDED HISTORY REGARDING PT'S CURRENT VISIT AND PAST VISITS. WAS REPORTED BY THAT PT HAD CODED ON THE 2N UNIT AT RM 208, PT'S WAS CONCERNED ABOUT PROMTOING REST FOR THE PT SINCE SHE HAD NOT SLEPT THE EVENING PRIOR. PT'S MENTATION IS DIMINISHED, PT IS ONLY ORIENTED TO SELF AND LOCATION. PT HAD TREMORS OF THE HEAD, VERY SOFT SPOKEN (MAY BE R/T EXTUBATION), IT WAS ALSO REPORTED THAT THE PT HAD A L HIP FX AND MARIA G PLACEMENT, AND RESIDUAL PAIN AT THAT SITE. WILL BE CONSIDERATE OF THIS ISSUE WHEN TURNING. ASKED ABOUT THE VISITING HOURS AND CONTACT FOR THE UNIT. WILL CONTINUE TO FOLLOW. PT IS SITTING UP RIGHT, RN PROVIDED EDUCATION TO BOTH MEMBERS ABOUT POC, HOW TO USE THE CALL LIGHT, THEY WERE BOTH REASSURED THAT STAFF MEMBERS ARE PRESENT TO ASSIST WITH NEEDS THAT ARISE. WILL CONTINUE TO MONITOR AND UPDATE NECESSARY
[2020-03-22 04:49] VITALS: BP 144/90
[2020-03-22 05:38] LABS: CALCIUM 9.7 mg/dL (8.5-10.1); CREATININE 0.7 mg/dL (0.6-1.0); POTASSIUM 3.4 mmol/L (3.5-5.1)
[2020-03-22 07:50] VITALS: BP 153/110
[2020-03-22 12:05] VITALS: BP 130/89
--- NOTE | 2020-03-22 15:07 | NUR ---
Trimmer Operator visited with the pt and her spouse at bedside. Pt attempting to talk or answer questions but speech is garbled and difficult to understanding. Pt's spouse feels this is due to being on the vent for so long. She was recently extubated and tranfered to tele step down. PT/OT/ST/[facility] are evaluating. Pt is weak and pain in her hip that needs surgery appears to be a concern. Pt's spouse states that they live in a split level home and have been staying on the main level prior to her admission to avoid the stairs. She has eight to enter the home and another 8 up to bedroom and bathroom. They are currently living on the main level and only go upstairs to the full bathroom for a shower every few days. She has a rwalker at home and has been going up and down the steps on her bottom. He anticipates they will continue this regime once she is able to go home. He is hopeful she can qualify and ins will approval acute rehab here. He does not feel SNF would be benefical as he could not visit or participate in her rehab. He is support and a very involved group care worker. 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 [facility] liason updated. Will follow.
[2020-03-22 15:30] VITALS: BP 109/81
[2020-03-22 20:02] VITALS: BP 101/78
[2020-03-23] VITALS (7 sets, daily range): BP systolic 127–158; BP diastolic 62–102
--- NOTE | 2020-03-23 07:29 | NUR ---
PATIENT IS PROGRESSING SLOWLY IN HER CARE PLAN. ALERT TO SELF, PATIENT IS UNABLE TO CALL FOR NEEDS OR PARTICIPATE IN CARE. NURSE PERCEIVED PAIN ON BEHALF OF PATIENT AND TREATED HER THROUGH MEDICATION AND REPOSITIONING. BREATHING STABLE ON ROOM AIR EVIDENCED BY ASSESSMENT AND SPOT OXYGENATION CHECKS. SWALLOW PRECAUTIONS FOLLOWED. WOUND/SKIN CARE PROVIDED WITH PATIENT REPOSITIONED FREQUENTLY. POTENTIAL DISCHARGE TO REHAB SOON. CONTINUE PLAN OF CARE.
--- NOTE | 2020-03-23 08:52 | NUR ---
REC REPORT ON PT AND ASSUMED CARE AT SHIFT CHANGE, MOANS AND SLOWLY TRYING TO GET OOB. WHEN ASKED IF HER STOMACH HURTS AND TOUCH IT, SHE SAYS NO. ALSO CLEARLY SAID THIRSTY THIS A.M. TRIES TO SAY HER BDATE, STARTS W/THE FOUR OF DECEMBER. WILL CONTINUE TO MONITOR. HOLDS JUICE CUP WELL, JUST INTERMITTENTLY HAS A LOUD MOAN/NO SOUND. PAIN IN LEFT HIP, ACTS IF SHE DOESN'T LIKE THE LAGUNA CATHETER, GENTLE INSTRUCTION/REMINDER ON NOT LEAVING THE BED AND THAT WE'LL CHECK ON HER FREQUENTLY.
--- NOTE | 2020-03-23 12:06 | NUR ---
Case discussed with the care team. [facility] liason indicates that they can accept the pt for an acute rehab stay pending insurance approval. They will submit for auth today but do not anticipate they will get it till Thursday. Care team udpated. Pt's spouse attentive and at bedside. Pt more alert and sitting up in chair this am. Will follow.
--- NOTE | 2020-03-23 13:15 | NUR ---
PATIENT HAS BEEN ACCEPTED FOR ACUTE REHAB STAY TO [facility]. AUTHORIZATION REQUESTED THIS DATE FROM [facility]. FORM AND PATIENT CLINICAL INFORMATION FAXED REQUESTED. RESPONSE MAY TAKE UPTO 72 HOURS. PER INSURANCE, NO RESPONSE OVER WEEKEND. WILL AWAIT RESPONSE WITH POSSIBLE ADMIT 03/26/20, IF RESPONSE RECEIVED. BLOCKER AND SEWER INFORMED. THANK YOU FOR THIS REFERRAL.
--- NOTE | 2020-03-23 18:44 | NUR ---
HYDROCODONE GIVEN AT 0900: PHARMACY SUGGESTED SCANNING THEM AGAIN AND CHANGING TIME, UNABLE TO DO SO SINCE THE SYSTEM THINKS I'M GIVING ANOTHER DOSE NOT LONG AFTER THIS LATE AFTERNOONS DOSE.
--- NOTE | 2020-03-24 03:54 | NUR ---
ASSUMED PT CARE AT 1900. PT IS ALERT AND CONFUSED. PT IS STABLE LAYING IN BED. PT IS MOANING IN BED. FALL PRECAUTION IN PLACE. ASSESSMENT COMPLETED AND DOCUMENTED. SCHEDULED MEDS ADMINISTERED TO PT. TOLERTAED PO INTAKE. CONINUE TO MONITOR PT. NO FURTHER NEEDS AT THIS TIME
[2020-03-24 04:00] VITALS: BP 163/112
[2020-03-24 07:45] VITALS: BP 143/94
[2020-03-24 07:52] LABS: ABSOLUTE NEUTROPHILS 3.2 thou/uL (1.4-8.2); BASOPHILS 0.7 % (0.0-2.0); EOSINOPHILS 3.3 % (0.0-3.0); HEMATOCRIT 31.4 % (37.0-47.0); LYMPHOCYTES 31.7 % (24.0-44.0); MCH 32.3 pg (26.0-34.0); MONOCYTES 7.2 % (1.0-8.0); PLATELET COUNT 575 thou/uL (150-400); POLYS 57.1 % (36.0-66.0); RDW 19.1 % (10.5-14.5); WBC 5.7 thou/uL (4.0-11.0)
[2020-03-24 08:04] LABS: CALCIUM 9.3 mg/dL (8.5-10.1); CREATININE 0.6 mg/dL (0.6-1.0); MAGNESIUM 1.9 mg/dL (1.8-2.4); PHOSPHORUS 3.7 mg/dL (2.5-4.9); POTASSIUM 3.9 mmol/L (3.5-5.1)
--- NOTE | 2020-03-24 09:18 | NUR ---
ASSUMED CARE OF PT AT SHIFT CHANGE, REPORTS OF UP ALL NIGHT WITH DBP >100, THIS A.M. IT'S COME DOWN. STILL CALLING OUT 'NO' BUT WILL ANSWER SOME QUESTIONS WITH ONE WORD ANSWERS SPOUSE AT BEDSIDE HELPING W/CARES. SEE SEPARATE INTERVENTIONS FOR ASSESSMENTS. WILL CONTINUE TO MONITOR
[2020-03-24 11:35] VITALS: BP 123/89
[2020-03-24 15:45] VITALS: BP 145/106
[2020-03-24 18:45] VITALS: BP 107/45
[2020-03-25 01:06] LABS: GLYCOHEMOGLOBIN (HGB A1C) 5.3 % (4.8-5.6)
--- NOTE | 2020-03-25 01:06 | NUR ---
PATIENTS CARE WAS ASSUMED AT SHIFT CHANGE. PATIENT WAS ASSESSED AND MEDS WERE PASSED. PATIENTS SPOUCE WAS IN THE ROOM UNTIL VISITING HOURS WERE OVER. AFTER THE WENT HOME PATIENT BECAME VERY RESTLESS. MIDNIGHT ACCU CHECK NOT DONE DUE TO PATIENT HAD JUST CLAMMED HER SELF ENOUGH TO FALL A SLEEP. IN THE PATIENT BEST INTEREST THE NURSING PLAN WAS FOR HER TO GET A SOLID SIX TO SEVEN HOURS OF SLEEP. HOURLY ROUNDS DONE WITH A WATCHFUL EYE INTO HER ROOM FROM THE POSITION OF NURSINGS DESK. THE BED IS IN A LOW AND LOCKED POSITION,
[2020-03-25 04:53] VITALS: BP 145/91
[2020-03-25 07:40] VITALS: BP 132/108
[2020-03-25 11:35] VITALS: BP 132/94
--- NOTE | 2020-03-25 14:50 | NUR ---
RANDOM VERBALIZATIONS. FEARFUL WHEN TURNED. LEFT HIP ISSUES UNDERSTOOD. IS HERE, STATES PATIENT WILL NOT EAT PUREED DIET. INTAKE VERY POOR. MEDICATED FOR PAIN PER 'S REQUEST. SR/ST PER TELE; SHE CHEWED UP ONE OF THE LEADS. FALL PRECAUTIONS IN PLACE. WILL CONTINUE TO FOLLOW CLOSELY.
[2020-03-25 16:35] VITALS: BP 142/98
[2020-03-25 19:47] VITALS: BP 141/97
[2020-03-26 05:29] LABS: HEMOGLOBIN 11.2 gm/dL (12.0-15.0); MCH 34.1 pg (26.0-34.0); MCHC 33.9 g/dL (28.0-37.0); MCV 100.6 fL (80.0-100.0); RBC 3.28 mil/uL (4.20-5.00); RDW 19.7 % (10.5-14.5); WBC 5.5 thou/uL (4.0-11.0)
[2020-03-26 05:47] LABS: CALCIUM 9.4 mg/dL (8.5-10.1); CREATININE 0.8 mg/dL (0.6-1.0); MAGNESIUM 2.5 mg/dL (1.8-2.4); POTASSIUM 4.2 mmol/L (3.5-5.1)
[2020-03-26 07:55] VITALS: BP 118/86
--- NOTE | 2020-03-26 08:32 | NUR ---
PT RPOSITIONED NEEDED, C/O COLD, PAIN BY POINTING, DOES USE WORDS PERIODICALLY, INCONT OF BOWEL AND BLADDER, PRN PAIN MEDS GIVEN NEEDED, RESTING QUIETLY A FEW HOURS AT A TIME, VSS, REPORT GIVEN TO NEXT SHIFT WILL CON'T TO MONITOR PER PPOC.
[2020-03-26 11:45] VITALS: BP 132/96
--- NOTE | 2020-03-26 13:20 | NUR ---
CALLED [facility]ONE AND SPOKE WITH KAREN REGARDING REQUEST FOR INSURANCE AUTHORIZATION FOR ACUTE REHAB. PER KAREN, REQUEST IS STILL BEING PROCESSED. AUREA/OREN UPDATED. WILL CONTINUE TO AWAIT RESPONSE FROM TONE.
--- NOTE | 2020-03-26 13:33 | NUR ---
At this time no insurance auth. They have up to 72 hours for auth.
[2020-03-26 16:05] VITALS: BP 148/104
[2020-03-26 16:30] VITALS: BP 135/61
--- NOTE | 2020-03-26 17:43 | NUR ---
ASSUMMED PT CARE AT APPROXIMATELY 0700. PT AWAKE AND ORIENTED TO SELF. FREQUENT ORIENTATION PROVIDED. ASSESSMENT CHARTED. FALL PRECAUTIONS IN PLACE. PER FLACC PAIN ASSESSEMENT, PT RECEIVED ANALGESICS. PT HAD A DECREASED FLACC SCORE AFTER ANALGESICS GIVEN. INFORMED DR. KAUR OF PT'S INCREASE PLT COUNT. HEMATOLOGY CONSULTED. CONSULT CALLED. PT TRANSFERING TO [facility]. REPORT GIVEN TO RN. RN STATED UNDERSTANDING AND DENIED HAVING FURTHER QUESTIONS. VITAL SIGNS STABLE. PT COMFORTABLE. NO NEW CONCERNS.
[2020-03-26 20:39] VITALS: BP 136/62
[2020-03-26 21:20] VITALS: BP 151/99
--- NOTE | 2020-03-27 05:40 | NUR ---
Assumed pt care at 1900. Pt's Alert and oriented to self only,sometimes trying to communicate with gestures/words. VSS. C/o left hip pain medicated with Tylenol with relief reported. Incontinent of B&B,pericare done as needed and moisture barrier applied;boarder foam in place on coccyx. Pt moved closer to NS @ HS per request for closer observation r/t history of cardiac arrests. Fall precautions in place,pt doesn't attempt to get OOB by herself. Resting on and off through the night. Will continue to monitor pt.
[2020-03-27 06:00] LABS: HEMATOCRIT 33.2 % (37.0-47.0); HEMOGLOBIN 10.9 gm/dL (12.0-15.0); MCHC 32.7 g/dL (28.0-37.0); MCV 100.9 fL (80.0-100.0); RBC 3.3 mil/uL (4.20-5.00); RDW 19.2 % (10.5-14.5); WBC 5.6 thou/uL (4.0-11.0)
[2020-03-27 06:32] LABS: CALCIUM 9.3 mg/dL (8.5-10.1); CREATININE 0.8 mg/dL (0.6-1.0); MAGNESIUM 2.6 mg/dL (1.8-2.4); POTASSIUM 3.6 mmol/L (3.5-5.1)
[2020-03-27 07:17] VITALS: BP 154/108
--- NOTE | 2020-03-27 12:15 | NUR ---
ASSUMED CARE AT 0700. PATIENT IS CONFUSED, ORIENTED TO PERSON ONLY. PATIETN LARIOS'S, VOLUMETRIC WEIGHER ARE EQUAL. LUNGS ARE DEMINISHED. ABD IS SOFT WITH BSX4. PATIENT IS INCONTINENT OF URINE. AND STOOL. PATIENT HAD PREVIOUS LEFT HIP REPAIR THAT IS HEALED. S.L. IS PATENT AND INTACT. IV SITE WITHOUT REDNESS OR SWELLING. PT/OT/ST EVAL TO BE DONE. FALL AND SAFETY PROTOCOLS IN PLACE. DENIES PAIN AT THIS TIME. WILL CONTINUE TO MONITER.
--- NOTE | 2020-03-27 14:15 | NUR ---
AWAITING INSURANCE AUTH FOR [facility]. CARE TEAM INDICATED THAT PT WAS SEEN BY DIETARY AND THAT THEY HAD PUT PT ON 72HR CALORIE COUNT. AWAITING RESULTS TO DETERMINE IF PT NEEDS NUTRITIONAL SUPPORT OR INTERVENTION. CM TO FOLLOW INDICATED WITH DC PLANNING.
[2020-03-27 19:43] VITALS: BP 90/63
--- NOTE | 2020-03-28 05:33 | NUR ---
Assumed pt care at 1900. Pt is A/OX1,confused but able to make needs known at times. VSS. C/o pain to Left hip,medicated per EMAR with relief noted. Incontinent of B&B,pericare provided as needed,foam dressing in place on coccyx. Took HS meds crushed with applesauce w/o problems,declined drinking the strawberry ensure stated she doesn't like it will relay to day shift nurse to try other options,drunk apple juice w/o problems. Fall precautions in place,resting w/o distress will continue to monitor pt.
[2020-03-28 06:08] LABS: HEMATOCRIT 33.2 % (37.0-47.0); HEMOGLOBIN 10.8 gm/dL (12.0-15.0); MCH 32.8 pg (26.0-34.0); MCHC 32.6 g/dL (28.0-37.0); MCV 100.4 fL (80.0-100.0); RBC 3.31 mil/uL (4.20-5.00); RDW 19.5 % (10.5-14.5); WBC 5.5 thou/uL (4.0-11.0)
[2020-03-28 06:20] LABS: CALCIUM 9.3 mg/dL (8.5-10.1); MAGNESIUM 2.6 mg/dL (1.8-2.4); POTASSIUM 3.9 mmol/L (3.5-5.1)
[2020-03-28 08:21] VITALS: BP 111/72
[2020-03-28] MEDS ORDERED: HEPARIN SO5000 UNIT/ SUBQ (14:03)
[2020-03-28] MEDS ORDERED: MEGESTROL400 MG/11 PO (14:03)
[2020-03-28] MEDS ORDERED: LISINOPRIL2.5 MG PO (14:03)
[2020-03-28] MEDS ORDERED: IPRAT-ALBUT 0.5-3 ML INH (14:03)
[2020-03-28] MEDS ORDERED: CARVEDILOL12.5 MG PO (14:03)
[2020-03-28] MEDS ORDERED: MELATONIN5 M1 PO (14:03)
[2020-03-28] MEDS ORDERED: SYNTHROID100 MC1 PO (14:03)
[2020-03-28] MEDS ORDERED: HYDROCODON-ACE1 EAC7 PO (14:04)
--- NOTE | 2020-03-28 15:01 | NUR ---
AUTH WAS RECIEVED FOR PT TO DC TO [facility] THIS DAY. PT AND SPOUSE ARE AWARE AND AGREEABLE. REPORT TO BE CALLED TO . NO OTHER CM INTERVENTION INDICATED. CASE CLOSED.
[2020-03-28 15:35] VITALS: BP 105/62
--- NOTE | 2020-03-28 16:05 | NUR ---
PATIENT IS ALERT TO SELF. KNOWS NAME AND IS PLEASANT. MEDICATIONS GIVEN W APPLESAUCE. PATIENT EXPRESSES PAIN WHEN TURNED AND CLEANED. PRN PAIN MEDS GIVEN. SAW PATIENT AND D/C ORDERS PUT IN. PATIENT GIVEN COMPLETE BED CHANGE AND PARTIAL BED BATH. CORINA CARE GIVEN. REPORT GIVEN TO JUAN RAMON REDMOND TO TRANSFER TO N. WILL CONTINUE TO MONITOR.
--- NOTE | 2020-04-02 19:11 | HC ---
[facility] [place] [place] [address] CONSULTATION Name: ALLAN PRYOR Room #: 451-P [facility] IN M.R.#: [id number] Admission: 03/02/20 Attend Phys: Esdras Kelly MD Discharge: 03/28/20 Date of : 56 Report #: [id number] THIS REPORT FOR: cc: FAM - Family physician unknown FAM - Family physician unknown Victoriano Brown MD ~ CC: [facility] unknown Arjun Newman MD REQUESTING PHYSICIAN: Esdras Kelly MD REASON FOR CONSULTATION: Elevated platelet count. HISTORY OF PRESENT ILLNESS: The patient is a 59-year-old female admitted for weakness on about 03/02/2020. She had also been having some vomiting, poor appetite, nausea and dry heaving. She denied hematemesis, melena or hematochezia at that time. At this time in the morning of 03/28/2020, she really cannot answer questions. Note that Neurology has been seeing the patient for mental status changes. Note that she subsequently had a period of cardiac arrest and was in the ICU for a while. She is now on the regular hospital floor. With regards to her platelet count in the past, they used to be in the 230-300 range. Around admit on 04/01/2020, platelet count was 326. They became elevated on 03/24/2020 at 575. On 03/27/2020, they were 584. Today on 03/28/2020, they are 555. During the same time, her white count has been in the range of around 5.5. Hemoglobin has usually been around 10.8. Note that earlier on at admission it had actually been about 12.8, this has been stable in this range for some time. MCV earlier this admit had been around 110, even 125, is currently 100.4. Differential has been nonacute. Also, note with regards to her chemistries, creatinine is 1, BUN is 20. Liver functions recently had been in normal range, though total bilirubin had been 0.2 the last week or two. Ammonia checked several years ago was 22. C-reactive protein on 03/06/2020 was 161.8. Sed rate was 43 on 03/06/2020. TSH on 03/22/2020 was 40.384. Ferritin was 830 on 03/06/2020. Folate 8.6. Vitamin B12 1627. Imaging done in recent times includes CT abdomen and pelvis on 03/02/2020 that showed the liver was normal in appearance. The spleen was normal in size. There was a question of a multiloculated 0.8 x 1.2 cm cystic lesion in the uncinate process of the pancreas that is increased in size when previously was 0.9 cm. They recommended followup MRI with contrast in [address] head done on 03/22/2020 showed mild prominence of ventricles and sulci consistent with volume loss, also changes of periventricular microvascular ischemia with no acute intracranial abnormality seen. Earlier on, she had an MRI head on 03/12/2020 which showed chronic changes. [address] [address] CONSULTATION Name: ALLAN PRYOR Room #: 451-P [facility] IN ..#: [id number] Admission: 03/02/20 Attend Phys: Esdras Kelly MD Discharge: 03/28/20 Date of : 56 Report #: [id number] MEDICATIONS: This admit include megestrol 800 mg daily; lisinopril 2.5 daily; famotidine 20 mg daily; folic acid 1 mg daily; Tylenol p.r.n.; sennosides 8.6 daily; magnesium oxide 800 b.i.d.; carvedilol 12.5 b.i.d.; levothyroxine 100 mcg, I believe this begun on 03/23/2020; atorvastatin calcium 20 mg daily; aspirin 81 mg daily; hydrocodone p.r.n.; thiamine 100 mg daily oral; potassium chloride 20 mEq b.i.d.; heparin 5000 units b.i.d.; melatonin 10 mg at bedtime p.r.n.; ipratropium albuterol q. 6 respiratory therapy; metoprolol, I believe that is p.r.n. PHYSICAL EXAMINATION: GENERAL: The patient appears her stated age. VITAL SIGNS: Recent height was reported as 5 feet 3 or 160 cm earlier in an admit, current weight is around 84 pounds or 38.1 kilos. Blood pressure slightly low today at 90/63, respirations 18, pulse 70, afebrile at 97.6. HEENT: Face is symmetrical. MOOD: The patient appears relaxed. NEUROLOGIC: The patient's mentation is altered, but I have not seen this patient before. She looks like she hears the questions, but seems confused about how to answer them. She tries to answer, but cannot really seem to make much sense. She is also lying at an angle on her bed. LYMPHATICS: No enlarged lymph nodes in the supraclavicular, cervical, axillary or inguinal region. ABDOMEN: Scaphoid, no masses, nontender. EXTREMITIES: Without clubbing or cyanosis. There may be some trace edema. HEART: Appears regular rate. LUNGS: Have symmetric respiration without significant rhonchi, rales, no wheezes. ASSESSMENT AND PLAN: 1. Thrombocytosis, likely reactive. We will check peripheral smear review. Given earlier elevation of sed rate and C-reactive protein and hospitalization, this is most likely reactive, especially since her platelets were near normal or were normal on admit. We would follow at this time expectantly, do not see any reason for any other intervention at this time. 2. Altered mental status, followed by Neurology, has had CT and MRI head. It sounds like there is some concern or question whether this may be related to alcohol-related encephalopathy or some metabolic encephalopathy on top of this. Note that thyroid is being replaced. We will defer to others. 3. Nonischemic cardiomyopathy followed by Dr. Cabrera with low EF. Continue carvedilol and other medications. 4. Past arrhythmias. Defer management to others. 5. Hypertension. Defer to others. 6. Carotid arterial disease by history. Defer to others. 7. History of tobacco usage. Encouraged continued cessation. 8. History of chronic alcohol. Agree with folate, thiamine, [place] [address] CONSULTATION Name: ALLAN PRYOR Room #: 451-P [facility] IN M.R.#: [id number] Admission: 03/02/20 Attend Phys: Esdras Kelly MD Discharge: 03/28/20 Date of : 56 Report #: [id number] abstinence. 9. Hyperlipidemia per others. 10. Weakness. Defer to rehab services. <ELECTRONICALLY SIGNED> By: Victoriano Brown MD 04/02/20 [id number] Victoriano Brown MD /nt
== END 2020-03-28 16:28 | DRG 870 ==
LOC: ER 12:00 → 2N 14:21 → ICU 14:21 → EROBS 14:21 → 2N 14:30 → ICU 03-06 00:25 → 2N 03-21 17:44 → 4W 03-26 19:01
PROVIDERS: Emergency Medicine; Hospitalist; Internal Medicine; Internal Medicine Pulmonary Disease; Nurse Practitioner; Nurse Practitioner Family; Pediatrics; ADMIT Internal Medicine; ATTEND Internal Medicine
PROC: 0DJ08ZZ Inspection of Upper Intestinal Tract, Via Natural or Artificial Opening Endoscopic (ICD-10-PCS; 2020-03-05)
PROC: 5A1955Z Respiratory Ventilation, Greater than 96 Consecutive Hours (ICD-10-PCS; principal; 2020-03-06)
PROC: 0BH17EZ Insertion of Endotracheal Airway into Trachea, Via Natural or Artificial Opening (ICD-10-PCS; principal; 2020-03-06)
PROC: 02HV33Z Insertion of Infusion Device into Superior Vena Cava, Percutaneous Approach (ICD-10-PCS; 2020-03-06)
PROC: 30233N1 Transfusion of Nonautologous Red Blood Cells into Peripheral Vein, Percutaneous Approach (ICD-10-PCS; 2020-03-17)
DX: A41.9 Sepsis, unspecified organism (principal); E43 Unspecified severe protein-calorie malnutrition; I46.9 Cardiac arrest, cause unspecified; J96.01 Acute respiratory failure with hypoxia; J69.0 Pneumonitis due to inhalation of food and vomit; Z68.1 Body mass index [BMI] 19.9 or less, adult; E87.1 Hypo-osmolality and hyponatremia; I42.8 Other cardiomyopathies; G93.1 Anoxic brain damage, not elsewhere classified; K86.3 Pseudocyst of pancreas; F10.10 Alcohol abuse, uncomplicated; E87.6 Hypokalemia; K29.20 Alcoholic gastritis without bleeding; D53.9 Nutritional anemia, unspecified; E89.0 Postprocedural hypothyroidism; I65.29 Occlusion and stenosis of unspecified carotid artery; E86.0 Dehydration; E83.42 Hypomagnesemia; E78.5 Hyperlipidemia, unspecified; R73.9 Hyperglycemia, unspecified; D47.3 Essential (hemorrhagic) thrombocythemia; F17.210 Nicotine dependence, cigarettes, uncomplicated; G40.909 Epilepsy, unspecified, not intractable, without status epilepticus; D50.9 Iron deficiency anemia, unspecified; D75.89 Other specified diseases of blood and blood-forming organs; G62.9 Polyneuropathy, unspecified; F32.9 Major depressive disorder, single episode, unspecified; I11.0 Hypertensive heart disease with heart failure; I50.9 Heart failure, unspecified; Z90.49 Acquired absence of other specified parts of digestive tract; Z93.3 Colostomy status; Z90.710 Acquired absence of both cervix and uterus; Z79.899 Other long term (current) drug therapy; Z88.5 Allergy status to narcotic agent; Z91.030 Bee allergy status; Z03.818 Encounter for observation for suspected exposure to other biological agents ruled out
CPT/HCPCS: 10047; 10078; 10081; 10797

== ENCOUNTER 2020-03-28 14:21 | Inpatient (IN) | payer OTHER ==
[~2020-03-28] VITALS: Ht 160 cm; Wt 46.8 kg
[~2020-03-28 14:21] MED LIST changes: +CARVEDILOL12.5 MG PO; +HEPARIN SO5000 UNIT/ SUBQ; +HYDROCODON-ACE1 EAC7 PO; +IPRAT-ALBUT 0.5-3 ML INH; +MEGESTROL400 MG/11 PO; +MELATONIN5 M1 PO; +SENOKOT8.6 MG PO; +SYNTHROID100 MC1 PO
--- NOTE | 2020-03-28 18:03 | NUR ---
PATIENT ADMITTED TO ROOM 515. PT IS NON-VERBAL, MOANING LOUDLY WHEN TOUCHED, AND STIFFENING WHEN MOVED. PT IS NOT ABLE TO FOLLOW SIMPLE COMMANDS AT THIS TIME, BUT HER STATED THAT YESTERDAY, SHE WAS "BETTER THAN THIS, TALKING TO BE AT TIMES." PHYSICAL ASSESSMENT COMPLETED, AND PICTURES TAKEN OF WOUND AT BOTTOM. PT IS INCONT, AND WAS CHANGED AND TURNED DURING ADMISSION. IS FEEDING HER AT PRESENT.
[2020-03-28 19:45] VITALS: BP 112/80
--- NOTE | 2020-03-29 02:18 | NUR ---
SWALLOWING MEDS WITH APPLESAUCE. INCONTINENT OF BOWEL AND BLADDER, TURNING SELF TO HER LEFT, PILLOW AND SEIZURE PAD TO LEFT UPPER SIDERAIL. TURNED TO RIGHT AND STRAIGHTENED EVERY 2 HOURS. LOW AIR LOSS PUMP ORDERED DUE HER BEING THIN ENOUGH TO HAVE A PROMINENT BACKBONE AND RIGHT ISCHIAL PRESSURE SORE.
[2020-03-29 05:53] LABS: HEMATOCRIT 32.5 % (37.0-47.0); HEMOGLOBIN 10.8 gm/dL (12.0-15.0); MCH 33.6 pg (26.0-34.0); MCHC 33.3 g/dL (28.0-37.0); MCV 101.1 fL (80.0-100.0); RBC 3.21 mil/uL (4.20-5.00); RDW 20.2 % (10.5-14.5)
--- NOTE | 2020-03-29 06:05 | NUR ---
QUIET EXCEPT FOR PERIODIC MOANS WITH MINIMAL THRASHING. AT 0530, SHE WAS ABLE TO C/O PAIN AND COLD. SMILED WHEN WARM BLANKETS ON, STATES PAIN PILL HELPED "A LITTLE"
[2020-03-29 06:08] LABS: CALCIUM 9.2 mg/dL (8.5-10.1); CREATININE 0.8 mg/dL (0.6-1.0); MAGNESIUM 2.6 mg/dL (1.8-2.4); POTASSIUM 4.7 mmol/L (3.5-5.1)
--- NOTE | 2020-03-29 11:14 | NUR ---
WOUND CARE CONSULT; ASSESS BUTTOCKS/SACRAL AREA W/ DOOR GLASS INSTALLER DON, STAGE 2 PRESSURE INJURY SACRUM, OLD WOUND R ISHCIAL HEALING, NOT OPEN, NO DRAINAGE FROM EITHER WOUND, NO S/S INFECTION, COOPERATIVE, SEE PROCESS INTERVENTION FOR WOUND DETAILS, PT INCONT STOOL AT TIMES, PER NURSE NO INCONT W/ BLADDER RECOMMENDATIONS; WILL ORDER LOW AIR PUMP TO BED, WAFFLE SEAT CUSHION, TURN Q2 HOURS WHEN IN BED, DO NOT SIT LONGER THAN 2 HOUR PERIODS, OFF LOADING, PRESSURE RELIEF, MOISTURE BARRIER CREAM BID, BORDER FOAM DRSG TO SACRAL AREA, CHANGE DAILY AND PRN DOOR GLASS INSTALLER AWARE
--- NOTE | 2020-03-29 11:26 | NUR ---
ASSUMED CARE AT 0700. PATIENT IS ALERT AND ORIENTED TO PERSON ONLY. PATIENT THINKS SHE IS AT [facility] AND THE YEAR IS 2008. ALEXIS IS THE PRESIDENT. PATIENT LARIOS'S, EXAMINATION SUPERVISOR ARE EQUAL. LUNGS ARE CLEAR AND DEMINISHED. ABD IS SOFT WITH BSX4. WOUND CARE NURSE HERE TO EVAL WOUND ON BOTTOM. DRESSING CHANGED AND OPTIFOAM APPLIED. BARRIER CREAM APPLIED TO HER BOTTOM. FALL AND SAFETY PROTOCOLS IN PLACE. C/O PAIN IN HER LEFT HIP. PAIN MED GIVEN BY NIGHT NURSE. CONTINUES TO PROGRESS SLOWLY TOWARDS D/C GOALS. OUT TO THE DINING ROOM FOR MEALS WITH S.T. WHO HAD TO FEED PATIENT. FLUIDS CHANGED TO NECTAR THICK LIQUIDS. WILL CONTINUE TO MONITER.
--- NOTE | 2020-03-29 13:33 | NUR ---
RD RECOMMENDATIONS: 1) Initiated Ensure pudding BID at breakfast, dinner for use by RNs for meds 2) Send Magic Cup at lunch and placed Ensure Enlive bottles in unit fridge for use during REST ROOM MAID sessions per REST ROOM MAID approved plan after RD discussion. Ensure Enlive must stay chilled at all times to be nectar like. 3) If NO significant improvement in PO intake by early next week, strongly REC considering discussion of PEG placement w/ spouse to prevent further nutrition losses and exacerbation of malnutrition.
--- NOTE | 2020-03-29 15:18 | NUR ---
Case opened to follow for dc planning. 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 Director Index spoke with the pt's spouse Bishnu. They are familiar with acute rehab from a previous stay last year. She is progressing and he is hoping she can regain her strength. Dc plan is to return home. He would like [facility] if needed at dc or outpt therapy depending on her progress. She has a rwalker at home. She was going up and down the 8 steps to the full bathroom on her bottom due to her hip pain. She is in need an another hip replacement in the future. He is with her 30/03 and very supportive. They have been living on the main level of the home to avoid daily trips up/down the steps. He is aware of team conf on Thursday and expecting an update on ELOS and her progress at that time. Support provided. Will follow.
[2020-03-29 20:10] VITALS: BP 104/72
--- NOTE | 2020-03-30 03:45 | NUR ---
PATIENT AOX1 CONFUSED AND FORGETFUL. PATIENT REQUESTED TO TALK TO THE BUT WAS TEARFUL DURING THE CONVERSATION. PATIENT FELT BETTER AFTER TALKING TO THE . WAS UPSET BECAUSE OF PATIENT STATE OF MIND. EDUCATED THAT THIS NURSE CANNOT REFUSE TO GIVE PATIENT THE PHONE BECAUSE PATIENT WAS GETTING UPSET AND CONTINUED TO TELL ,PATIENT FELT BETTER AFTER SHE TALKED WITH HIM.PATIENT IS STIFF DURING TRANSFER, TOILETING. PATIENT NEEDS X2 ASSIST WITH ADL, BED MOBILITY, TTRANSFER AND TOILETING. PATIENT TURNED Q 2 HOURS. PATIENT YELLS AT TIMES DURING THE NIGHT AND STAFF REASSURES HER SHE IS SAFE. PATIENT IN BED ASLEEP AT THIS TIME BREATHING REGULAR AND UNLABOURED.
[2020-03-30 08:08] LABS: HEMOGLOBIN 10.8 g/dL (11.1-15.9)
[2020-03-30 08:38] VITALS: BP 87/63
[2020-03-30 19:00] VITALS: BP 100/76
--- NOTE | 2020-03-30 20:19 | NUR ---
ASSUMED CARE AT 0700. PATIENT IS ALERT AND ORIENTED TO PERSON ONLY. THERAPISTS REPORT PT SEEMS HAS SOME HALLUCINATION, HX OF ENCEPHALOPATHY. HAS CONSULT FOR PSYCHIATRIST. CALLED DR. HERNANDEZ AND SHE CAME TO SEE PT AND HER . PATIENT LARIOS'S, GAS LEAK TESTER ARE EQUAL. LUNGS ARE CLEAR AND DEMINISHED. ABD IS SOFT WITH BSX4. HAS SOME SMALL BM WOUND CARE NURSE HERE TO EVAL WOUND ON BOTTOM. DRESSING CHANGED AND OPTIFOAM APPLIED. BARRIER CREAM APPLIED TO HER BOTTOM. FALL AND SAFETY PROTOCOLS IN PLACE. C/O PAIN IN HER LEFT HIP 03/16, MORNING MEDS AND HYDROCODONE PRN GIVEN. MEDS CRUSHSED AND GIVEN WITH APPLE SAUCE. CONTINUES TO PROGRESS SLOWLY TOWARDS D/C GOALS. OUT TO THE DINING ROOM FOR MEALS WITH S.T. WHO HAD TO FEED PATIENT. FLUIDS CHANGED TO NECTAR THICK LIQUIDS. ASSISTED PT TO BATHROOM. TRANSFER WITH 2 STAFF SINCE PT IS STIFF AND ANXIOUS. WAS WITH PT AND THAT HELPED SHE CALM. PT IS RESTING COMFORTABLE IN BED. FALL PRECAUTION IN PLACE. CALL LIGHT WITHIN REACH. GAVE REPORT TO NIGHT NURSE TO CONTINUE TO MONITOR.
--- NOTE | 2020-03-31 04:51 | NUR ---
03-30-20 CARE TRANSERED 1914 PT SUPINE IN BED WITH EYES OPEN. 2039 PT AAOX1. VSS RR EVEM AMD NONLABORED ON RA, SKIN W/D. PT REPORTS PAIN IN LEFT HIP AND SCORES 6 ON 0-10 SCALE. DRESSINGS CLEAN, DRY AND INTACT ON BACK. PT DENIES ANY NEW PAIN AT THIS TIME. DURING MEDICATION ADMIN PT HAD NO DIFFICULTIES TAKING MEDICATION IN APPLESAUCE. THROUGHOUT NURSING ROUNDS ZERO ACUTE DISTRESS NOTED. WILL CONTINUE TO MONITOR PER [facility] PROTOCOL.
[2020-03-31 06:16] LABS: ABSOLUTE NEUTROPHILS 4.7 thou/uL (1.4-8.2); BASOPHILS 0.9 % (0.0-2.0); EOSINOPHILS 0.5 % (0.0-3.0); HEMATOCRIT 28.5 % (37.0-47.0); HEMOGLOBIN 9.7 gm/dL (12.0-15.0); MCH 33.9 pg (26.0-34.0); MCV 99.8 fL (80.0-100.0); MONOCYTES 4.8 % (1.0-8.0); POLYS 64.8 % (36.0-66.0); RBC 2.86 mil/uL (4.20-5.00); RDW 20.2 % (10.5-14.5); WBC 7.3 thou/uL (4.0-11.0)
[2020-03-31 06:22] LABS: PLATELET COUNT 399 thou/uL (150-400)
[2020-03-31 06:36] LABS: CALCIUM 9.2 mg/dL (8.5-10.1); CREATININE 0.8 mg/dL (0.6-1.0); MAGNESIUM 1.7 mg/dL (1.8-2.4); POTASSIUM 3.8 mmol/L (3.5-5.1)
[2020-03-31 08:15] VITALS: BP 103/70
[2020-03-31 20:05] VITALS: BP 117/83
--- NOTE | 2020-03-31 20:17 | NUR ---
ASSUMED CARE AT 0700. PATIENT IS ALERT AND UP AND PARTICIPATES WITH THERAPY. OT GOT PT UP EARLY THIS AM. REASSESSMENT PER CHART. LEAD REFINER ARE EQUAL. LUNGS ARE CLEAR AND DEMINISHED. ABD IS SOFT WITH BSX4. WOUND CARE DONE, THEY ARE LOOKING BETTER, SINCE PT HAS BEEN LAYING ON THE SIDE. DRESSING CHANGED AND OPTIFOAM APPLIED. PT IS ON LOW AIR LOSS MATTRESS. FALL AND SAFETY PROTOCOLS IN PLACE. C/O PAIN IN HER LEFT HIP 03/16, MORNING MEDS AND HYDROCODONE PRN GIVEN. MEDS CRUSHSED AND GIVEN WITH APPLE SAUCE/ CONTINUES TO PROGRESS SLOWLY TOWARDS D/C GOALS CONTINUE TO WORK WITH ST ON NECTAR THICK LIQUIDS. ASSISTED PT TO BATHROOM. TRANSFER WITH 2 STAFF SINCE PT IS STIFF AND ANXIOUS. WAS WITH PT AND THAT HELPED SHE CALM. PT IS RESTING COMFORTABLE IN BED. FALL PRECAUTION IN PLACE. CALL LIGHT WITHIN REACH. GAVE REPORT TO NIGHT NURSE TO CONTINUE TO MONITOR.
--- NOTE | 2020-04-01 03:50 | NUR ---
TOLERATING MEDS CRUSHED IN APPLESAUCE, UP TO BSC BY REQUEST WITH 2P ASSIST FOR 125 CC VOID, OTHERWISE INCONTINENT. OPTIFOAM DRESSING APPLIED TO SACRUM AT MIDNIGHT, IT HAS ALREADY COME OFF DUE TO FRICTION OF PATIENT TURNING SELF. LOW AIR LOSS MATTRESS CONTINUES. PILLOWS TO TURN TO SIDE.
--- NOTE | 2020-04-01 15:18 | NUR ---
Alert and forgetful. Follows directions. Asked to use bathroom but brief already wet. Spouse here all day and helped patient eat meals. Patient wanted to go smoke and have wine. Nicoderm patch applied. Optifoam over lolis sacral promince. AM cares completed with max assist. Speech garbled and difficult to understand.
[2020-04-01 16:12] VITALS: BP 102/69
--- NOTE | 2020-04-01 19:20 | NUR ---
PATIENT INSISTS ON GOING HOME AND TALKS ABOUT SIGNING HERSELF OUT. VICKIE IS HERE AND IS UNABLE TO TAKE CARE OF HER UNTIL SHE IS STRONGER. PATIENT REASSURED THAT OUR GOAL AND HIS GOAL ARE ALSO TO GET HER HOME AND THE PLAN IS TO REHAB HER IN THAT DIRECTION. WE ARE TELLING HER THAT HER HUNGER IS ACTUALLY A GOOD SIGN AND THAT I CAN GET HER XANAX RESTARTED FOR ONE DOSETO HELP HER THROUGH THE NIGHT.
[2020-04-01 19:55] VITALS: BP 126/83
--- NOTE | 2020-04-02 01:30 | NUR ---
BRIEF REMOVED AND PATIENT TURNED TO LEFT SIDE. SACRAL DRESSING IS INTACT, PATIENT IS INCONTINENT OF URINE, CLEANED AND Z-GUARD TO SMALL OPEN SORE
[2020-04-02 08:40] VITALS: BP 108/76
--- NOTE | 2020-04-02 10:48 | NUR ---
ASSUMED CARE AT 0700 THIS MORNING. PT. GOT UP INTO W/C AND INTO THE DINNING ROOM FOR BREAKFAST. SHE IS SPEAKING IN BETTER SENTENCES THAN SHE WAS A DAY OR TWO AGO. SHE DOES START TO TELL YOU SOMETHING BUT FORGETS HER LINE OF THOUGHT. SHE IS PLEASANT AND COOPERATIVE WITH HER CARES. SHE IS DENYING HALLUCINATIONS AT THIS TIME. SHE HAS A LOW AIR LOSS MATTRESS, IS A 2 PERSON ASSIST TO BEDSIDE COMODE. SHE HAS A LIDOCAINE PATCH TO HER LEFT HIP, AND OPTIFOAM TO A BARELY NOTABLE PLACE TO HER COCCYX. IT WAS CHANGED TODAY. SHE WAS COOPERATIVE WITH TAKING HER MEDICATIONS. SHE TOOK THEM ONE PILL AT A TIME BUT DID COMPLAIN AND TOOK THEM WITH NURSE ASSIST. SHE IS NOT NECUTRE THICKENED LIQUIDS.
--- NOTE | 2020-04-02 10:52 | NUR ---
WOUND CARE F/U ASSESS SACRAL WOUND W/ DOUGHNUT MACHINE OPERATOR TRACEY, WOUND HEALING, NO DRAINAGE, NO S/S INFECTION, INCONT AT TIMES, COOPERATIVE, SEE PROCESS INTERVENTIONS FOR WOUND DETAILS, REMAINS ON LOW AIR LOSS PUMP TO BED, RECOMMEND WAFFLE SEAT CUSHION WHEN IN CHAIR RECOMMENDATIONS; CONT CURRENT POC, BARRIER CREAM AND BORDER FOAM DRSG, PRESSURE RELIEF, OFF LOADING, NOT SITTING LONGER THAN 2 HOURS PERIODS, WAFFLE SEAT CUSHION WHEN IN CHAIR DOUGHNUT MACHINE OPERATOR AWARE
[2020-04-02 20:45] VITALS: BP 118/78
--- NOTE | 2020-04-03 01:58 | NUR ---
PT WAS OBSERVED LYING ON HER BED WATCHING TV AT SHIFT CHANGE.PT C/O PAIN ON HER L HIP,MANAGED WITH MED.PT REPOSITIONED WHILE IN BED,REF SOMETIMES EDUCATION GIVEN.PT INCONT,BARRIER CREAM WITH EACH INCONT.MEDS CRUSHED IN PUDDING AND THICKENED LIQUID,LIBBY WELL.LOW AIT LOSS MATTRESS IN PLACE.MELATONIN AND XANAX GIVEN FOR SLEEP AND ANXIETY.PT SLEEPING AT THIS TIME.FALL PRECAUTIONS IN PLACE,CALL LIGHT WITHIN REACH.
[2020-04-03 08:00] VITALS: BP 127/81
--- NOTE | 2020-04-03 13:15 | NUR ---
team meeting, recommendation: 3 steps into home. re team. encourage her to cont therapy. milena lopez seeing rt hallucination. she cont to have hip pain.
--- NOTE | 2020-04-03 15:59 | NUR ---
ASSUMED CARE THIS AFTERNOON AFTER WRITTEN REPORT RECEIVED. PT C/O PAIN AND WAS GIVEN HYDROCODONE, WHICH COMPLETELY RELIEVED HER PAIN. PT HAS BEEN SITTING IN WC WITH BESIDE HER, AND REQUESTED SALAD. PER ABDULLAHI IN CHLORINATION OPERATOR, PT IS NOT SAFE TO ATTEMPT THIS UNTIL AFTER HER VIDEO SWALLOW TEST TOMORROW. THIS INFO WAS GIVEN TO THE PATIENT AND .
[2020-04-03 18:48] VITALS: BP 127/85
[2020-04-03 19:25] VITALS: BP 141/47
--- NOTE | 2020-04-04 04:09 | NUR ---
PT ALERT/CONFUSED AND FORGETABLE.PT C/O PAIN ON HER L HIP,MANAGED WITH MED.MEDS WHOLE IN APPLESAUCE.PT WAS REPOSITIONED WHILE IN BED.PT INCONT, CORINA CARE AND BARRIER CREAM WITH EACH INCONTINENCE.OPTI FOAM TO HER SACRUM.PT'S SPOUSE CALLED TO CHECK ON PT,WAS UPDATED ON HER CONDITION.PT SLEEPING ON HER BED AT THIS TIME.FALL PRECAUTIONS IN PLACE,CALL LIGHT WITHIN REACH.
--- NOTE | 2020-04-04 09:50 | NUR ---
PT LYING IN BED FLAT ON RT SIDE BEGGING FOR PAIN TO GO AWAY. PT HAS PAIN TO LEFT SACRUM OF 7 ON 1-10 SCALE. PT LUNGS CLEAR. PT STATED SHE WAS ALSO HUNGRY. PT NEEDS MEDS CRUSHED. CALLED PHARMACY TO GET NON-CRUSHED MEDS CHANGED. PT TOLERATED THICKEN LIQUIDS. PT LIKES GRAHNM CRACKERS AND PEANUT BUTTER TOGETHER. ADM HYDROCODONE 5MG PO FOR PAIN. PT NEEDS TO SIT UP 90 DEGREES FOR SWALLOWING.
--- NOTE | 2020-04-04 10:04 | NUR ---
WOUND CARE F/U RESTING IN BED, COOPERATIVE, PRESSURE INJURY SACRAL AREA ALMOST HEALED, NO S/S INFECTION, NO DRAINAGE, R BUTTOCK WOUND REMAINS HEALED, SEE PROCESS INTERVENTION FOR WOUND DETAILS, LOW AIR LOSS PUMP STILL ON BED, RECOMMEND WAFFLE SEAT CUSHION WHEN IN CHAIR, PHOTO TAKEN RECOMMENDATIONS CONT CURRENT POC OF MOISTURE BARRIER AND BORDER FOAM DRSG DAILY AND PRN, ENCOURAGED TO NOT SIT LONG PERIODS, PRESSURE RELIEF, OFF LOADING DIRECTOR OF OPERATIONS SUPPORT AWARE
--- NOTE | 2020-04-04 15:23 | NUR ---
PT DID EAT A SALAD WITH DRESSING AND TOLERATED WELL. AT BEDSIDE.
--- NOTE | 2020-04-04 16:20 | NUR ---
ADM HYDROCODONE 5MG PO FOR PAIN TO BACK. HERE SITTING WITH PATIENT IN DINING ROOM.
[2020-04-04 19:33] VITALS: BP 126/83
--- NOTE | 2020-04-05 06:02 | NUR ---
Pt oriented to person. Confused. Forgetful. Pt took meds crushed in applesauce. Protonix given whole as its an ER. Pt's called last night for updates. Pt's informed that pt had taken meds as well as snacks as she complained of being hungry. Pt's informed that pt took melatonin for sleep. Pt's voiced concern that "it will rather make her sleep longer". Pt however slept about only 2 hours this shift. Pt was incontinent x1 this shift. Pt was up x1 assist to the commode. Pt very tensed and shaky with ambulation. Pt's called again this am to check in on pt. Pt's informed that pt did not sleep much. Pt's instructs nursing to "make a note for pt to get something stronger for sleep. So that shecan be able to participate better with therapy". Pt's voiced that pt have not been sleeping much, pt averages about 4-5 hours per night per pt's . Fall precaution in place. CAll light within reach. Will continue to monitor.
[2020-04-05 06:23] LABS: ABSOLUTE NEUTROPHILS 6.3 thou/uL (1.4-8.2); BASOPHILS 0.2 % (0.0-2.0); EOSINOPHILS 0.1 % (0.0-3.0); HEMATOCRIT 26.2 % (37.0-47.0); HEMOGLOBIN 8.8 gm/dL (12.0-15.0); LYMPHOCYTES 20.8 % (24.0-44.0); MCH 33.8 pg (26.0-34.0); MCHC 33.7 g/dL (28.0-37.0); MCV 100.2 fL (80.0-100.0); MONOCYTES 6.8 % (1.0-8.0); PLATELET COUNT 328 thou/uL (150-400); POLYS 72.1 % (36.0-66.0); RBC 2.61 mil/uL (4.20-5.00); RDW 20.5 % (10.5-14.5); WBC 8.8 thou/uL (4.0-11.0)
[2020-04-05 06:46] LABS: CALCIUM 9.3 mg/dL (8.5-10.1); CREATININE 0.6 mg/dL (0.6-1.0); MAGNESIUM 1.3 mg/dL (1.8-2.4); POTASSIUM 3.8 mmol/L (3.5-5.1)
[2020-04-05 08:00] VITALS: BP 117/85
--- NOTE | 2020-04-05 10:54 | NUR ---
ASSUMED CARE AT 0700. PATIENT IS ALERT AND ORIENTEDX1 TO PEROSN. PATIENT THINKS SHE IS IN ANOTHER HOSPITAL LUNGS ARE CLEAR AND DEMINISHED. ABD IS SOFT WITH BSX4. UP TO THE BSC T0 VOID DINAH COLORED URINE. UP IN THE W/C AND OUT TO THE DINING ROOM. C/O LEFT HIP PAIN. MEDICATED WITH PRN PAIN MED AND APPLIED PAIN PATCH TO THE LEFT HIP. FALL AND SAFETY PROTOCOLS IN PLACE. C/O PAIN IN HER LEFT HIP . MEDICATED ABOVE. CONTINUES TO PROGESS SLOWLY TOWARDS D/C GOALS. WILL CONTINUE TO MONITER.
[2020-04-05 22:12] VITALS: BP 128/87
--- NOTE | 2020-04-06 04:48 | NUR ---
ASSUMED CARE OF PT AT 1930 ON 04/05/20. PT IS A&O TO SELF & YEAR. IS ON ROOM AIR. IS STALBE. REPORTS PAIN WITH MOVEMENT IN LEFT HIP & ACH IN ABD. THERAPUETIC TECHNIQUES USED FOR PAIN MANAGEMENT & OFFERED PAIN MED. SPOUSE WAS AT BEDSIDE UPON COMING ON SHIFT. APPEARED CONCERNED ABOUT PT'S BOWELS, SLEEPING PATTERN, & MENTAL STATUS. THIS NURSE SPOKE WITH SPOUSE & PT AT BEDSIDE WE DISCUSSED THE PT'S MEDICATION (STOOL SOFTNER & SEROQUEL). SPOUSE CALLED 2X AFTER LEAVING TO CHECK UP PT. UPDATE OF PT STATUS WAS PROVIDED. THE PT FELL ASLEEP SHORTLY AFTER SPEAKING WITH SPOUSE A LITTLE AFTER MIDNIGHT. MEDS WERE GIVEN LATER THAN USUAL D/T AN ADMISSION. LABS & VITALS REVIEWED. PT IS UP WITH 1-2 ASSIST, GB TO BSC. FALL PRECAUTIONS & HOURLY ROUNDING CONTINUED THIS SHIFT. PT IS ON NECTAR THICK FLUIDS. NICOTINE PATCH ON RIGHT SHOULDER. IS INCONTINENT AT TIMES. IS CURRENTLY SLEEPING. CALL LIGHT WITHIN REACH. WILL CONTINUE TO MONITOR.
[2020-04-06 08:00] VITALS: BP 105/74
--- NOTE | 2020-04-06 10:28 | NUR ---
WOUND CARE F/U SACRAL WOUND HEALING, NO OPEN AREAS, NO DRAINAGE, NO S/S INFECTION, SPOUSE AT BS, COOPERATIVE, ENCOURAGED TO NOT SIT LONG PERIODS AND ON WAFFLE SEAT CUSHION WHEN IN CHAIR OR ON PILLOW, LOW AIR LOSS PUMP REMAINS ON BED, SEE PROCESS INTERVENTION FOR WOUND DETAILS RECOMMENDATIONS CONT MOISTURE BARRIER CREAM AND BORDER FOAM DRSG MARYSOL SINCE PT SO THIN, AT RISK FOR SKIN BREAKING DOWN AGAIN OFFICE SERVICE COORDINATOR AWARE
--- NOTE | 2020-04-06 15:30 | H ---
[facility] [place] [address] HISTORY AND PHYSICAL Name: ALLAN PRYOR Room #: 515-P [facility] IN M.R.#: [id number] Admission: 03/28/20 Attend Phys: Dimitrios Reno MD Discharge: Date of : 56 Report #: [id number] THIS REPORT FOR: cc: DANIEL - Family physician unknown DANIEL - Family physician unknown Dimitrios Reno MD ~ CC: Dimitrios SANCHEZ unknown DATE OF SERVICE: 03/28/2020 HISTORY AND PHYSICAL AND POST-ADMISSION PHYSICIAN EVALUATION HISTORY OF PRESENT ILLNESS: The patient is a 59-year-old white female who was originally admitted on 03/02/2020 with poor appetite, nausea, occasional vomiting, and dry heaving. She was noted to have critical hypokalemia and hypomagnesemia. She was noted to have a medical history of nonischemic cardiomyopathy with left ventricular ejection fraction of 20-25% with a history of cardiac arrest, status post polymorphic ventricular tachycardia in the setting of markedly reduced magnesium, hypertension, carotid arterial disease, mild valvular insufficiency, history of lung nodules and history of tobacco abuse. The patient was originally admitted on 03/02/2020 secondary to weight loss x 3 weeks with associated nausea and vomiting. She had a cardiac arrest on 03/05/2020 noted to be pulseless and compressions were started. CPR was initiated for 3 minutes. Potassium was found to be 6.2. She was intubated and transferred to the ICU. Noted to be on the ventilator for 15 days. Pulmonary Medicine was closely involved. She had bilateral infiltrates, which have resolved. She was treated for cardiogenic pulmonary edema. COVID-19 was negative. She was noted to have significant encephalopathy with Neurology involved and thought to have a hypoxic encephalopathy superimposed on prior chronic alcoholism/alcoholic encephalopathy. Neurology seems rather guarded in their prognosis and indicated with time she may improve some, but it is difficult to predict. The patient has some ataxia noted with upper extremity finger to nose. Mentation was noted to be very poor. She has had a marked decline in her overall function and has now been admitted for acute in-hospital inpatient rehabilitation. PAST MEDICAL HISTORY: Severe diverticulitis in the past with need for bowel resection, colostomy, colostomy reversal. She has had bowel obstructions, apparently has had over a half a dozen abdominal surgeries. She had a cardiac arrest x 2 in the past, apparently occurred after laparoscopic repair of ventral hernia 2014, history of hypertension and carotid stenosis. She had a prior left hip repair that was causing her pain and the plan was to have a hip replacement by Orthopedics before the COVID pandemic came about. [address] [address] HISTORY AND PHYSICAL Name: ALLAN PRYOR Room #: 515-P [facility] IN ..#: [id number] Admission: 03/28/20 Attend Phys: Dimitrios Reno MD Discharge: Date of : 56 Report #: [id number] HABITS: She was a previous current every day smoker of cigarettes. Alcohol use was noted to be on special occasions, although there is note from Neurology of a history of chronic ETOH abuse. MEDICATIONS: Please see the full medication listing. ALLERGIES: BEE STINGS AND MORPHINE. SOCIAL HISTORY: Lives in a house with her , was modified independent with a front-wheeled walker, had some ongoing pain involving that left hip as noted above. There are 3 steps in and then she can stay in one floor. is supportive and can be of assist. REVIEW OF SYSTEMS: Did not offer any current complaints of chest pain, shortness of breath or abdominal discomfort. PHYSICAL EXAMINATION: GENERAL: The patient was examined later yesterday. She was alert. VITAL SIGNS: Temperature 98.2, pulse 81, respirations 16, and blood pressure 105/62. NEUROLOGIC: She had very limited verbalizations, could fix and follow up with me and seemed to be able to follow some basic 1 step commands, although with a definite delay. She was unable to tell me where she was, but she could tell me her last name when asked. She was unable to name a simple object, but when I told her it was a pen, she was able to say pen for me, although with some other nonsensical speech. Again, significant delay looks towards her and minimal verbalizations overall. EOMs appeared intact. I could not detect any obvious nystagmus. HEENT: Facies appeared symmetric. CHEST: Sounded clear. CARDIOVASCULAR: Regular rate and rhythm. ABDOMEN: Bowel sounds positive, nontender. She is very slender to the point of almost cachectic. Her weight is only 87.4 pounds. GENITOURINARY AND RECTAL: Deferred. EXTREMITIES: Functional range of motion of the upper extremities, strength is probably grade 3 to 3+/5. She tends to favor the left hip some, which is a premorbid problem. She has reasonable range of motion, strength is probably a grade 3 to 3+/5, right lower extremity functional range of motion, strength is probably a 3 to 3+/5. No focal calf swelling, noted to have ataxic truncal and attempted sitting at edge of bed. Sit to stand is max assist with retropulsion, pivot feet during attempted to transfer, bed mobility grooming are max assist. She has problems following directions. ASSESSMENT: A 59-year-old white female with the following problem list: 1. 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 [facility] [place] [address] HISTORY AND PHYSICAL Name: ALLAN PRYOR Room #: 515-P [facility] IN M.R.#: [id number] Admission: 03/28/20 Attend Phys: Dimitrios Reno MD Discharge: Date of : 56 Report #: [id number] 2. Hypoxic encephalopathy. 3. Status post cardiac arrest, rhythm was bradycardia and asystole. 4. Acute hypoxic respiratory failure, was ventilated on a mechanical ventilator for 15 days in the Intensive Care Unit. 5. Bilateral infiltrates, which have improved, resolved. 6. History of multiple prior bowel surgeries. 7. Chronic recurrent nausea and vomiting for the past 2 years, pancreatic pseudocysts of undetermined etiology. 8. History of alcohol abuse. 9. Malnutrition with weight loss. 10. Peripheral neuropathy. 11. Depression. 12. History of seizure disorder. 13. Thrombocytosis. Hematology has been involved. Platelets are down to 532 from a high of 584. 14. Elevated TSH, note that will need to follow up with Endocrinology. PLAN: The patient has been admitted for acute in-hospital inpatient rehabilitation. From a postadmission physician evaluation perspective, there are no relevant changes since the preadmission screening. Please see the above review of prior and current medical and functional conditions and comorbidities. Please see the patient's previous and current functional status. As far as risk of complications, the patient has multiple medical comorbidities as noted above. We will have the multiple fashion consultant selling physicians continue to follow, although the patient is on the acute rehab parker. Initial plan of care involves the interdisciplinary acute inpatient rehabilitation program. Measurable functional goals would be to try and improve with basic transfers, mobility, ADLs to try to get to the point where she can return back home with her . Prognosis is reasonably good with estimated length of stay probably at least 2-3 weeks pending progress. She is at a lower functional level. is very supportive. Potential barriers would include her multiple medical comorbidities and decreased functional status. The patient meets diagnostic criteria for an acute in-hospital inpatient rehabilitation stay. She meets the medical necessity criteria and we will have the multiple fashion consultant selling physicians continue to follow. She does have the tolerance for therapies and has appropriate discharge goals back to the home setting. <ELECTRONICALLY SIGNED> By: Dimitrios Reno MD 04/06/20 1530 [id number] [id number] Dimitrios Reno MD /nt
--- NOTE | 2020-04-07 04:45 | NUR ---
Assumed care on 04/06/20, awake alert and oriented x3 to person, time and place. Asks apropriate questions regarding medications. Cooperated with assessment and medication administration. VSS, Heart rate 112, rhythm regular. Lung sounds auscultated bilateraly. Afebrile. Hx L Hip repair 02/25/19, Lodocain topical patch on L hip, removed @ 2300. Incontinent of bladder x2, incontinent care provided. [place] thick beverages provided, drinks well and good appetite for applesauce and yogart. Also eats grahm crackers and peanut butter. PRN Hydrocodone/APAP 5/325 @ 21:15 for hip pain. PRN alprazolam 0.5 provided @ 23:45 for anxiety. After that, patient relaxed and was able to sleep, noted to have eyes closed, respirations even and unlabored. Bed in low position, bed alarm set.
--- NOTE | 2020-04-07 09:19 | NUR ---
PT LYING IN BED THIS AM ON LEFT SIDE. PT THRASHING IN BED AND MOANING IN PAIN. PT DOES LIE BACK AND PULLS LEGS UP. PT DIDN'T HAVE A GOAL TODAY. PT HAS APHASIC SPEECH. PT LUNGS CLEAR. PT UP WITH W/C X1-2 ASSIST. PT HAS HEALED WOUNDS TO COCCYX. PT HAS SPECIAL MATTRESS. PT TAKING MEDS CRUSHED IN OATMEAL THIS AM AND NECTOR THICK LIQUIDS. ADM HYDROCODONE 5MG PO FOR PAIN TO LEFT HIP.
[2020-04-07 09:30] VITALS: BP 102/71
--- NOTE | 2020-04-07 12:30 | NUR ---
PT VICKIE HERE AND WANTING TO KNOW ABOUT HER PAIN CONTROL. HE STATED THAT SHE HAD A HIP REPLACEMENT AND THE HARDWARE IS LOOSE AND SHE WAS GOING BACK TO HAVE IT REPLACED THE THE COVID HIT. PT IS MOANING. WILL CALL
--- NOTE | 2020-04-07 12:40 | NUR ---
DR. PRATT HERE TO SEE PT AND UPDATE PAIN MEDICATION.
--- NOTE | 2020-04-07 16:28 | NUR ---
ASSUMED CARE OF PT AT 1400. PT IS A&OX4. TACHYCARDIA AND ELEVATED MAP NOTED. PT REPORTS PAIN TO LEFT HIP THAT HAS NOT BEEN CONTROLLED. PAIN MEDICATION ORDERS ADJUSTED BY PRIOR NURSE AND ADMINISTERED AFTER REPORT, PT SLEEPING DURING F/U. REVIEWED PRIOR NURSES ASSESSMENT, NO NOTED CHANGES AT THIS TIME. PT REPORTED ANXIETY AND WAS GIVEN PRN ANXIETY MEDICATION, PT REPORTED FEELING MORE RELAXED DURING F/U. AT THE BEDSIDE. PT REPORTED INCREASED APPETITE AND REQUESTED SEVERAL SNACKS. FALL PRECAUTIONS IN PLACE AND NURSING WILL CONTINUE TO MONITOR.
[2020-04-07 19:05] VITALS: BP 129/92
--- NOTE | 2020-04-08 02:56 | NUR ---
PATIENT'S NOTED TO RN IMMEDIATELY FOLLOWING SHIFT CHANGE REPORT THAT PT'S URINE WAS VERY FOUL SMELLING. HE QUESTIONED IF THIS COULD BE ONE OF THE REASONS WHY SHE HAS LOWER ABDOMINAL PAIN. THIS WILL BE NOTED IN END OF SHIFT REPORT TO ASK MD ON AM ROUNDS IF A UA IS INDICATED. LATER IN EVENING PT VOIDED CONTINENTY AND INCONT AND RN ALSO NOTED FOUL URINE ODOR. PT WAS AGITATED DURING THE WHOLE EVENING WITH ABD PAIN AND WAS MEDICATED TWICE WITH HYDROCODONE AND IN PHARMACEUTICAL SCIENTIST WAS GIVEN XANAX FOR AGITATION. PT HAS CALMED NOW AND IS SLEEPING ON HER SIDE.
[2020-04-08 09:00] VITALS: BP 145/102
[2020-04-08 11:25] LABS: URINE BILIRUBIN NEGATIVE (Negative); URINE BLOOD NEGATIVE (Negative); URINE CLARITY SL CLOUDY; URINE COLOR YELLOW; URINE GLUCOSE-RANDOM* NEGATIVE (Negative); URINE KETONES NEGATIVE (Negative); URINE LEUKOCYTES-REFLEX TRACE (Negative); URINE PROTEIN (DIPSTICK) NEGATIVE (Negative); URINE SPECIFIC GRAVITY 1.015 (1.005-1.035); URINE UROBILINOGEN 0.2 E.U./dl (0.2-1.0)
[2020-04-08 11:26] LABS: URINE NITRITE-REFLEX POSITIVE (Negative)
[2020-04-08 12:01] LABS: BACTERIA-REFLEX >30 Many /HPF (None Seen); CASTS None Seen /LPF (None Seen); SQUAMOUS >10 Many /LPF (0-3); URINE RBC 0-2 Rare /HPF (0-2); URINE WBC-REFLEX >25 Many /HPF (0-5)
[2020-04-08 12:02] LABS: CRYSTALS None Seen /LPF (None Seen); MUCUS 0-3 Light strn/LPF (None Seen)
--- NOTE | 2020-04-08 15:11 | NUR ---
RESTLESS AT TIMES TODAY-REPORTING LEFT HIP,KNEE AND ABDOMINAL PAIN-NORCO 5/325 GIVEN AT [phone] WITH NOTED/REPORTED DECREASE IN PAIN. AT BEDSIDE-GOOD APPETITE AND FREQUENTLY REQUESTS ADDITIONAL SNACKS AND FOOD-EATING 100 PERCENT OF MEALS OFFERED, UA COLLECTED AND SENT TO LAB AT APPROX. 1000. HAS REMAINED CONTINENT WITH Q 2 HR TOILETING REGIME-MD NOTIFIED RE CONTINUED ABD PAIN-OCCASSIONAL BURPING AND HYPERACTIVE BS-ORDER RECEIVED FOR SIMETHACONE WITH NOTED/REPORTED DECREASED ABD. DISCOMFORT. DRESSING CHANGE PER ORDER TO COCYZ-DRESSING APPEARS,C/D/I AT THIS TIME. REPOSITIONED Q 2 HRS PER ORDER.
--- NOTE | 2020-04-08 15:17 | NUR ---
EKG COMPLETED AT 1430-DR. DURAN NOTIFIED OF RESULTS-RESTING QUIETLY IN BED AT THIS TIME
--- NOTE | 2020-04-08 16:58 | HC ---
[facility] [place] [address] [place] [address] CONSULTATION Name: ALLAN PRYOR Room #: 515-P ADM IN M.R.#: [id number] Admission: 03/28/20 Attend Phys: Dimitrios Reno MD Discharge: Date of : 56 Report #: [id number] THIS REPORT FOR: cc: DANIEL - Family physician unknown DANIEL - Family physician unknown Addy Collado PhD ~ CC: Dimitrios SANCHEZ unknown DATE OF SERVICE: 03/31/2020 NEUROBEHAVIORAL STATUS EXAM ATTENDING PHYSICIAN: Dimitrios Reno M.D. BIOLOGY PROFESSOR: Addy Collado, Ph.D. CLINICAL PRESENTATION: The patient is a 59-year-old white female admitted to the rehabilitation unit for a comprehensive inpatient rehabilitation program. She was originally admitted to the hospital on 03/02/2020 with poor appetite, nausea, occasional vomiting and dry heaving. The patient was diagnosed with hypokalemia and hypomagnesemia. Her medical history includes nonischemic cardiomyopathy with a left ventricular ejection fraction of 20-25%. She has a history of cardiac arrest and is status post polymorphic ventricular tachycardia in the setting of markedly reduced magnesium, hypertension, carotid artery disease, mild valvular insufficiency and a history of lung nodules with history of tobacco abuse. 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 A complete description of her medical condition and history along with medications can be found in her medical record. Neuropsychological consultation was requested to provide assistance in the assessment of cognitive and emotional status and to provide recommendations and services. Prior to this medical event, she was living with the assistance of her in their home. This is her second marriage. She has 2 children. She has a longstanding history of treatment for depression. The patient had broken her [facility] [address] [place] [address] CONSULTATION Name: ALLAN PRYOR Room #: 515-P [facility] IN .R.#: [id number] Admission: 03/28/20 Attend Phys: Dimitrios Reno MD Discharge: Date of : 56 Report #: [id number] hip in 02/2019 and that has contributed to ongoing pain management and mobility issues. Her is very supportive. 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 Significant tobacco and alcohol abuse was reported prior to this most recent medical event. TECHNIQUES UTILIZED: Clinical interview, review of medical records, staff consultation and behavioral observation, family interview -- , and a mini mental status exam-2 brief version. EXAMINATION FINDINGS: The patient was alert and cooperative during the assessment. However, she presents with disorientation and confusion. She was unable to accurately describe events surrounding her admission and is amnestic for much of her hospitalization. Her appetite is described as poor with very poor oral intake. The extent of cognitive disorder is described by her as severe in comparison to preadmission level of functioning. However, she had a deterioration in functioning for at least several weeks before this most recent hospitalization. Her performance on the MMSE-2 brief version was 3/16, which is extremely low. She was 2/3 for initial registration. The patient was 1/5 for orientation to time, 0/[address] and 0/3 for immediate recall of 3 items after a brief time delay and distraction. The patient was 2/2 for naming. Her level of orientation is inconsistent. DIAGNOSTIC IMPRESSION: Delirium, mixed level of activity -- acute. Neurocognitive disorder -- extent to be determined. Cognition is severely impaired currently as it is affected by delirium. Unspecified depressive disorder by history. RECOMMENDATIONS: Psychiatric consultation may be of benefit to assist in the use of medication for depression and possibly improving appetite, e.g., Remeron. The patient will need to discontinue tobacco and alcohol upon discharge. Family education will be necessary as to the extent of her cognitive disorder and degree of environmental supervision and support that will be necessary. A followup neuropsychological exam approximately 3 months post-discharge to assist in the clarification of cognitive functioning. Current environmental supports should include frequent orientation to person, place and time along with the purpose of therapies and treatment. The patient has voiced a desire to leave the hospital for discharge. However, she lacks mental capacity at this time for medical decision making. I will continue to follow for [facility] [address] [place] [address] CONSULTATION Name: ALLAN PRYOR Room #: 515-P [facility] IN M.R.#: [id number] Admission: 03/28/20 Attend Phys: Dimitrios Reno MD Discharge: Date of : 56 Report #: [id number] neuropsych services as needed. Thank you very much for allowing me to provide the consultation on this patient. <ELECTRONICALLY SIGNED> By: Addy Collado, PhD 04/08/20 1658 1425 1737 Addy Collado, PhD /nt
[2020-04-08 20:25] VITALS: BP 152/99
--- NOTE | 2020-04-09 02:58 | NUR ---
ASSESSMENT COMPLETED AT THE START OF SHIFT . PT ALERT TO SELF AND TIME/MONTH. SHE THOUGHT SHE WAS AT [facility]. PT IS VERY FRAIL. REQUIRES MAX ASSIST TO TRANSFER MARYSOL DUE TO POOR COORDINATION. SHE VOID PER BSC. SHE ALSO HAD ONE INCONTINENT EPISODE. PT TOOK ALL HS MEDS CRUSHED IN APPLE SAUCE AND NECTAR THICK WATER. PT THERAFTER WAS RESTLESS FOR A WHILE BUT WAS ABLE TO FALL ASLEEP FROM AROUND 9.30 PM TILL ABOUT 0200HRS. AT THIS TIME, PT IS AGAIN RESTLESS AND C/O BACKPAIN WELL LEFT HIP PAIN.WILL GIVE PAIN MEDS.PT IS ALSO ASKING FOR WATER. SHE IS ON ROOM AIR-NO SIGNS OF DISTRESS. AFEBRILE. FOAM DRG TO COCCYX.FALL PREC IN PLACE. WILL CONTINUE WITH POC TILL EOS.
[2020-04-09 06:24] LABS: ABSOLUTE NEUTROPHILS 5.7 thou/uL (1.4-8.2); BASOPHILS 0.2 % (0.0-2.0); EOSINOPHILS 0.3 % (0.0-3.0); HEMATOCRIT 26.9 % (37.0-47.0); HEMOGLOBIN 9.2 gm/dL (12.0-15.0); LYMPHOCYTES 24.2 % (24.0-44.0); MCH 34.4 pg (26.0-34.0); MCHC 34.3 g/dL (28.0-37.0); MCV 100.3 fL (80.0-100.0); PLATELET COUNT 325 thou/uL (150-400); POLYS 67.3 % (36.0-66.0); RBC 2.68 mil/uL (4.20-5.00); RDW 20.6 % (10.5-14.5); WBC 8.5 thou/uL (4.0-11.0)
[2020-04-09 06:35] LABS: CALCIUM 9.5 mg/dL (8.5-10.1); CREATININE 0.6 mg/dL (0.6-1.0); MAGNESIUM 1.6 mg/dL (1.8-2.4); POTASSIUM 3.9 mmol/L (3.5-5.1)
--- NOTE | 2020-04-09 08:18 | EKG ---
[facility] [place] [place] [address] ELECTROCARDIOGRAM REPORT Name: ALLAN PRYOR Room #: 515- ADM IN M.R.#: [id number] Admission: 03/28/20 Attend Phys: Dimitrios Reno MD Discharge: Date of : 56 Report #: [id number] THIS REPORT FOR: cc: FAM - Family physician unknown FAM - Family physician unknown Girish Yu MD [facility] THIS REPORT FOR: //name// [facility] Test Date: 2020-04-08 Test Time: 14:51:36 Pat Name: ALLAN PRYOR Department: Room: [facility] Gender: F E Business Manager: MARY : 1960 Requested By: Lewis Herrera Order Number: [id number] MD: Girish Yu Measurements Intervals [place] Rate: 117 P: 53 OR: 130 QRS: 20 QRSD: 74 T: 36 QT: 312 QTc: 436 Interpretive Statements Sinus tachycardia Low voltage Compared to ECG 03/06/2020 08:23:33 Low QRS voltage now present Myocardial infarct finding no longer present Electronically Signed On 04-09-2020 8:17:54 CDT by Girish Yu [email or web address] <ELECTRONICALLY SIGNED> By: Girish Yu MD, [facility] 04/09/20 0817 1451 1451 Girish Yu MD, [facility] /EPI
[2020-04-09 08:29] VITALS: BP 133/98
--- NOTE | 2020-04-09 10:18 | NUR ---
WOUND CARE F/U ASSESSED SACRAL WOUND W/ POLICE PILOT JUAN RAMON, HEALING, NO S/S INFECTION,NO DRAINAGE, COOPERATIVE, ENCOURAGED TO NOT SIT LONG PERIODS AND ON WAFFLE SEAT CUSHION OR PILLOW, SPOUSE AT BS RECOMMENDATIONS CONT POC W/ MOISTURE BARRIER CREAM AND BORDER FOAM, PRESSURE RELIEF, OFF LOADING, SITTING NO LONGER THAN 2 HOURS PERIODS AT A TIME POLICE PILOT BERRY
--- NOTE | 2020-04-09 19:35 | NUR ---
PATIENT MEDICATED FOR LT HIP PAIN AT 1336 WITH GOOD RELIEF, AND FOR AGITATION AT 1655. PT HAD LARGE HARD BM THAT REQUIRED MANUAL DISIMPACTION. PATIENT'S NOTED THAT SHE TAKES MIRALAX AT HOME AND THIS TYPICALLY WORKS WELL FOR HER. WILL ADD TO END OF SHIFT REPORT. PT VOIDED MOSTLY CONTINENTLY THROUGHOUT THE DAY. REPORT GIVEN TO ONCOMING NURSE AND PT RESTING IN BED WITH AT BEDSIDE.
[2020-04-09 19:40] VITALS: BP 134/94
--- NOTE | 2020-04-09 19:41 | NUR ---
PATIENT WAS MOVED TO ROOM 504 DUE TO AGITATION AT NIGHT, AND THE NEED FOR A LARGE BR. IS AWARE AND SUPPORTS THE MOVE
--- NOTE | 2020-04-10 01:01 | NUR ---
PATIENT ASSESSED AND IS ALERT X1. SKIN WARM AND DRY. RESP EVEN AND UNLABORED. UP WITH MOD/MAX WITH GAIT BELT. ASSIST TO BSC. AT BEDSIDE AND CALL AT 10PM TO CHECK ON HER. GETS VERY ANXIOUS AT TIMES. TAKEN ALL MEDICATION WELL. NICADERM PATCH REMOVED BY PATIENT. HAS A STAGE 2 ON COCCYX/ ISEAL AREA. SHE PULLED OFF HER BORDER FOAM AND THREW IT ON FLOOR. HAS A GOOD APPETITE. HOB ELEVATED DURING MED ADMINISTRATION AND DRINKING THIN LIQUIDS. WATER AND LIQUIDS IN PREVAIL CUP. HAD A BM TODAY. PAIN MEDIATION ASKED BY BEFORE HE LEFT AT 7PM. RN GAVE PAIN MED BECAUSE SHE ASKED FOR IT. PAIN IN HER BACK AREA. SHE DID GET SOME RELIEF. LESS RESTLESS NOW AT 0000. INBCONT OF URINE DURING THE NIGHT. ON ROOM AIRT. VS STANBBLE. HR 104. AT [facility] A UTI. TAKING ANTIBIOTICS FOR IT. TURNED PER REQUEST, AND STAFF. CONT PLAN OF CARE. ANTIBIOTICS FOR IT.
[2020-04-10 08:00] VITALS: BP 119/73
--- NOTE | 2020-04-10 12:08 | NUR ---
team meeting, recommendation: vendor form started and placed on pt chart. abx for uti. re team with anticipated dc on 04/20/2020. therapy will start training with .
--- NOTE | 2020-04-10 15:12 | NUR ---
ASSUMED CARE OF PT AT 0700. PT IS ALERT AND ORIENTED TO PERSON. PT UP WITH 100% SUPERVISION WITH MEALS. DRESSING TO BUTTOCKS COMPLETED IN AM. PER 'S REQUEST MIRALAX SCHEDULED. PT REPORTS PAIN TO LOW BACK AND LIDOCAINE PATCH APPLIED TO AREA AND PO MEDICAITONS ADMINISTERED. PT HAVING VISUAL HALLUCINATIONS THIS MORNING, REACHING FOR THINGS THAT WERE NOT THERE. FOLLOWING LUNCH ASKED THAT PT BE GIVEN PAIN MEDICATIONS AND ANXIETY MEDICAITONS AT THAT TIME INDICATING THAT THEY WERE AVAILABLE, PT WAS SITTING IN W/C WITHOUT S/S OF PAIN OR ANXIETY AND PT REPORTED SOME PAIN BUT INDICATED THAT SHE WAS COMFORTABLE. DISCUSSED WITH PT AND THAT WE WILL ATTEMPT TO REDUCE USE OF PAIN AND ANXIETY MEDICATIONS IF NOT INDICATED, DUE TO ASKING THAT PT BE GIVEN THESE MEDICATIONS AROUND THE CLOCK WHEN AVAILABLE. EXPRESSED UNDERSTANDING. NURSING WILL CONTINUE TO MONITOR PTS PAIN AND ANXIETY AND MEDICATE NEEDED. ALSO EXPRESSED DESIRE FOR PT TO TAKE A NAP UNTIL DINNER DUE TO PT HAVING NOT SLEPT WELL OVERNIGHT. EXPLAINED TO THAT PT CAN TAKE A NAP, BUT THAT DUE TO POOR SLEEP AT NIGHT A NAP MAY CAUSE FURTHER ISSUES WITH SLEEP AT NIGHT. FALL PRECAUTIONS IN PLACE AND NURSING WILL CONTINUE TO MONITOR.
[2020-04-10 19:04] VITALS: BP 119/74
--- NOTE | 2020-04-11 01:17 | NUR ---
ASSESSED AT START OF SHIFT. PT A&OX1 TO PERSON RESTLESS DURING ASSESSEMENT AND ASKED FOR PAIN MEDS. HYDROCODONE GIVEN WITH ALL EVENING MEDICATION PT LIBBY IT WELL. PT SLEPT WELL TILL MIDNIGHT THEN AWAKE DUE TO INCONTINET, BED PAD CHANGED AND PT FELL BACK TO SLEEP. MIRALAX GIVEN NO BM YET. FALL PREC IN PLACE, FREQ ROUNDING DONE. CALLED EARLIER IN SHIFT TO ASK ABOUT PT THIS NURSE UPDATED HIM. WILL CONT WITH POC TILL EOS.
[2020-04-11 07:42] VITALS: BP 144/103
--- NOTE | 2020-04-11 12:33 | NUR ---
ASSUMED CARES AT 0700. PT ORIENTED TO PERSON ONLY, FORGETFUL AND CONFUSED. C/O LEFT HIP PAIN, PAIN MEDICATION ADMINISTERED NEEDED, LIDOCAINE PATCH PLACED ON LEFT HIP. DBP ELEVATED THIS AM 103, BP LOWERING MEDS ADMINISTERED. BP RECHECKED 93/62, WILL CONTINUE TO MONITOR. PT UP WITH 1 MOD ASSIST, QUES AND HANDS-ON INSTRUCTIONS GIVEN WITH TRANSFERS. PT IN THE DINING AREA FOR MEALS, EATING 90-100% OF HER MEALS. AT THE BEDSIDE. Q1H VISUAL CHECKS. CALL LIGHT WITHIN REACH. FALL PRECAUTIONS IN PLACE
[2020-04-11 20:00] VITALS: BP 140/98
[2020-04-11 20:11] VITALS: BP 140/98
--- NOTE | 2020-04-12 00:31 | NUR ---
PT ASSESSMENT COMPLETED AND VSS. MEDS GIVEN ORDERED AND WELL TOLERATED. FALL PRECAUTIONS IN PLACE. INC OF URINE. UP TO BSC WITH 2 ASST. PT VERY WEAK AND UNABLE TO FOLLOW COMMANDS. ASST WITH FREQUENT REPOSITION. SUPPORTIVE CALLED EARLY IN THE EVENING TO CHECK ON HIS . PT SLEEPING WELL AT THIS TIME. WILL CONTINUE TO MONITOR FREQUENTLY.
[2020-04-12 05:09] VITALS: BP 134/86
[2020-04-12 08:00] VITALS: BP 107/74
--- NOTE | 2020-04-12 14:47 | NUR ---
ASSUMED CARE OF PT AT 0730. PT IS A&O TO SELF. IS CONFUSED & FORGETFULL. IS ON ROOM AIR. IS STABLE. REPORTS PAIN IN LEFT HIP THAT THIS BEING MANAGED WITH ORAL PAIN MEDS & TOPICAL. LIDOCAINE PATCH IN PLACE. HAS NICOTINE PATCH ON LEFT BACK. IS UP WITH MAX ASSIST OF 1-2, GB, STAND PIVOT. FALL PRECAUTIONS & HOURLY ROUNDING CONTINUED THIS SHIFT. PARTNER AT BEDSIDE. CALL LIGHT WITHIN REACH. WILL CONTINUE TO MONITOR. LABS & VITALS REVIEWED.
--- NOTE | 2020-04-12 21:53 | NUR ---
PT WAS FOUND ON FLOOR IN ROOM BY EPOXY COATINGS INSTALLER. THE SPOUSE WAS AT THE BEDSIDE AND WITNESSED FALL. PT WAS ASSESSED BY THIS NURSE. SHE REPORTED SORENESS TO LEFT EYE WHEN SHE BLINKS HARD. ICE PACK WAS APPLIED TO EYE. VITALS WERE TAKEN BY EPOXY COATINGS INSTALLER. PT WAS RESTING COMFORTABLY. INCIDENT REPORT FILED. MEMBERSHIP SALES ADVISOR, NURSE MAJOR GIFTS DIRECTOR, HOUSE SUP ALL NOTIFIED. ORDERS GIVEN & IMPLEMENTED. THERAPUETIC COMMUNICATION PROVIDED TO PT & SPOUSE. FREQUENT CHECKS. FALL PRECAUTIONS CONTINUED. PT IS RESTING IN BED. CALL LIGHT WITHIN REACH.
[2020-04-13 02:26] VITALS: BP 137/96
--- NOTE | 2020-04-13 05:25 | NUR ---
ASSUMED CARE AT APPROX 1900 EVENING 04/12. PT LYING IN BED WITH HEAD OF BED ELEVATED RESTING WITH SPOUSE AT BEDSIDE. PT AWAKE YET RESTLESS MOVING AROUND IN BED FREQUENTLY. PT IMPULSIVE AND ANXIOUS. PT TOOK HS MEDS WITH APPLESAUCE. PT AWAKE OFF AND ON IN THE NIGHT. BED ALARM ON AND CALL LIGHT IN REACH. WILL CONTINUE TO MONITOR.
--- NOTE | 2020-04-13 08:03 | NUR ---
WOUND CARE F/U ALERT BUT SOME CONFUSION PRESENT, COOPERATIVE, SACRAL WOUND HEALED BUT DUE TO BONY PROMINENCES SUGGEST TO CONT PROTECTIVE CREAM AND BORDER FOAM DRSG FOR PROTECTION, AREA PINK, BLANCHABLE, NO S/S INFECTION, REMAINS ON LOW AIR LOSS PUMP TO BED, SITTING ON PILLOW WHEN IN CHAIR RECOMMENDATIONS CONT LOW AIR LOSS PUMP TO BED, CONT POC, CHANGE DAILY AND PRN, ENCOURAGED TO NOT SIT LONG PERIODS, PRESSURE RELIEF AND OFF LOADING GROUP SUPERVISOR YARD AWARE
--- NOTE | 2020-04-13 09:45 | NUR ---
Assumed care 0700. While helping patient to toilet with gait belt and giving her direction it is apparent that she has great difficulties comprehending what she is to do ie where to place her hand for her optimal help in sitting standing and using the walker. IE she will hold wheelchair when she needs to hold the stationary railing. She gets easily flustered with directions. She needs to have extra time to accomplish tasks. Her conversation is very brief and to the point-short phrases. came to visit.
--- NOTE | 2020-04-13 10:06 | PLAN ---
[facility] [address] [place] [address] REHAB UNIT PLAN OF CARE Name: ALLAN PRYOR Room #: 504-2 ADM IN M.R.#: [id number] Admission: 03/28/20 Attend Phys: Dimitrios Reno MD Discharge: Date of : 56 Report #: [id number] THIS REPORT FOR: //name// CC: Dimitrios Reno [facility] unknown DATE OF SERVICE: 03/30/2020 PROGRESS NOTE AND OVERALL PLAN OF CARE SUBJECTIVE: The patient was seen yesterday morning at the breakfast table. She was in good spirits. Appeared a little more talkative than when I had last seen her. Still with flat affect. Afebrile, vital signs were stable. She will feed herself very slowly, but was demonstrating reasonable coordination with her right upper extremity. I encouraged her as far as trying to continue to eat well to try to increase her overall caloric intake and she is quite emaciated. Transfers are max assist. She did ambulate 2 steps in the parallel bars. Lower body dressing is dependent. Speech therapy has been involved and they are recommending mechanical soft with nectar thickened liquids. They are also assessing her speech and language and she does have severe cognitive deficits with mcowsexb-ar-jzinph expressive deficits and ajwlwwaq-sa-smttbx comprehension deficits. Appreciate Psychiatry's involvement. She will have p.r.n. anxiety medication available. ASSESSMENT: 1. 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 2. Hypoxic encephalopathy. 3. Status post cardiac arrest with bradycardia and asystole. 4. Acute hypoxic respiratory failure, on prolonged mechanical ventilation. 5. Bilateral infiltrates, which have improved/resolved. 6. History of multiple prior bowel surgeries. 7. Chronic recurrent nausea and vomiting for the past 3 years, pancreatic pseudocysts of undetermined etiology. 8. History of alcohol abuse. 9. Malnutrition with weight loss. 10. Peripheral neuropathy. 11. Depression. 12. History of seizure disorder. 13. Thrombocytosis. 14. Elevated TSH. PLAN: The overall plan of care is based on the preadmission screen, post-admission physician evaluation and information gathered from therapy assessments. 1. Estimated length of stay is going to be probably at least 2-3 weeks. She is at a lower level of function. [facility] [address] [place] [address] REHAB UNIT PLAN OF CARE Name: ALLAN PRYOR Room #: 504-2 ADM IN ..#: [id number] Admission: 03/28/20 Attend Phys: Dimitrios Reno MD Discharge: Date of : 56 Report #: [id number] 2. Medical prognosis is reasonably good. 3. Anticipated interventions include the interdisciplinary acute inpatient rehabilitation program. 4. Anticipated functional outcomes would be for the patient to hopefully achieve a level where she can improve her functional mobility and ADLs as well as cognition and swallowing, so that she can get back to the point where she can go back home with assisting her. Hopefully, we can get her up ambulatory with a walker. 5. Discharge destination would be back home with . 6. Expected therapy by discipline includes PT, OT and speech 1 hour per day each five days a week throughout the duration of the acute inpatient rehabilitation stay. <ELECTRONICALLY SIGNED> By: Dimitrios Reno MD 04/13/20 1006 0811 1249 Dimitrios Reno MD /nt
--- NOTE | 2020-04-13 16:00 | NUR ---
in and out of room visiting. No choking noted from consuming meals. She had one formed brown BM. She has been given pain and anxiety medication during this shift.
--- NOTE | 2020-04-13 18:50 | NUR ---
Pt. did not receive her nicotine patch/declined it-it was not scanned. Former patch was not located. Lidocaine patch to left hip area. Assisted with turning/repositioning.
[2020-04-13 21:57] VITALS: BP 131/90
--- NOTE | 2020-04-14 04:11 | NUR ---
assumed care at approx 1900 evening 04/13.pt lying in bed at change of shift dozing off and on. pt somewhat drowsy, confused and restless. pt took hs meds with applesauce crushed. pt incontinent of urine and assist with pad change. pt taking off linen in nighttime shedding clothes and throwing on floor. pt sleeping off and on. bed alarm on and call light in reach. will continue to monitor.
[2020-04-14 08:37] VITALS: BP 134/101
--- NOTE | 2020-04-14 11:26 | NUR ---
ASSUMED CARE AROUN 0830. PT IS ALERT, CONFUSED, RESTLESS. KNOWS SELF. BP HIGH THIS AM. NO COMPLAINTS. TOLERATING DIET. INCONTINENT. TOOK MEDS CRUSHED IN WITOUT ISSUE. PRN PAIN MEDS GIVEN ORDERED. PT AT . PT IS IN WHEELCHAIR WITH ALARM AND SAFETY STRAP. FALL PRECAUTIONS IN PLACE. WILL CONTINUE TO MONITOR
[2020-04-14 17:29] VITALS: BP 106/77
[2020-04-14 19:25] VITALS: BP 109/71
--- NOTE | 2020-04-15 04:12 | NUR ---
ASSUMED ARE FROM DAY SHIFT PT CONFUSED AND INCONITENT OF SOFT BROWN STOOL , PT FOUND WITH STOOL ON HAND AND ARM PT BATHE AND PO MEDICATION OREDERED PT REMAIN RESTLESS THROUGHOUT THE NIGHT, PAIN AND ANXIETY MEDICATION GIVEN PT REQUESTED MEDICATON 'iM FEEL NERVOUS". PT REMAINED CONFUSED AND RESTLESS THROUHGOUT HOURLY ROUNDS . BED ALARM ON FOR SAFETY AND FEQ CHECKS BRANDIE PT UNABLE TO USE CALL LIGHT WHEN NEEDING ASSISTANCE. WILL CONITNUE WITH CURRENT PLAN OF CARE.
[2020-04-15 06:20] LABS: ABSOLUTE NEUTROPHILS 4.7 thou/uL (1.4-8.2); BASOPHILS 0.3 % (0.0-2.0); EOSINOPHILS 0.6 % (0.0-3.0); HEMATOCRIT 31.8 % (37.0-47.0); HEMOGLOBIN 10.7 gm/dL (12.0-15.0); LYMPHOCYTES 26.3 % (24.0-44.0); MCH 34.5 pg (26.0-34.0); MCHC 33.6 g/dL (28.0-37.0); MCV 102.5 fL (80.0-100.0); MONOCYTES 8.9 % (1.0-8.0); PLATELET COUNT 403 thou/uL (150-400); POLYS 63.9 % (36.0-66.0); RDW 20.1 % (10.5-14.5); WBC 7.3 thou/uL (4.0-11.0)
[2020-04-15 07:08] LABS: ALBUMIN 3.2 g/dL (3.4-5.0); CALCIUM 10.1 mg/dL (8.5-10.1); CREATININE 0.6 mg/dL (0.6-1.0); MAGNESIUM 1.8 mg/dL (1.8-2.4); PHOSPHORUS 3.8 mg/dL (2.5-4.9); POTASSIUM 4.1 mmol/L (3.5-5.1); TOTAL BILIRUBIN 0.1 mg/dL (0.2-1.0); TOTAL PROTEIN 7.2 g/dL (6.4-8.2)
[2020-04-15 10:04] VITALS: BP 146/98
--- NOTE | 2020-04-15 11:31 | NUR ---
ASSUMED CARE AT 0700. PATIENT IS ALERT AND ORINETED X1, TO PERSON ONLY. VERY CONFUSED. SEROQUEL WAS INCREASED TO 75MG TO NO AVAIL. PAIIENT LARIOS, PROMOTIONAL MARKETING AGENT ARE EQUAL. LUNGS ARE CLEAR. ABD IS SOFT WITH BS4. PATIENT WAS INCONTINENT OF STOOL ON NOC'S AND PLAYED IN IT. PATIENT WAS INCONTINENT OF URINE. FALL AND SAFETY PROTOCOLS IN PLACE. C/O PAIN. MEDICATED WITH PRN PAIN MED. CONTINUES TO PROGRESS SLOWLY TOWARDS D/C GOALS. UP TO THE DINING ROOM IN W/C FOR MEALS. WILL CONTINUE TO MONITER.
[2020-04-15 21:45] VITALS: BP 137/92
--- NOTE | 2020-04-16 00:31 | NUR ---
PT ALERT AND ORIENTED X 1, CONFUSED. UP TO BSC WITH ASSIST X 2 AT START OF SHIFT. INCONT OF URINE. PT TAKES MEDS CRUSHED IN APPLESAUCE WITHOUT DIFFICULTY. PT C/O PAIN IN LEFT HIP. HYDROCODONE GIVEN ORDERED. XANAX ALSO GIVEN FOR ANXIETY. PT RESTLESS MOST OF THE TIME. HAS SLEPT AT SHORT INTERVALS SO FAR TONIGHT. IMPULSIVE AT TIMES. BED ALARM ON FOR SAFETY. PT CHECKED ON MORE FREQUENTLY THAN HOURLY ROUNDS.
--- NOTE | 2020-04-16 10:51 | NUR ---
WOUND CARE F/U SPOUSE IN ROOM, ASSESSED WOUND W/ ALPINE PATROLLER MONICA, PT COOPERATIVE BUT SOME CONFUSION PRESENT, NO DRSG IN PLACE, WOUND HEALING BUT MORE GABRIEL TODAY, NO S/S INFECTION, ENCOURAGED TO KEEP OFF AREA WHEN IN BED, TURNING, REPOSITIONING SITTING ON PILLOW OR WAFFLE CUSHION WHEN IN CHAIR, LOW AIR LOSS PUMP REMAINS ON BED, SEE PROCESS INTERVENTION FOR WOUND DETAILS RECOMMENDATIONS; CONT POC, ZGUARD W/ BORDER FOAM DRSG, DAILY AND PRN, CONT LOW AIR LOSS PUMP TO BED, OFF LOADING, PRESSURE RELIEF ALPINE PATROLLER AWARE
[2020-04-16 13:31] VITALS: BP 142/90
--- NOTE | 2020-04-16 18:53 | NUR ---
PT A&OX TO SELF AND SOMETIMES SITUATION. VERY COMPULSIVE AT NOC. SPOUSE AT BEDSIDE. DRSG TO SACRAL AREA CHANGED AND IS VERY SMALL. SPEECH AND SPOUSE WITNESSES PT TRYING TO EAT FORMSTONE FITTER AT THE LUNCH TABLE. SPOUSE STATES PT IS NOT SLEEPING AT [facility] AND REQUESTED DR. HERNANDEZ CHANGE MEDS. PAT HAS NOT SLEPT ALL DAY AND ONLY SLEPT 1 HR LAST NOC STATED BY NOC SHIFT. MEDS CHANGED PER DR. HERNANDEZ.
[2020-04-16 20:03] VITALS: BP 141/97
--- NOTE | 2020-04-17 03:48 | NUR ---
INCONTINENT OF BOWEL AND BLADDER. TURNED TO SIDE AT ALL TIMES, USUALLY ON HER OWN. MEDS BEFORE MIDNIGHT SCHEDULED, SLEPT 2 HOURS BEFORE AND AT LEAST 3 HOURS AFTERWARDS, SO FAR. VICKIE UPDATED.
[2020-04-17 09:52] VITALS: BP 101/78
[2020-04-17 11:48] VITALS: BP 101/78
--- NOTE | 2020-04-17 13:33 | NUR ---
team, recommendation: dc 14th skilled vs home health. spouse work some with therapy training. she is mod to max assistance, rt severe cog and unable to follow direction.
--- NOTE | 2020-04-17 14:16 | NUR ---
ASSUMED CARE AT 0700 THIS MORNING. PT. IN HER ROOM ASLEEP. VSS, LUNGS CTA, ABD. SOFT WITH BOWEL COUNDS ACTIVE. NO LE EDEMA NOTED. PT. AMBULATES WITH A WALKER BUT CANNOT SEEM TO GUIDE IT HERSELF AND NEEDS ASSISTANCE WITH THIS. SHE DOES STATE WHEN SHE NEEDS TO USE THE RESTROOM. SHE IS TOTAL ASSIST WITH EATING. SHE SITS IN W/C OR CHAIR WITH LAP GASPER TO REMIND HER NOT TO GET UP BY HERSELF. HERE MOST OF THE DAY.
[2020-04-17 20:00] VITALS: BP 107/73
--- NOTE | 2020-04-18 01:36 | NUR ---
PT ALERT AND ORIENTED X 1, CONFUSED. TRANSFERRED TO BED AT HS WITH ASSIST X 1. HS MEDS GIVEN CRUSHED IN APPLESAUCE WITHOUT DIFFICULTY. PT DENIES PAIN OR DISCOMFORT. INCONT OF URINE. PT APPEARS TO BE SLEEPING ON HOURLY ROUNDS. BED ALARM ON FOR SAFETY.
[2020-04-18 07:13] LABS: FOLIC ACID 19.1 ng/mL (8.6-58.9)
[2020-04-18 08:00] VITALS: BP 123/86
--- NOTE | 2020-04-18 10:23 | NUR ---
cm was notified by visor installer that wanted to talk or speak with dr morgan. cm came up to [facility]. cm cont to wear own face mask and goggles during visit. henrique not in room. cm received report from CEMENT PATCHER. cm called he stated " i am in [employer] [address] through and i will be back"/henrique. cm will cont following as needed for dc needs.
--- NOTE | 2020-04-18 10:53 | NUR ---
ASSUMED CARE AT 0700. PATIENT IS ALERT AND ORIENTED TO PERSON ONLY. PATIENT LARIOS'S, APPLICATION DEVELOPMENT LIAISON ARE EQUAL. LUNGS ARE CLEAR AND DEMINISHED. ABD IS SOFT WITH BSX4. UP WITH MAX ASSIST OF ONE STAFF WITH GATI BELT TO BSC, TO VOID DINAH COLORED URINE. FALL AND SAFETY PROTOCOLS IN PLACE. NO C/O PAIN AT THIS TIME. UP IN W/C TO DINGING ROOM FOR MEALS. PATIENT CONTINUES TO PROGRESS SLOWLY TOWARDS D/C GOALS. WILL CONTINUE TO MONITER.
[2020-04-18 20:00] VITALS: BP 144/66
--- NOTE | 2020-04-19 01:53 | NUR ---
PATIENT HAS BEEN LAYING IN BED THIS EVENING. SHE IS A/0X1. SHE TOOK HER MEDS CRUSHED IN PUDDING OR YOGURT. SHE HAD 2 STOOLS OF WHICH CHEF DE CUISINE STATES THEY WERE MUSHY AND THE STOOL SMELLS SIMILAR TO CDIFF. PATIENT HAS BEEN PLEASANT AND COOPERATIVE. 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 SHE HAS HAD 2 DOSES OF HYDROCODONE SO FAR THIS EVENING D/T C/O HIP AND ABDOMEN PAIN. PATIENT'S ABDOMEN IS SOFT, WITH OLD SCAR FROM PAST SURGERY. BS POSITIVE X 4. PATIENT WAS ALSO GIVEN SIMETHICONE AND ZOFRAN AFTER THIS NURSE CALLED AND SPOKE WITH HOSPITALISTRosales SUIT MAKER REGARDING PATIENT WITHOUT PAIN RELIEF WITH HYDROCODONE AND XANAX. SHE SUGGESTED THE SIMETHICONE. PATIENT HAS QUIETED DOWN FROM MOANING AND TOSSING IN BED BEFORE SIMETHICONE AND ZOFRAN. THIS HAS BEEN 30 MINUTES. PATIENT APPEARS TO BE SLEEPING. PATIENT IS ABLE TO CHANGE HER POSITION BUT DID HELP REPOSITION PATIENT FOR COMFORT WHEN SHE WAS HAVING PAIN. PATIENT HAS VOIDED TWICE THIS EVENING AND HAS BEEN INCONTINENT. NEW ORDER RECEIVED TO COLLECT UA. WILL TRY WHEN SHE GETS UP TO BSC NEXT. BED IN LOW POSITON AND BED ALARM ON. PATIENT IS MAXIMUM ASSIST. FREQUENT ROUNDING FOR SAFETY.
--- NOTE | 2020-04-19 04:55 | NUR ---
PATIENT SLEPT FOR AN HOUR AFTER HAVING SIMETHCONE AND ZOFRAN THIS EVENING. SHE HAS BEEN TOSSING AND TURNING AND WANTING TO CONSTANTLY EAT. SAT PATIENT UP IN BED 3 DIFFERENT TIMES IN NIGHT FOR MEDS AND TO EAT. PATIENT YELLING OUT D/T UPSET THAT THIS NURSE WILL NOT KEEP FEEDING HER AND INSISTS THAT SHE TAKE A BREAK AND LET HER STOMACH DIGEST THE FOOD SHE HAS EATEN. I AM THINKING IT IS D/T THE MEGACE BUT COULD BE MENTAL ALSO. PATIENT HAS HAD 5 YOGURTS, 1 SHERBERT, 2 SF VANILLA PUDDINGS, 1 APPLESAUCE AND CARMELLA CRACKERS WITH PEANUT BUTTER. SHE HAS BEEN DRINKING ICE WATER ALSO. HER STOMACH BEGINGS HURTING HER WITHIN 30 MINUTES AFTER EATING WITH GAS. PATIENT HAS HAD 3 NONFORMED LIGHT BROWN/WHITE/YELLOW STOOL THAT IS MUSHY/RUNNY. SHE HAS BEEN INCONTINENT OF URINE X 2 AND UP TO BSC WITH ASSIST X2 WITH GAIT BELT X 1 AND VOIDED AROUND 400 CC. OPTIFORM WAS PLACED AT COCCYX AREA TO CUSHION AREA FROM FUTURE PRESSURE SORES. PATIENT IS REPOSITIONING HERSELF WELL. PATIENT IS ON AIR MATRESS AND BED LOCKED AND IN LOW POSITION. BED ALARM IS ON.
--- NOTE | 2020-04-19 06:56 | NUR ---
PATIENT C/O LEFT HIP PAIN. HYDROCODONE 5/325MG PO CRUSHED IN YOGURT. PATIENT REPOSITIONED OFF HIP. PATIENT STILL RESTLESS AND GRABBING AT THINGS AROUND HER. CONFUSED, A/0 X 1 BUT ABLE TO ANSWER MY QUESTION AND TELLL ME STORIES OF HER LIFE. BED IN LOW POSITION AND BED ALARM ON.
[2020-04-19 08:00] VITALS: BP 115/79
--- NOTE | 2020-04-19 08:53 | NUR ---
WOUND CARE F/U PT UP IN BR W/ OT, ASSESS SACRAL WOUND, NO DRSG IN PLACE, AREA HEALING, NOT OPEN, PINK, NO S/S INFECTION, DUE TO BONY PROMINENCE BARRIER CREAM APPLIED AND COVERED W/ OPTIFOAM DRSG. DISCUSSED STATUS W/ OVERNIGHT STOCKER GEORGINA, STATES PT CONFUSED AT TIMES AND POSSIBLY TAKING DRSG OFF, LOW AIR LOSS PUMP REMAINS ON BED RECOMMENDATIONS; CONT POC, CHANGE DRSG DAILY AND PRN, CONT LOW AIR LOSS PUMP TO BED, SITTING ON PILLOW AND SUGGESTED TO NOT SIT LONGER THAN 2 HOUR PERIODS, OFF LOADING, PRESSURE RELIEF OVERNIGHT STOCKER AWARE
--- NOTE | 2020-04-19 10:31 | NUR ---
ASSUMED CARE AT 0700. PATIENT IS ALERT TO PERSON ONLY. PATIENT LARIOS'S PALS NURSE ARE EQUAL. LUNGS ARE CLEAR. ABD IS SOFT WITH BSX4. ABD IS SOFT WITH BSX4. PATIENT IS UP WITH ASSIST OF 2 TO BATHROOM TO VOID DINAH COLORED URINE. UA SENT TO LAB. UP TO THE DINING ROOM FOR MEALS. FALL AND SAFETY PROTOCOLS IN PLACE. C/O PAIN IN HER BACK. MEDICATED WITH PRN PAIN MED AND XANAX FOR ANXIETY. CONTINUES TO PROGRESS SLOWLY TOWARDS D/C GOALS. WILL CONTINUE TO MONITER.
[2020-04-19 10:46] LABS: URINE BILIRUBIN NEGATIVE (Negative); URINE BLOOD NEGATIVE (Negative); URINE CLARITY CLEAR; URINE COLOR YELLOW; URINE GLUCOSE-RANDOM* NEGATIVE (Negative); URINE KETONES NEGATIVE (Negative); URINE LEUKOCYTES NEGATIVE (Negative); URINE NITRITE NEGATIVE (Negative); URINE PROTEIN (DIPSTICK) NEGATIVE (Negative); URINE UROBILINOGEN 0.2 E.U./dl (0.2-1.0)
[2020-04-19 22:13] VITALS: BP 123/87
--- NOTE | 2020-04-20 01:53 | NUR ---
UP IN CHAIR WITH LAP GASPER IN USE, PILLS CRUSHED WITH APPLESAUCE. BACK TO BED AT 2200 AFTER BOWEL MOVEMENT AND VOID ON BSC WITH MOD ASSIST OF TWO. TURNED TO SIDE AT 2300
[2020-04-20 08:00] VITALS: BP 135/96
--- NOTE | 2020-04-20 14:31 | NUR ---
ASSUMED CARES AT 0700. PT AWAKE, ORIENTED TO PERSON ONLY CONFUSED. VITALS REMAIN STABLE. PT C/O PAIN IN LOWER ABDOMEN AND LEFT HIP, PAIN MEDICATION ADMINISTERED AND LIDOCAINE PATCH APPLIED. PT ANXIOUS THIS AM XANAX ADM NEEDED. PT ATE 100% OF HER MEALS PLUS SNACKS NEEDED. PT UP WITH 1 MOD ASSIST, VERY CONFUSED DURING TRANSFERS REACHING FOR THINGS TO HANG ON TO AND NOT FOLLOWING CUES APPROPRIATELY. FREQ VISUAL CHECKS, AT THE BEDSIDE. FALL PRECAUTIONS IN PLACE. CALL LIGHT WITHIN REACH
[2020-04-20 16:35] VITALS: BP 108/79
[2020-04-20 19:44] VITALS: BP 128/83
--- NOTE | 2020-04-21 00:56 | NUR ---
TURNING TO SIDE, VOIDING PLUS BM CONTINENTLY. OCCASSIONALLY MOANING WHEN AWAKE. APRECIATES APPLESAUCE AND PUDDING, TOLERATES PILLS WHOLE IN THEM. GIVEN ORDERED SEROQUEL BEFORE 1999, FORGOT TO GIVE MELATONIN.
[2020-04-21 07:30] VITALS: BP 132/89
[2020-04-21 09:39] LABS: HEMATOCRIT 29.7 % (37.0-47.0); HEMOGLOBIN 10.1 gm/dL (12.0-15.0); MCH 35.3 pg (26.0-34.0); MCV 103.8 fL (80.0-100.0); RBC 2.86 mil/uL (4.20-5.00); RDW 19.8 % (10.5-14.5)
[2020-04-21 09:45] LABS: CALCIUM 9.2 mg/dL (8.5-10.1); CREATININE 0.6 mg/dL (0.6-1.0); POTASSIUM 3.7 mmol/L (3.5-5.1)
--- NOTE | 2020-04-21 13:07 | NUR ---
ASSUMED CARES AT 0700. PT ORIENTED TO PERSON ONLY, CONFUSED. AGITATED, XANAX ADMINISTERED NEEDED. C/O PAIN IN LOWER ABDOMEN AND LEFT HIP, PAIN MEDICATION ADMINISTERED NEEDED. PT UP IN THE CHAIR AT THE NURSE'S DESK AT 0700, RESTLESS AND REACHING FOR STUFF. CALMED DOWN AND HAD BREAKFAST, PARTICIPATED IN THERAPY. UP WITH 1 MIN-MOD ASSIST, DIFFICULTY FOLLOWING COMMANDS. FREQ. VISUAL CHECKS. CALL LIGHT WITHIN REACH. FALL PRECAUTIONS IN PLACE
[2020-04-21 19:20] VITALS: BP 118/75
--- NOTE | 2020-04-22 00:50 | NUR ---
PT ALERT AND ORIENTED X 1, CONFUSED. AGITATED AND IMPULSIVE AT START OF SHIFT. APPEARS TO BE SLEEPING AT THIS TIME. INCONT OF LARGE AMT OF URINE. PT C/O GENERALIZED PAIN. HYDROCODONE GIVEN ORDERED. XANAX ALSO GIVEN FOR AGITATION. BED ALARM ON FOR SAFETY. PT APPEARS TO BE SLEEPING ON HOURLY ROUNDS.
[2020-04-22 07:40] VITALS: BP 141/95
--- NOTE | 2020-04-22 13:09 | NUR ---
ASSUMED CARES AT 0700. PT ORIENTED TO PERSON ONLY, CONFUSED AND FORGETFUL. AGITATED AND IMPULSIVE, XANAX ADMINISTERED NEEDED. PT C/O PAIN LEFT HIP AND LOWER ABDOMEN, PAIN MEDICATION ADMINISTERED NEEDED. VITALS REMAIN STABLE. PT UP WITH 1 MOD ASSIST, GB AND WALKER. EATING 100% OF HER MEAL PLUS SNACK IN BETWEEN. 1 ON 1 SUPERVISION OFFERED AT TIMES, AT THE BEDSIDE. FREQ VISUAL CHECKS. CALL LIGHT WITHIN REACH. FALL PRECAUTIONS IN PLACE
[2020-04-22 16:43] VITALS: BP 120/88
[2020-04-22 19:30] VITALS: BP 139/87
--- NOTE | 2020-04-22 23:30 | NUR ---
ASSUMED PT CARE AT 1900. PT IS ORIENTED TO SELF ONLY, UNABLE TO ANSWER ANY OTHER ORIENTATION QUESTIONS. TRANSFERRED [place] [facility] [place]IST [place]ONIGHT. PILLS GIVEN WHOLE IN APPLESAUCE. PT IS RESTLESS IN BED, STIRRING AROUND AND MOANING AT START OF SHIFT. AFTER GIVEN PROPER ATTENTION, SHE SEEMED TO CALM DOWN AND HAS BEEN RESTING QUIETLY IN HER BED SINCE. WILL CONTINUE TO MONITOR AND UPDATE WITH CHANGES.
[2020-04-23 08:10] VITALS: BP 118/84
--- NOTE | 2020-04-23 11:13 | NUR ---
WOUND CARE F/U ASSESSED SACRAL WOUND W/ WATER PIPE INSTALLER HILLARY, SMALL GABRIEL AREA ~.3CM, NO DRAINAGE, HEALING, DUE TO BONY PROMINENCE SUGGEST TO CONT PROTECTIVE CREAM AND KEEP AREA COVERED W/ BORDER FOAM DRSG, PT COOPERATIVE BUT CONFUSION NOTED, SPOUSE AT BS RECOMMENDATIONS; CONT CURRENT POC, ENCOURAGE OFF LOADING PRESSURE RELIEF AND NOT SITTING LONG PERIODS, CONT LOW AIR LOSS PUMP TO BED, SIT ON PILLOW OR WAFFLE CUSHION WATER PIPE INSTALLER AWARE
[2020-04-23 12:02] LABS: BASOPHILS 0.3 % (0.0-2.0); HEMATOCRIT 29.1 % (37.0-47.0); LYMPHOCYTES 22.7 % (24.0-44.0); MCH 35.4 pg (26.0-34.0); MCHC 34.5 g/dL (28.0-37.0); MCV 102.6 fL (80.0-100.0); PLATELET COUNT 377 thou/uL (150-400); RBC 2.84 mil/uL (4.20-5.00); WBC 7.6 thou/uL (4.0-11.0)
[2020-04-23 12:11] LABS: CALCIUM 9.5 mg/dL (8.5-10.1); CREATININE 0.6 mg/dL (0.6-1.0); MAGNESIUM 1.5 mg/dL (1.8-2.4); POTASSIUM 3.9 mmol/L (3.5-5.1)
[2020-04-23 13:07] LABS: ANISOCYTOSIS 1+; PLATELET ESTIMATE NORMAL
--- NOTE | 2020-04-23 18:04 | NUR ---
PT ASSESSED AT START OF SHIFT. TRACKED FAIRLY WELL W/ CONVERSATIONS BUT HAS TROUBLE FINDING WORDS. MEDICATED FOR CYSTITIS PAIN PER PT ACCOUNT. EATING LARGE AMTS OF FOOD AT MEAL TIMES. CONTINENT OF B&B. HERE MUCH OF SHIFT.
[2020-04-23 20:45] VITALS: BP 93/56
--- NOTE | 2020-04-24 02:37 | NUR ---
ASSUMED PT CARE AT 1900.PT WAS RESTLESS AND MOANING AT SHIFT CHANGE,AM NURSE ADMINISTERED PAIN MED BEFORE SHE LEFT.PT AHD A BM AND HAD HER HAND ALL OVER IN IT,COMPLETE BED CHANGE DONE WITH BED BATH,PT'S CALLED TO CHECK ON HER,UDATED HIM ON HER STATUS.PT SLEPT AFTER RECEIVING HER HS MEDS.FALL PRECAUTIONS IN PLACE,CALL LIGHT WITHIN REACH.
[2020-04-24 08:00] VITALS: BP 104/77
--- NOTE | 2020-04-24 12:48 | NUR ---
team meeting, recommendation: needing more clues, refusing medication over past medication. not wanting to work with therapy. nursing and ot not recommendation that pt go home she needs skilled, or 24hr total assistance. 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 spouse needs writing instruction. will cont following as needed for dc needs. hh ( pt, ot, st, nursing and sw). will cont to prep for dc. re team, in less she progress will need to dc 25th. wheel chair, fww.
--- NOTE | 2020-04-24 14:01 | NUR ---
ASSUMED CARES AT 0700. PT AWAKE, ORIENTED TO PERSON ONLY. CONFUSED, WITHDRAWN TODAY AND QUIET. HR ELEVATED (119), PT C/O PAIN IN LOWER ABDOMEN AND LEFT HIP, PAIN MEDICATION ADMINISTERED AND LIDOCAINE PATCH IN PLACE. ALL OTHER VITALS REMAIN STABLE. PT UNABLE TO FOLLOW CUES APPROPRIATELY FOR TRANSFERS, CLINGING ONTO FURNITURE DURING TRANSFERS AND DIFFICULT TO REDIRECT. PT UP WITH 1 MOD-MAX ASSIST, GB AND WALKER. Q1H VISUAL CHECKS. CALL LIGHT WITHIN REACH. FALL PRECAUTIONS IN PLACE
[2020-04-24 15:59] VITALS: BP 109/79
[2020-04-24 20:00] VITALS: BP 113/83
--- NOTE | 2020-04-25 02:37 | NUR ---
TO BED ABOUT 1999 AND SLEEPING SINCE THEN. TURNED SIDE TO SIDE, MODERATE BM, A FEW SIPS OF WATER. Z-GUARD TO SACRUM AND BUTTOCKS, LOW AIR LOSS THERAPY CONTINUES
[2020-04-25 07:16] VITALS: BP 123/89
--- NOTE | 2020-04-25 09:04 | NUR ---
WOUND CARE F/U ASSESSED SACRAL AREA W/ FLOOR INSPECTOR PADMINI, SMALL GABRIEL AREA PRESENT, NOT OPEN, NO S/S INFECTION, HEALING, DUE TO BONY PROMINENCE SUGGEST TO CONT USE OF BARRIER CREAM AND BORDER FOAM DRSG, PT COOPERATIVE BUT SOME CONFUSION PRESENT, LOW AIR LOSS PUMP REMAINS ON BED RECOMMENDATIONS; CONT POC, BARRIER CREAM AND BORDER FOAM DRSG DAILY AND PRN, CONT LOW AIR LOSS PUMP TO BED, ENCOURAGED PRESSURE RELIEF, OFF LOADING, NOT SITTING LONGER THAN 2 HOURS, SITTING ON PILLOW OR WAFFLE SEAT CUSHION FLOOR INSPECTOR AWARE LOW AIR LOSS PUMP
--- NOTE | 2020-04-25 09:29 | NUR ---
pt up at nursing station with bedside nurse, wild visiting with dr morgan, will wait to talk about skilled rehab list and senior blue book provided. after dr morgan was done talking with wild.
--- NOTE | 2020-04-25 11:02 | NUR ---
This chairlift operator responded to the "STROKE LEVEL 1" overhead and page. Staff were working with the patient. This chairlift operator has had significant interactions with the patient and for the past several weeks. I visited some with the outside [facility] room, We had prayer for his .
[2020-04-25 11:06] LABS: ABSOLUTE NEUTROPHILS 4.8 thou/uL (1.4-8.2); BASOPHILS 0.2 % (0.0-2.0); EOSINOPHILS 0.8 % (0.0-3.0); HEMATOCRIT 31.8 % (37.0-47.0); HEMOGLOBIN 10.5 gm/dL (12.0-15.0); LYMPHOCYTES 24.5 % (24.0-44.0); MCHC 32.9 g/dL (28.0-37.0); MCV 106.3 fL (80.0-100.0); MONOCYTES 10.2 % (1.0-8.0); PLATELET COUNT 346 thou/uL (150-400); POLYS 64.3 % (36.0-66.0); RBC 2.99 mil/uL (4.20-5.00); RDW 19.1 % (10.5-14.5); WBC 7.4 thou/uL (4.0-11.0)
[2020-04-25 11:15] VITALS: BP 111/72
[2020-04-25 11:16] LABS: CALCIUM 9.5 mg/dL (8.5-10.1); CREATININE 0.4 mg/dL (0.6-1.0)
[2020-04-25 11:21] LABS: POTASSIUM 4.7 mmol/L (3.5-5.1)
[2020-04-25] MEDS ORDERED: VITAMIN B-12500 MCG PO (11:55)
[2020-04-25] MEDS ORDERED: SEROQUEL 100 M100 MG PO (11:55)
[2020-04-25] MEDS ORDERED: ASPIRIN EC81 M1 PO (11:55)
[2020-04-25] MEDS ORDERED: PLAVIX 75 MG TA75 M1 PO (11:55)
[2020-04-25] MEDS ORDERED: SIMETHICON CHEW80 M1 PO (11:55)
[2020-04-25] MEDS ORDERED: PANTOPRAZOLE SO40 M1 PO (11:55)
[2020-04-25] MEDS ORDERED: NICOTINE1 EAC2 TRANSDERM (11:55)
[2020-04-25] MEDS ORDERED: LIDOPATCH1 EACH TRANSDERM (11:55)
[2020-04-25] MEDS ORDERED: DEPAKOTE SPRIN125 MG PO (11:55)
--- NOTE | 2020-04-25 12:31 | NUR ---
ASSUMED CARES AT 0700. PT IN BED LAYING ON HER LEFT SIDE, CONFUSED AND ANXIOUS. PT UNABLE TO RECALL OR PRONOUNCE WORDS. RESPONDING WITH "NO" OR "MMM" THEN SHAKING HER HEAD IF ANGRY FOR NOT BEING ABLE TO PUT INTO WORDS WHAT SHE WANTS TO SAY. VITALS REMAIN STABLE. PT MOANING IN PAIN AND HOLDING ONTO HER BELLY AND LUE, HYDROCODONE GIVEN BY NOC RN AT 0641. XANAX ADMINISTERED AT 0800. PT UP IN THE CHAIR WITH 2MAX ASSIST, ATE BREAKFAST WITH SPEECH THERAPY SUPERVISION (ATE 100%). DEPENDENT ON ALL CARES WITH OCCUPATIONAL THERAPY. HOSPITALIST, REHAB PHYSICIAN AND PSYCH CONSULTED. UPON EVALUATION BY PSYCH PT WAS NOTED TO HAVE INCREASED LEFT SIDED WEAKNESS, SPEECH DEFICITS AND INCREASED COGNITION DEFICITS. CODE STROKE WAS INITIATED, CT WAS NEGATIVE. NEUROLOGY CONTACTED AND PT WAS TRANSFERRED TO CCU. REPORT GIVEN AT THE BEDSIDE TO CCU RN. AT THE BEDSIDE, UPDATED ON THE PROGRESS.
[2020-04-25 12:46] LABS: APTT 25.2 Seconds (24.5-32.8)
[2020-04-25 13:04] LABS: ANISOCYTOSIS 1+; MACROCYTES SLIGHT; POIKILOCYTOSIS SLIGHT
== END 2020-04-25 12:03 | disposition short-term general hospital (02) | DRG 91 ==
PROVIDERS: Hospitalist; Internal Medicine; Nurse Practitioner; Psychiatry & Neurology Psychiatry; ADMIT Physical Medicine & Rehabilitation; ATTEND Physical Medicine & Rehabilitation
DX: G72.81 Critical illness myopathy (principal); J96.01 Acute respiratory failure with hypoxia; E43 Unspecified severe protein-calorie malnutrition; G93.1 Anoxic brain damage, not elsewhere classified; I42.8 Other cardiomyopathies; K86.3 Pseudocyst of pancreas; N39.0 Urinary tract infection, site not specified; I47.1 Supraventricular tachycardia; Z68.1 Body mass index [BMI] 19.9 or less, adult; F32.9 Major depressive disorder, single episode, unspecified; G62.9 Polyneuropathy, unspecified; G40.909 Epilepsy, unspecified, not intractable, without status epilepticus; D47.3 Essential (hemorrhagic) thrombocythemia; R41.0 Disorientation, unspecified; R41.9 Unspecified symptoms and signs involving cognitive functions and awareness; I10 Essential (primary) hypertension; E03.9 Hypothyroidism, unspecified; F17.210 Nicotine dependence, cigarettes, uncomplicated; D64.9 Anemia, unspecified; K86.9 Disease of pancreas, unspecified; M19.90 Unspecified osteoarthritis, unspecified site; I65.22 Occlusion and stenosis of left carotid artery; Z96.649 Presence of unspecified artificial hip joint; F41.9 Anxiety disorder, unspecified; G47.00 Insomnia, unspecified; B96.20 Unspecified Escherichia coli [E. coli] as the cause of diseases classified elsewhere; K59.00 Constipation, unspecified; F22 Delusional disorders; F10.20 Alcohol dependence, uncomplicated; E53.8 Deficiency of other specified B group vitamins; Z88.6 Allergy status to analgesic agent; Z93.3 Colostomy status; Z88.8 Allergy status to other drugs, medicaments and biological substances; Z90.710 Acquired absence of both cervix and uterus; Z82.49 Family history of ischemic heart disease and other diseases of the circulatory system; R62.7 Adult failure to thrive
CPT/HCPCS: 10112

== ENCOUNTER 2020-04-25 12:17 | Inpatient (IN) | payer OTHER ==
[~2020-04-25] VITALS: Ht 160 cm; Wt 46.5 kg
[~2020-04-25 12:17] MED LIST changes: +ASPIRIN EC81 M1 PO; +DEPAKOTE SPRIN125 MG PO; +LIDOPATCH1 EACH TRANSDERM; +NICOTINE1 EAC2 TRANSDERM; +PANTOPRAZOLE SO40 M1 PO; +PLAVIX 75 MG TA75 M1 PO; +SEROQUEL 100 M100 MG PO; +SIMETHICON CHEW80 M1 PO; +VITAMIN B-12500 MCG PO
[2020-04-25 12:18] VITALS: BP 124/76
--- NOTE | 2020-04-25 13:04 | NUR ---
DYE BOARDING MACHINE OPERATOR RESPONDING TO LEVEL 1 CODE STROKE ACTIVATION ON 5TH FLOOR REHAB. PATIENT LAYING IN BED ALTERED MENTAL STATUS. BLOOD GLUCOSE 84. PT REPEATING THE WORD "NO" AND ROLLING IN BED FROM RIGHT TO LEFT. UNABLE TO COMPLETE NIHSS SECONDARY TO PATIENT NOT FOLLOWING COMMANDS. LEFT LOWER EXT WEAKNESS AND NOT MOVING. PT DOES PULL BACK FOOT VERY SLIGHTLY TO PAINFUL STIMULI. PATIENT GIVEN SEDATIVE AND TAKEN TO CT FOR HEAD W/O ACCOMPANIED BY X2 RN. YASEMIN TOLERATED CT AND RETURNED TO NEW ROOM ON CCU. 20G IV STARTED IN RIGHT AC AND BLOOD SENT TO LAB EARLIER. DR HENRY CONSULTED. ORDERED FOR CTA OF HEAD HOWEVER PATIENT UNABLE TO LAY STILL. PATIENT STILL NOT FOLLOWING ANY COMMANDS. APPEARS TO BE MOVING LEFT LOWER EXT MORE THAN BEFORE. WILL AWAIT NEW ORDERS OR OPINIONS FROM NEUROLOGY. WILL CONTINUE TO FOLLOW.
--- NOTE | 2020-04-25 14:30 | NUR ---
Patient initially admitted March 02 to [facility]. She went into cardiac arrest and transferred to ICU. She transitioned from ICU to eventual 5N rehab unit. Patient transferred to CCU today for code stroke. Sp at bedside. Patient with workup in process. Discussion from rehab tenative plan for dc Tues to skilled post acute care. Will continue discussion with spouse if appropriate.
[2020-04-25 16:47] VITALS: BP 134/94
--- NOTE | 2020-04-25 17:19 | NUR ---
PT CARE ASSUMED APPROX 1210. ASSESSMENTS CHARTED. PT CONFUSED AND COMBATIVE AT TIMES. REMOVING TELE, GOWN, BRIEF AND MAKING ATTEMPTS TO REMOVE PIV. SAFETY ALTERNATIVES PUT IN PLACE BUT FAILED. SPOUSE AT BEDSIDE. BWR APPLIED. SEE INTERVENTION. PT SPOUSE EDUCATED ON SAFETY AND GIVEN FREQUENT UPDATES ON POC. PT'S SPOUSE ALWAYS SEEMS CONFUSED TO POC BUT IS EDUCATED THOROUGHLY DESPITE CONTINUING TO VOICE CONFUSION. NEURO AND PSYCH AT BEDSIDE SINCE PT'S TRANSFER FROM 5N TO R/O CVA. SCANS WERE DELAYED SOME D/T PT'S INABILITY TO BE STILL DESPITE BEING MEDICATED. PT'S BEDSIDE SWALLOW EVAL ON HOLD AT THIS TIME DUE TO PT BEING DROWSY, UNABLE TO CONSISTENTLY FOLLOW COMMANDS AND FALLING ASLEEP DURING SPEAKING INCOMPREHENSIBLY. VSS. TURNING Q2 HRS AND PRN. WILL CONTINUE TO UPDATE SPOUSE TO POC HE RAISES QUESTIONS. PT TOLERATING POC AT THIS TIME.
[2020-04-25 19:22] VITALS: BP 130/65
[2020-04-25 23:32] VITALS: BP 141/74
--- NOTE | 2020-04-26 04:30 | NUR ---
Assumed pt care at 1900. Pt is seen in bed in restraint, confused. Pt is unable to make coherent conversation. Pt is restless in bed and agtitated. No sign of distress noted. Pt is awake most of the night. Assessment completed and documented. Pt is restless through the night. Continue to monitor pt.
[2020-04-26 04:40] VITALS: BP 129/69
[2020-04-26 05:29] LABS: ABSOLUTE NEUTROPHILS 4.7 thou/uL (1.4-8.2); BASOPHILS 0.2 % (0.0-2.0); EOSINOPHILS 1.1 % (0.0-3.0); HEMATOCRIT 30.3 % (37.0-47.0); HEMOGLOBIN 10.5 gm/dL (12.0-15.0); LYMPHOCYTES 22.9 % (24.0-44.0); MCH 35.5 pg (26.0-34.0); MCHC 34.6 g/dL (28.0-37.0); MCV 102.4 fL (80.0-100.0); MONOCYTES 6.2 % (1.0-8.0); PLATELET COUNT 359 thou/uL (150-400); POLYS 69.6 % (36.0-66.0); RBC 2.96 mil/uL (4.20-5.00); WBC 6.7 thou/uL (4.0-11.0)
[2020-04-26 05:49] LABS: CALCIUM 10.4 mg/dL (8.5-10.1); CREATININE 0.6 mg/dL (0.6-1.0); MAGNESIUM 1.6 mg/dL (1.8-2.4); POTASSIUM 3.8 mmol/L (3.5-5.1)
[2020-04-26 05:52] LABS: URINE BILIRUBIN NEGATIVE (Negative); URINE BLOOD NEGATIVE (Negative); URINE CLARITY CLEAR; URINE COLOR YELLOW; URINE GLUCOSE-RANDOM* NEGATIVE (Negative); URINE KETONES NEGATIVE (Negative); URINE LEUKOCYTES-REFLEX NEGATIVE (Negative); URINE NITRITE-REFLEX NEGATIVE (Negative); URINE PROTEIN (DIPSTICK) NEGATIVE (Negative); URINE SPECIFIC GRAVITY 1.015 (1.005-1.035); URINE UROBILINOGEN 0.2 E.U./dl (0.2-1.0)
[2020-04-26 06:05] LABS: AMP/METHAMP Negative (Negative); BARBITURATES Negative (Negative); BENZODIAZEPINES POSITIVE (Negative); COCAINE Negative (Negative); METHADONE Negative (Negative); OPIATES Negative (Negative); PCP Negative (Negative)
[2020-04-26 08:00] VITALS: BP 107/51
--- NOTE | 2020-04-26 09:09 | NUR ---
WOUND CARE NOTE; ASSESSED SACRAL AREA W/ WEB ART DIRECTOR DEBBY, AREA HEALING, STILL PINK. NO S/S INFECTION, NO OPEN AREAS, INCONT URINE, AWAKE BUT CONFUSED, COOPERATIVE, ORDERED LOW AIR LOSS PUMP TO BED RECOMMENDATIONS; PROTECTIVE CREAM TO AREA DAILY AND PRN, COVER W/ BORDER FOAM, LOW AIR LOSS PUMP, TURN Q 2HOURS MINIMAL, REPOSITION, OFF LOADING WEB ART DIRECTOR AWARE
--- NOTE | 2020-04-26 09:16 | NUR ---
ADDENDUM TO WOUND CARE NOTE; DUE TO INCONT SUGGEST TRYING PURE WICK CATH AGAIN PROMOTIONS REPRESENTATIVE AWARE
--- NOTE | 2020-04-26 10:40 | NUR ---
ASSUMED CARE OF PT AT SHIFT CHANGE; IN RESTRAINTS, IN GOOD SPIRITS THIS A.M. REMOVING RESTRAINTS FOR HER FREEDOM FOR DINING, VANITY, SPOUSE AT BEDSIDE NOT LONG AFTER ASSESSMENT. MRI AND EEG TO BE SCHEDULED. PT CAN ANSWER HER BDATE. USED TO BE IN NURSING A PROFESSION. WHEN ASKED HER/SPOUSES GOAL FOR DISCHARGE HE STATES HE WANTS HER BACK IN REHAB. WILL CONTINUE TO MONITOR. ENCOURAGED BOTH TO USE CALL LIGHT FOR ANY NEEDS
[2020-04-26 11:50] VITALS: BP 100/69
[2020-04-26 11:59] LABS: TSH 4.564 uIU/mL (0.358-3.740)
--- NOTE | 2020-04-26 15:58 | NUR ---
Neuro w/u in progress and pt currently down in MRI. Food Service Sales Representatives visited with the pt's spouse at bedside along with 5N rehab urinalysis technician Mary. Spouse indicates that he is aware that she will not qualify for another acute rehab stay. Based on the 5N dc plan SNF referrals are recommended. Pt's spouse is agreeable and he has been reviewing the listing provided. He is concerned that she may need to consider group home care in the future if she is not able to improve enough to return home. They would be private pay and he is needing referrals for estate planning and elder law. [facility], [facility], and [facility] numbers provided. Based on our discussion, SNF referrals will be sent to [facility], [facility], [facility], [facility] and [facility]. We will see which are in network with and which can offer potential ltc placement if needed. Support provided. DC 1-2 days pending neuro w/u and insurance auth. DC raw material planner to fax referrals this afternoon.
[2020-04-26 16:12] VITALS: BP 118/83
[2020-04-26 20:27] VITALS: BP 111/78
--- NOTE | 2020-04-27 03:22 | NUR ---
ASSUMED CARE 1900. PATIENT ALERT AND ORIENTED X 2. RESTRAINTS MAINTAINED. PT CONFUSED , PERIODICALLY TRYING TO GET OUT OF BED. PULLED OUT IV. NO OTHER CONCERNS, VSS.. ASSESSMENTS DOCUMENTED. WILL CONTINUE TO MONITOR AND FOLLOW POC.
[2020-04-27 04:10] VITALS: BP 128/86
[2020-04-27 07:45] VITALS: BP 143/94
--- NOTE | 2020-04-27 15:14 | NUR ---
PATIENT HAS BEEN SEEN FOR REHAB CONSULT BY VICKIE SANDS NP WITH DR. HARPER. RECOMMENDED DISCHARGE LOCATION IS A SKILLED SETTING. PANELBOARD OPERATOR INFORMED. THANK YOU FOR THIS REFERAL.
[2020-04-27 16:00] VITALS: BP 119/68
--- NOTE | 2020-04-27 17:36 | NUR ---
SNF referrals being reviewed by [facility], [facility], [facility], [facility] and [facility]. [facility] has responded and they are out of network with . [facility] is in network but they do not feel they can accept the pt due to behaviors and spouse told them he does not want ltc. Pt will need to be out of restraints for 24hrs and will need auth. Cm to update [facility] with therapy and progress notes on Thursday along with [facility] and [facility]. Neuro doing an EEG and still trying to identify source of encep. Will follow.
--- NOTE | 2020-04-27 19:09 | NUR ---
ASSESSMENT CHARTED - MEDS PER STUART SOUZA DIET AND FLUIDS. APPITIE GOOD EATING 75-100% OF MEALS, PT RESTRIANED THIS AM AT BEGINNING OF SHIFT - RESTRAINTS REMOVED AT 0930- PT GIVEN CONSTANT REMINDERS TO NOT GET OUT OF THE BED - BED ALARM ON. PT HAS BEEN CONTINENT OF STOOL THIS SHIFT REQUESTING TO GET UP TO THE BSC, HAS BEEN INCONT OF URINE, NO CO'S OF PAIN OR NAUSEA. MENTATION IS STILL SLOW AT TIMES/ CONFUSED AT OTHERS AND APPEARS TO BE ORIENTED AT OTHER TIMES, SPEECH AT TIMES CAN BE SLOW /MUMBLED AND DIFFICULT TO UNDERSTAND. AT THE BEDSIDE PERIODICLY TODAY. NO CO'S AT THE PRESENT TIME.
[2020-04-27 20:50] VITALS: BP 105/74
--- NOTE | 2020-04-28 02:44 | NUR ---
PT OFF RESTRAINTS THE WHOLE NIGHT. MORE ALERT AND AWAKE WITHOUT AGITATION OR RESTLESSNESS. REPORTS LEFT HIM PAIN, ALLEVIATED BY PRN TYLENOL. VITALS STABLE, R ON THE MONITOR. ASSIST X 2 TO THE BEDSIDE COMMODE. NO FURTHER CONCERNS OVERNIGHT. WILL CONTINUE TO FOLLOW POC AND PROMOTE SAFETY,
[2020-04-28 03:20] VITALS: BP 130/86
[2020-04-28 06:10] LABS: DIRECT BILIRUBIN < 0.1 mg/dL (<0.1-0.2); SGOT 18 U/L (15-37); SGPT 17 U/L (30-65); TOTAL BILIRUBIN 0.3 mg/dL (0.2-1.0); TOTAL PROTEIN 6.3 g/dL (6.4-8.2)
[2020-04-28 08:00] VITALS: BP 121/87
[2020-04-28 12:10] VITALS: BP 110/78
[2020-04-28 15:25] VITALS: BP 117/86
--- NOTE | 2020-04-28 16:57 | NUR ---
PT CARE ASSUMED APPROX 0700. ASSESSMENTS CHARTED. PT DENIES SOA. REPORTED NAUSEA THIS AM WITH RELIEF AFTER MEDICATED. REPORTS PAIN TO LEFT HIP. MANAGING PAIN PER POC. VSS. PT MAX ASSIST TO BSC. DID NOT AMBULATE THIS SHIFT DUE TO WEAKNESS. AT PT'S BEDSIDE INTERMITTENTLY WITH A LOT OF QUESTIONS. CLINICAL UPDATES GIVEN AND SPOUSE EDUCATED. PT TOLERATING POC WITHOUT DISTRESS OR ISSUES. WILL CONTINUE WITH POC.
[2020-04-28 20:00] VITALS: BP 115/63
[2020-04-29 03:50] VITALS: BP 111/66
[2020-04-29 08:11] VITALS: BP 127/84
[2020-04-29 12:22] VITALS: BP 98/60
[2020-04-29 14:35] LABS: URINE BILIRUBIN NEGATIVE (Negative); URINE BLOOD NEGATIVE (Negative); URINE CLARITY CLEAR; URINE COLOR YELLOW; URINE GLUCOSE-RANDOM* NEGATIVE (Negative); URINE KETONES NEGATIVE (Negative); URINE LEUKOCYTES-REFLEX TRACE (Negative); URINE NITRITE-REFLEX POSITIVE (Negative); URINE PROTEIN (DIPSTICK) NEGATIVE (Negative); URINE UROBILINOGEN 0.2 E.U./dl (0.2-1.0)
[2020-04-29 15:10] LABS: BACTERIA-REFLEX >30 Many /HPF (None Seen); CRYSTALS None Seen /LPF (None Seen); SQUAMOUS 0-3 Few /LPF (0-3); URINE RBC None Seen /HPF (0-2); URINE WBC-REFLEX 6-15 Few /HPF (0-5)
[2020-04-29 15:41] VITALS: BP 140/83
--- NOTE | 2020-04-29 18:03 | NUR ---
ASSUMED CARE OF PT AT SHIFT CHANGE. ASSESSMENTS CHARTED. MED GIVEN PER NOV. PT SELF, PLACE AND SITUATION. C/O L HIP PAIN TREATED WITH PO AND IV MEDS WITH PARTIAL RELIEF. AFTER LEFT BEDSIDE, TREATED ANXIETY WITH PO MEDS WITH PARTIAL RELIEF. PLAN TO CONTINUE TO LOOK FOR PLACEMENT, NO LONGER QUALIFIES FOR 5N. WILL CONTINUE TO MONITOR AND FOLLOW POC.
[2020-04-29 20:20] VITALS: BP 116/81
[2020-04-30 03:35] VITALS: BP 118/81
--- NOTE | 2020-04-30 04:03 | NUR ---
Assumed pt care at 1900. Upon arrival to room, pt is alert and oriented but forgetful. Pt is sitting in chair and is able to answer questions accordingly. Assessment completed and documented. Fall precaution in place. As the night progressed, patient became increasingly confused but easily re-oriented. Scheduled meds adminitered to pt. Tolerated PO intake. Stable through the night except for been confused. Continue to monitor.No acute events overnight. No further needs at this time
[2020-04-30 08:45] VITALS: BP 129/94
--- NOTE | 2020-04-30 09:48 | NUR ---
WOUND CARE F/U; ASSESSED SACRAL WOUND W/ SUPERVISOR SHIPPING ROOM ALONSO, AREA PINK, HEALING, NO OPEN AREAS, NO S/S INFECTION, COOPERATIVE BUT SOME CONFUSION STILL PRESENT, ACCORDING TO STAFF RESTLESS AT TIMES, LOW AIR LOSS PUMP STILL ON BED, INCONT AT TIMES, SPOUSE AT BS RECOMMENDATIONS; DUE TO BONY PROMINENCE SACRAL AREA AND INCONT SUGGEST TO CONT BARRIER PROTECTIVE CREAM, COVER W/ BORDER FOAM, CHANGE DAILY, CONT LOW AIR LOSS PUMP TO BED, PURE WICK CATH PRN, PRESSURE RELIEF, OFF LOADING STAFF RM AWARE
--- NOTE | 2020-04-30 12:21 | NUR ---
spoke with spouse this am. reviewed referrals Left message with [facility], [facility] is out of network, left message with [facility] not accepting, and [facility] not accepting. spouse requests referral to [facility]. Faxed referral and left message with admissions.
--- NOTE | 2020-04-30 14:50 | NUR ---
Spoke with admissions at [facility] who reports rosa Marley should call me to alert of acceptance. Message also with [facility]. [facility] is not accepting of patient, updated .
[2020-04-30 16:00] VITALS: BP 107/73
[2020-04-30 19:30] VITALS: BP 138/100
--- NOTE | 2020-04-30 19:36 | NUR ---
ASSUMED CARE OF PT AT SHIFT CHANGE. ASSESSMENTS CHARTED. MEDS GIVEN PER NOV. PT ALERT TO SELF, PLACE AND SITUAION. C/O OF HIP PAIN TREATED WITH PO AND IV MEDS. ANXIETY TREATED WITH PO MEDS. PT EASILY DISTRACTED AND SLOW TO RESPOND TO QUESTIONS, BUT BECOMING STRONGER. WORKED WITH OT AND PT. STILL SEEKING PLACEMENT. PO ABX STARTED TODAY.
--- NOTE | 2020-05-01 04:22 | NUR ---
Assumed pt care at 1900. Pt is drowsy. No sign of distress noted in pt. Laying in bed, pt is stable. Fall precaution in place. Pain med administered as required.Assessment completed and documented. Scheduled meds administered to pt. Continue to monitor. Waiting on placement. No acute event. No further needs at this time.
[2020-05-01 04:45] VITALS: BP 140/92
[2020-05-01 07:45] VITALS: BP 122/72
[2020-05-01 12:00] VITALS: BP 115/78
--- NOTE | 2020-05-01 14:05 | NUR ---
FOLLOWED UP ON REFERRALS FAXED TO [facility] AND [facility] THEY BOTH DENIED REFERRALS.
--- NOTE | 2020-05-01 16:35 | NUR ---
[facility] reevaled and not accepting. [facility] not accepting. Sp with spouse and patient. Referral to [facility].
[2020-05-01 17:20] VITALS: BP 109/69
--- NOTE | 2020-05-01 17:20 | NUR ---
FAXED REFERRAL TO [facility] RECEIVED CONFIRMATION AND WILL F/U ON REFERRAL IN THE MORNING. DP TO FOLLOW.
[2020-05-01 18:00] VITALS: BP 115/78
--- NOTE | 2020-05-01 18:54 | NUR ---
ASSUMED CARE OF PT AT SHIFT CHANGE. ASSESSMENTS CHARTED. MEDS GIVEN PER NOV. PT ALERT TO SELF. CONFUSED, WITH DIFFICULTY FINDING WORKS. SLOW TO RESPOND. UP WITH 1 ASSIST TO BSC. WAITING FOR AUTH ON PLACEMENT. WILL CONTINUE TO MONITOR AND FOLLOW POC.
[2020-05-01 19:46] VITALS: BP 109/77
[2020-05-02 04:01] VITALS: BP 126/89
--- NOTE | 2020-05-02 04:48 | NUR ---
Assumed pt care at 1900. Pt alert and forgetful. No sign of distress noted. Pt continues to be forgetful. Pt is stable. Call light within reach. Fall precaution in place. Pain medication administered upon request. Assessment completed and documented. Scheduled meds administered to pt. Pt has a decent night sleep. Waiting on placement. No acute events overnight. Continue to monitor. No further needs at this time.
[2020-05-02 09:02] VITALS: BP 142/104
--- NOTE | 2020-05-02 09:48 | NUR ---
WOUND CARE F/U ASSESSED SACRAL AREA W/ CLOTH FINISHING RANGE OPERATOR ALONSO, SPOUSE ALSO AT BS, AREA HEALING, STILL PINK, NO OPEN AREAS, COOPERATIVE BUT CONFUSED, DUE TO BONY PROMINENCE SUGGEST TO CONT PROTECTIVE CREAM TO AREA AND BORDER FOAM DRSG, LOW AIR LOSS PUMP TO BED RECOMMENDATIONS; CONT POC, PROTECTIVE CREAM, BORDER FOAM DRSG DAILY AND PRN, LOW AIR LOSS PUMP TO BED, DO NOT SIT LONG PERIODS, SIT ON WAFFLE CUSHION OR PILLOW, OFF LOADING, PRESSURE RELIEF, PURE WICK CATH PRN IF INCONT CLOTH FINISHING RANGE OPERATOR AWARE
[2020-05-02 11:43] VITALS: BP 105/71
[2020-05-02 15:49] VITALS: BP 95/51
--- NOTE | 2020-05-02 17:44 | NUR ---
[employer] not in network. Discussed with spouse options and reviewing to give SW many to choose. Spouse questioned why her hip cannot be repaired. He reports she is in pain and then taking pain meds makes her sleepy. She appears more lucid without but then the pain in the hip. He reports hip sx at in 2019. Planned to see ortho for f/u as patient having pain in hip. Then COVID, missed apt and then admit [facility]. Spouse questions why ortho at [facility] see patient. Can she be under anthesia, can she be evaled? Feel skilled useless if cont with hip pain while working with therapy. Requested phys address.
[2020-05-02 18:25] VITALS: BP 95/51
[2020-05-02 19:50] VITALS: BP 114/73
--- NOTE | 2020-05-03 02:55 | NUR ---
ASSUMED CARE OF PATIENT AT 1900. PATIENT C/O PAIN IN LEFT HIP AT INITIAL ASSESSMENT. TOO EARLY TO ADIMINISTER PAIN MEDICATION AT THAT TIME. REPOSITIONED PATIENT TO PROVIDE SOME RELIEF. PATIENT APPEARED TO SLEEP WELL THROUGH NOC. PATIENT HAS NOT EXHIBITED IMPULSIVE BEHAVIORS SO FAR THIS SHIFT. WILL CONTINUE TO MONITOR.
[2020-05-03 03:52] VITALS: BP 126/69
[2020-05-03 08:15] VITALS: BP 126/69
[2020-05-03 12:10] VITALS: BP 126/69
--- NOTE | 2020-05-03 13:52 | NUR ---
Spoke with spouse referrals to be sent to [facility] and [facility].
[2020-05-03 16:00] VITALS: BP 131/88
--- NOTE | 2020-05-03 17:35 | NUR ---
FAXED REFERRAL TO [facility] THEY ARE OON WITH PT'S INSURANCE. FAXED REFERRAL TO [facility] SPOKE WITH ADM. STEPHANIE AND THEY ARE ALSO OON. FAXED REFERRAL TO [facility] RECEIVED CONFIRMATION AND WILL F/U WITH JAMES IN ADM IN [facility].
--- NOTE | 2020-05-03 18:09 | NUR ---
PT CARE ASSUMED AT 0700. ASSESSMENTS CHARTED. MEDICATION CHARTED. HYDROCODONE FOR LT HIP PAIN. OCCASSIONALLY INCONTINENT. RW - S/L. BARRIER CREAM AND BORDERED FOAM TO BONY PROMINENCE OF SACRUM; DRESSING OFTEN REMOVED BY PT. PT IS AWAITING PLACEMENT IN REHAB FACILITY.
--- NOTE | 2020-05-03 20:05 | NUR ---
1999 PATIENT TRANSFERED PER CHAIR TO 461. DAY RN WENT WITH PATIENT FOR BEDSIDE REPORT. ALL BELONGINGS WITH PATIENT.
[2020-05-03 20:45] VITALS: BP 132/81
--- NOTE | 2020-05-04 04:15 | NUR ---
VSS-AFEBRILE. LUNGS CLEAR-ROOM AIR. RESTLESS AND IMPULSIVE AT BEGINNING OF SHIFT, CALMED AFTER BEING MEDICATED WITH HS MEDICINES. INCONTINENT OF LARGE, SOFT, BM THIS SHIFT. C/O OCCASIONAL BACK PAIN THAT IS COMPLETELY RELIEVED WITH PO PAIN MEDICATIONS. FALL PRECAUTIONS IN PLACE, ABLE TO USE CALL LIGHT WHEN NEEDING ASSISTANCE.
[2020-05-04 08:27] VITALS: BP 116/76
--- NOTE | 2020-05-04 10:41 | NUR ---
WOUND CARE F/U; THIS PATIENT SACRAL,BACK,BUTTOCKS AND HEELS WERE ASSESSED TODAY. THERE ARE NO S/S OF PRESSURE. THE PATIENT HAS A LOW AIR LOSS PUMP ON THE BED DELIVERING PRESSURE REDUCTION THERAPY AND THE DEVICE IS FUNCTIONING PROPERLY. THE PATIENT LEFT HIP IS MODERATLY TENDER RE; S/P LEFT HIP SURGERY. THE HIP REMAINS TENDER AND THE PATIENT REMAINS FEARFULL. I ENCOURAGED HER AND WAS ABLE TO ASSESS THESE AREAS WITH MINIMAL DISCOMFORT. DISCUSSED WITH RUY
--- NOTE | 2020-05-04 11:21 | NUR ---
PT DISCHARGING TODAY TO HOME WITH [facility] FAXED DC ORDERS/SUMMARY RECEIVED CONFIRMATION THEY WILL NOTIFY PT TO SET UP VISITS.
--- NOTE | 2020-05-04 11:27 | NUR ---
FAXED REFERRAL TO [facility] SPOKE WITH JENNIFER IN ADM SHE RECEIVED REFERRAL THEY WILL HAVE TO DENY THEY CANNOT TAKE ANYONE UNDER THE AGE OF 60.
[2020-05-04 13:49] LABS: HEMATOCRIT 32.5 % (37.0-47.0); MCH 34.2 pg (26.0-34.0); MCHC 33.8 g/dL (28.0-37.0); MCV 101.2 fL (80.0-100.0); RBC 3.21 mil/uL (4.20-5.00); RDW 15.5 % (10.5-14.5); WBC 5.5 thou/uL (4.0-11.0)
--- NOTE | 2020-05-04 14:01 | NUR ---
RECEIVED CALL FROM JAMES BROWN THEY [facility] SHE WILL SUBMIT FOR AUTH. DP TO FOLLOW.
[2020-05-04 14:07] LABS: CALCIUM 10.1 mg/dL (8.5-10.1); CREATININE 0.7 mg/dL (0.6-1.0); POTASSIUM 4.1 mmol/L (3.5-5.1)
[2020-05-04 16:08] VITALS: BP 112/73
--- NOTE | 2020-05-04 19:09 | NUR ---
PT ALERT TO SELF ONLY. VSS. C/O PAIN PRN MEDICATIONS GIVEN WITH SOME RELEIF. PT TOLERATES MEDS AND MEALS. PT UP TO BSC WITH ASSIST OF TWO. PT AT BEDSIDE FOR MOST OF THE SHIFT. [facility]OW[facility].
--- NOTE | 2020-05-05 07:00 | NUR ---
Pt. rested quietly at intervals during the night when checked on during frequent rounds. She has been incontinent of urine and stool and has been cleaned up several times during the night. Pt. has also taken off her gown several times. Po pain medication given for c/o pain to her hip (see emar).
[2020-05-05 08:03] VITALS: BP 103/73
[2020-05-05 15:31] VITALS: BP 141/82
--- NOTE | 2020-05-05 17:51 | NUR ---
ASSUMED PATIENT CARE AT 0700. ALERT TO SELF. MAX ASSISTED TO CHAIR. ABLE TO FEED SELF. VSS. SLOWLY TOWARDS POC GOALS.
[2020-05-05 21:13] VITALS: BP 95/63
--- NOTE | 2020-05-06 05:41 | NUR ---
PATIENT ALERT AND ORIENTED X4. SLOW TO RESPOND DUE TO CVA, HOWEVER, MAKES WISHES KNOWN. UP IN CHAIR AT CHANGE OF SHIFT AND RETURNED TO BED X2 ASSIST. C/O PAIN TO LEFT HIP AND MEDICATED WITH GOOD RESULTS. SPOKE WITH THIS NURSE REGARDING MIRILAX SCHEDULED BID. THIS NURSE INFORMED HIM THAT THE PATIENT HAD A BM DURING THE NIGHT WHICH WAS SOFT AND FORMED AND THAT [place] THAT MEDICATION IS SCHEDULED IF HER STOOLS BECOME TOO LOOSE IT WILL BE HELD ON NURSING JUDGEMENT. RESTING QUIETLY. WILL MONITOR.
[2020-05-06 07:55] VITALS: BP 110/73
--- NOTE | 2020-05-06 12:32 | NUR ---
Assumed pt care at 7am.Pt in bed resting and c/o lt hip pain.Lidocaine patch applied with relief.Assessment completed.vss.Pt took all am meds with breakfast except miralax.Pt has moderate brown soft stool.Pericare given and repositioned for comfort.Fall precaution in place. at bs.Dr Brown here,no new order noted.Will continue to monitor.
[2020-05-06 15:17] VITALS: BP 101/67
[2020-05-06 19:40] VITALS: BP 113/69
--- NOTE | 2020-05-07 04:22 | NUR ---
VSS-AFEBRILE. RESTLESS AND AGITATED EARLY IN SHIFT, THEN SETTLED WELL AND SLEPT. C/O BACK PAIN THAT IS WELL RELIEVED WITH PO PAIN MEDICATION. TURNS SELF IN BED. ALERT AND ORIENTED X 4, SPEAKING TAKES EXTRA TIME IT IS DIFFICULT FOR HER TO FIND HER WORDS. FALL PRECAUTIONS IN PLACE, CALLS APPROPRIATELY FOR ANY NEEDED ASSISTANCE.
[2020-05-07 08:10] VITALS: BP 154/80
--- NOTE | 2020-05-07 10:30 | NUR ---
WOUND CARE F/U; SPOUSE AT BS, PT UP IN CHAIR, ASSESSED SACRAL AREA, AREA PINK, NO OPEN AREAS, NO S/S INFECTION, STILL SOME CONFUSION AT TIMES, INCONT AT TIMES, DENIES PAIN THIS AM, ORDERED LOW AIR LOSS PUMP TO BED ONE NOT ON BED WHEN PT WAS TRANSFERRED TO [facility] RECOMMENDATIONS; DUE TO HX SKIN BREAKDOWN AND BONY PROMINENCE SUGGEST TO CONT BARRIER CREAM AND COVER W/ BORDER FOAM DRSG DAILY AND PRN, CONT PRESSURE RELIEF, OFF LOADING, LOW AIR LOSS PUMP TO BED BED AND BREAKFAST INNKEEPER INFORMED
--- NOTE | 2020-05-07 14:28 | NUR ---
FAXED CLINICAL UPDATE TO [facility] SPOKE WITH JAMES BROWN SHE RECEIVED UPDATE.
[2020-05-07 15:50] VITALS: BP 110/76
--- NOTE | 2020-05-07 16:07 | NUR ---
STILL AWAITING TONE MOREIRA FOR PT TO GO TO [facility]. CLINICAL UPDATES SENT THIS AM.
[2020-05-07 19:20] VITALS: BP 101/66
--- NOTE | 2020-05-07 19:43 | NUR ---
PATIENT UP IN BEDSIDE CHAIR ON SHIFT. USES BSC FOR BOWEL AND BLADDER ELIMINATION HAD MED BM ON SHIFT TAKES MEDS PO AND DRINKS FLUIDS APPETITE IS POOR. AT BEDSIDE MAKES FREQ TRIPS TO NURSES STATION. PT WORKED WITH THERAPY. HAS LOW AIR LOSS MATRESS AND CREAM TO BUTTOCKS. HAS RIGHT FA IV THAT IS SL.
--- NOTE | 2020-05-08 03:09 | NUR ---
ASSUMED CARE FROM DAY SHIFT PT UP IN CHAIR , PT VERY WEAK WHEN ASSISTED TO BSC, PT VERY FORGETFUL AND CONFUSED,ASKING FOR PAIN MEDICATION THROUGHOUT THE NIGHT. PT INCONTINENT OF URINE .BED ALARM ON FOR SAFETY. WILL CONITNUE WITH CURRENT PLAN OF CARE.
[2020-05-08 07:00] VITALS: BP 132/82
--- NOTE | 2020-05-08 13:47 | NUR ---
Assumed pt care at 7am.Pt in bed alert and oriented x4 but forgetful. Assessment completed.vss.Pt in bed for breakfast. Meds given and well tolerated.Pt has good appetite.Dr Cleveland here,order noted.Pt still waiting for authourization from [facility] emergency department before dc to snf. at bs at present.Pt up to bsc with max.assist voided and has large bm.Pericare given and will continue to monitor.
--- NOTE | 2020-05-08 16:23 | NUR ---
UPDATED THERAPY NOTES HAVE BEEN FAXED TO FACILITY. CM SPOKE WITH PT AND SIG OTHER THIS DAY AND PROVIDED UPDATE. STILL AWAITING [facility] FOR PT TO GO TO [facility]. CM TO FOLLOW INDICATED WITH DC PLANNING.
[2020-05-08 19:25] VITALS: BP 106/67
--- NOTE | 2020-05-09 04:05 | NUR ---
Assumed pt care at 1900. A/OX3,able to make needs known and yelling out for help frequently for pain meds even though it's not time for meds;times written on the board and pt informed about it. HS meds administered on time though took a while to kick in. called twice to check on pt's status and updated. Incontinent of bladder,pericare done as needed.moisture barrier applied. On a STAS,able to reposition self in bed. Fall precautions in place,calls approp for help. Resting quietly at this time w/o any distress will continue to monitor pt.
[2020-05-09 07:16] VITALS: BP 117/76
--- NOTE | 2020-05-09 12:14 | EEG ---
[facility] [place] [address] [place] [address] ELECTROENCEPHALOGRAM Name: ALLAN PRYOR Room #: 461-P ADM IN M.R.#: [id number] Admission: 04/25/20 Attend Phys: Toney Israel MD Discharge: Date of : 56 Report #: [id number] THIS REPORT FOR: //name// CC: Toney Israel [facility] unknown DATE OF SERVICE: 04/26/2020 This patient is being evaluated for altered mental status. EEG is being done to evaluate the possibility of seizure as the patient has sudden deterioration in her consciousness. EEG was done by placing the electrode by standard 10-20 system of electrode placement. Both referential and sequential montages were used for recording. Background activity in this patient's EEG is about 7-8 Hz and 15 microvolt. It is intermixed with theta range slowing. Photic stimulation was unremarkable. Throughout the record, no active epileptiform activity was noticed. IMPRESSION: This patient's EEG is slow and poorly formed. That is a nonspecific abnormality, which can occur with dementia, encephalopathy, effect of psychotropic medication, etc. Clinical correlation is recommended. <ELECTRONICALLY SIGNED> By: Blaise Pantoja MD 05/09/20 1214 34 51 Blaise Pantoja MD /nt
--- NOTE | 2020-05-09 12:14 | HC ---
[facility] [address] [place] [address] CONSULTATION Name: ALLAN PRYOR Room #: 461-P ADM IN M.R.#: [id number] Admission: 04/25/20 Attend Phys: Toney Israel MD Discharge: Date of : 56 Report #: [id number] THIS REPORT FOR: cc: DANIEL - Family physician unknown DANIEL - Family physician unknown Blaise Pantoja MD ~ CC: Toney SANCHEZ unknown DATE OF SERVICE: 04/25/2020 HISTORY OF PRESENT ILLNESS: This is a 59-year-old female patient who was evaluated by me for stroke protocol. This patient's records are confusing at the moment because she has been dismissed from the rehab and part of the records are there and part of the records is in the active hospitalization. I talked to the nurses on the rehab floor and I talked to psychiatrist, Dr. Mueller, and subsequently talked to the nurses on [address]. I talked to the nurse practitioner, Jo, who is admitting this patient and I talked to the patient's in detail. The history is not very clear even after doing all those. It looks like the patient's symptoms are going on at least since yesterday. According to the and the nurses, her cognition was becoming somewhat better, but then she started saying yes and no, she became agitated, some weakness in the leg has been noticed and we had evaluated this patient for the weakness. I had scheduled an MRI of the thoracic spine. I am not sure why it was canceled, but the patient did have an MRI of the brain as well as cervical spine, which does not show any cord compression. I need to talk more to them about what happened on the rehabilitation, as she has been weak when she came in. In fact, I just looked at the records and looks like MRI of the thoracic spine was canceled, because the patient's family has refused. Even on today's conversation, the patient's does not think she had a stroke and he is not enthusiastic to get any workup done. I have called the nurse practitioner, Jo, and she called back and she talked to the nurses and they said CT protocol was done, but I cannot find it anywhere. REVIEW OF SYSTEMS: Positive for hypertension, hypothyroidism, cardiac arrest, tobacco and alcohol abuse. Nonischemic cardiomyopathy and now the patient is confused and agitated. She has been on a vent and her cognition has been poor. She does have chronic occlusion of the carotid. Review of systems is also pretty extensive and is summarized in prior notes. PAST MEDICAL HISTORY: Positive for heavy alcoholism and I have seen this patient in the past and she has been on rehabilitation for some time now. SOCIAL HISTORY: She is . I have talked to her son. I have also talked to her 's including today. [address] [address] CONSULTATION Name: ALLAN PRYOR Room #: 461-P [facility] IN M.R.#: [id number] Admission: 04/25/20 Attend Phys: Toney Israel MD Discharge: Date of : 56 Report #: [id number] FAMILY HISTORY: Noncontributory. PHYSICAL EXAMINATION: Almost impossible. She is agitated. She just says yes or no. It looks like she can move all 4 extremities. She is weaker all over. She has been weak even before that especially on the left leg sometime, it is not possible to do the sensory examination. IMPRESSION: It is not possible to tell if the patient had a seizure or not. Even if it happened, it happened yesterday. She may be encephalopathic and CT angio and perfusion is still pending. I cannot find the film. If we are able to find the films, I will look at it, but I doubt we will be able to do any intervention and presently it is not even certain it was a stroke, and if it was, it was outside the window for any intervention. I spent more than 50 minutes of time in taking care of this patient and majority of time was spent in counseling and coordinating. <ELECTRONICALLY SIGNED> By: Blaise Pantoja MD 05/09/20 1214 [id number] [id number] Blaise Pantoja MD /nt
--- NOTE | 2020-05-09 14:35 | NUR ---
UPDATED THERAPY NOTES WERE SENT TO [facility] AGAIN THIS DAY. CM REACHED OUT TO LIAISON AND SHE INDICATED THAT INSURANCE STILL INDICATES PENDING. CM MET [facility] PT AND SIG OTHER THIS DAY AND INDICATED THAT ABOVE. SIG OTHER AGAIN ASKED FOR SOMEONE TO SPEAK TO AT THE FACILITY. BESSY LIAISON IS TO REACH OUT TO HIM. CM TO FOLLOW INDICATED WITH DC PLANNING.
[2020-05-09 15:50] VITALS: BP 111/64
[2020-05-09 19:53] VITALS: BP 117/79
--- NOTE | 2020-05-09 19:54 | NUR ---
Assumed pt care this am, alert and oriented x 2, delay in response. Left sided weakness notes, at the bed side, would speak on behalf of the pt. Incontinent of both bowel and bladder, stayed on the recliner for most of the day. POC followed witn no signs or verbalization of distress noted.
--- NOTE | 2020-05-10 05:03 | NUR ---
Assumed pt care at 1900. A/OX3,VSS. Up with moderate assist to BSC.Incontinent of bladder.Pt medicated on time with new sleep med with relief noted. C/o pain to Left hip/lower back,medicated per EMAR with relief reported. Fall precautions in place,calls approp for help. Resting quietly at this time,will continue to monitor pt.
[2020-05-10 08:08] VITALS: BP 132/84
--- NOTE | 2020-05-10 10:58 | NUR ---
WOUND CARE F/U ASSESS COCCYX W/ STUDENT NURSES X2, SPOUSE AT BS, PT ALERT, COOPERATIVE, COCCYX AREA ALL HEALED, INTACT, BARRIER CREAM APPLIED, LOW AIR LOSS PUMP STILL ON BED, ENCOURAGED TO NOT SIT LONG PERIODS. WILL SIGN OFF, RECONSULT IF NEEDED RECOMMENDATIONS; CONT LOW AIR LOSS TO BED, PRESSURE RELIEF MEASURES, OFF LOADING, APPLY BARRIER CREAM DAILY PRN, MONITOR SKIN CLOSELY TURRET LATHE SET UP OPERATOR AWARE
--- NOTE | 2020-05-10 15:15 | NUR ---
FAXED CLINICAL UPDATE TO [facility] SPOKE WITH JAMES IN ADM SHE RECEIVED UPDATE, STILL WTG ON AUTH.
--- NOTE | 2020-05-10 15:52 | NUR ---
STILL AWAITING [facility] FOR PT TO DC TO [facility]. CM NOTIFIED PT AND SIG OTHER THIS AFTERNOON. CM TO FOLLOW INDICATED WITH DC PLANNING.
[2020-05-10 15:55] VITALS: BP 107/67
--- NOTE | 2020-05-10 16:01 | NUR ---
ASSUMED CARE OF PATIENT AT SHIFT CHANGE. ASSESSMENT CHARTED. MEDS GIVEN PER MAR. VSS. PATIENT IS ALERT TO HERSELF AND SOMETIMES PLACE BUT IS VERY CONFUSED AND NEEDS CONSTANT REDIRECTION. PATIENTS APPETITE IS GOOD. PATIENT WAS UP WITH MAXIMUM ASSISTANCE AND DID NOT TOLERATE VERY WELL. SORE ON BOTTOM IS HEALING WELL. PATIENT TURNS SELF AND IS ON A PILLOW WHEN IN CHAIR. BARRIER CREAM APPLIED AFTER VOIDING. PATIENT HAS CONSTANT PAIN. PRN PAIN MEDS GIVEN PER ORDER. SPOUSE IS AT BEDSIDE. VOICES NO OTHER NEEDS. WILL CONTINUE TO MONITOR.
[2020-05-10 20:55] VITALS: BP 113/64
--- NOTE | 2020-05-11 05:14 | NUR ---
Assumed pt care at 1900. A/OX3,able to make needs known. C/o pain to left hip/back medicated per EMAR with relief reported. Pt's continent/incontinent of bladder and voids in bedpan at times. C/o abd cramping at HS,BS hyperactive Simethicone given with relief reported. Fall precautions in place,calls approp for help. Verbalized looking forward to dc today.
[2020-05-11 07:48] VITALS: BP 141/90
[2020-05-11] MEDS ORDERED: DALMANE15 MG PO (08:52)
[2020-05-11] MEDS ORDERED: NORCO 10-325 T1 EACH PO (09:26)
[2020-05-11 09:52] VITALS: BP 141/90
--- NOTE | 2020-05-11 11:48 | NUR ---
TONE MOREIRA FOR [facility] AT [facility] HAD BEEN GIVEN YESTERDAY AT 1620. CM NOTIFIED SIG OTHER AND PHYSICIAN THAT AUTH WAS RECIEVED. CM NOTIFIED PT'SS SIG OTHER THAT DC COULD AND LIKELY WOULD BE FACILITIATED FOR YESTERDAY EVENING AND HE INDICATED THAT "IT WOULD BE INHUMANE TO DISCHARGE PT AT SUCH A LATE HOUR." CM NOTIFIED PHYSICIAN AND DISCHARGE WAS SCHEDULED FOR 11:30AM TODAY Thursday05/11/20. PT'S SIG OTHER WAS AWARE. CHART COPY MADE. ORDERS FAXED BY [facility]. NURSE GIVEN NUMBER FOR REPORT. PT DISCHARGED TO [facility] AT 11:30 AM. PT'S SIG OTHER WAS AT BEDSIDE. NO OTHER CM INTERVENTION INDICATED. CASE CLOSED.
--- NOTE | 2020-05-11 12:46 | NUR ---
Received awake on bed. Due medications given as prescribed, able to swallow meds w/o difficulty. On room air. Vital signs stable. On MS, not on telemetry; no complaints of chest pain, crushing sensation and heaviness. On regular diet- tolerating well, no complaints of nausea, vomiting and abdominal pain; assisted and encouraged in eating and drinking; compliant with supplements. No IV noted upon assessment. Continent of bowel and bladder, able to use bedpan and bedside commode with moderate assist, gait belt and walker. Falls bundle in place. On low airloss mattress. Reported to have a wound- checked pt's sacrum, fully healed- read wound nurse's notes as well, wound fully healed upon her assessment yesterday. Visited by her today- update given. Assisted in ADLs. Complained of hip pain, due PRN pain meds given as prescribed. Pt seen and examined by Dr Cleveland- discharge orders made- CM informed. set up transport at 1130- pt and informed. Discharge instructions, follow up schedule given and instructed to pt's . Chart copy and prescription given to transport staff- to be given to facility. Report given to Staff [facility]- informed her re: time of last pain given, lidocaine patch at L hip this AM. No IV, no telemetry. Pt transferred to transport wheelchair safely. Pt discharged with her personal belongings, present during discharge. Patient discharged.
== END 2020-05-11 11:50 | DRG 91 ==
LOC: 2N 12:17 → 4W 12:43 → 2N 12:59 → 4W 05-03 20:00
PROVIDERS: Internal Medicine; Nurse Practitioner; Psychiatry & Neurology Neurology; Psychiatry & Neurology Neuromuscular Medicine; Psychiatry & Neurology Psychiatry; ADMIT Hospitalist; ATTEND Hospitalist
DX: G92 Toxic encephalopathy (principal); E43 Unspecified severe protein-calorie malnutrition; J96.01 Acute respiratory failure with hypoxia; I46.9 Cardiac arrest, cause unspecified; G93.1 Anoxic brain damage, not elsewhere classified; I42.8 Other cardiomyopathies; Z68.1 Body mass index [BMI] 19.9 or less, adult; N39.0 Urinary tract infection, site not specified; G72.81 Critical illness myopathy; K86.3 Pseudocyst of pancreas; E53.8 Deficiency of other specified B group vitamins; Z20.828 Contact with and (suspected) exposure to other viral communicable diseases; I10 Essential (primary) hypertension; E03.9 Hypothyroidism, unspecified; F41.9 Anxiety disorder, unspecified; G47.00 Insomnia, unspecified; F22 Delusional disorders; R62.7 Adult failure to thrive; B96.20 Unspecified Escherichia coli [E. coli] as the cause of diseases classified elsewhere; K59.00 Constipation, unspecified; D47.3 Essential (hemorrhagic) thrombocythemia; D64.9 Anemia, unspecified; K86.9 Disease of pancreas, unspecified; G31.2 Degeneration of nervous system due to alcohol; G62.9 Polyneuropathy, unspecified; M19.90 Unspecified osteoarthritis, unspecified site; R41.0 Disorientation, unspecified; G40.409 Other generalized epilepsy and epileptic syndromes, not intractable, without status epilepticus; I65.29 Occlusion and stenosis of unspecified carotid artery; F29 Unspecified psychosis not due to a substance or known physiological condition; Z88.6 Allergy status to analgesic agent; Z88.8 Allergy status to other drugs, medicaments and biological substances; Z90.710 Acquired absence of both cervix and uterus; Z87.891 Personal history of nicotine dependence; Z93.3 Colostomy status; Z82.49 Family history of ischemic heart disease and other diseases of the circulatory system; Z83.79 Family history of other diseases of the digestive system; Z79.899 Other long term (current) drug therapy; Z86.74 Personal history of sudden cardiac arrest
CPT/HCPCS: 10040; 10045; 10081; 10797